=== PATIENT | female | born 1940 | race Two or more races ===

== ENCOUNTER 2018-04-25 16:19 | Inpatient (IN) | payer MEDICARE, MEDICAID ==
[~2018-04-25] VITALS: Ht 157.5 cm; Wt 65.8 kg
[2018-04-25] MEDS ORDERED: METHYL SALICYLATE/MENTHOL TOPICAL OINTMENT 29GM TUBE. TP PRN (17:45)
[2018-04-25] MEDS ORDERED: ACETAMINOPHEN 325 MG TABLET PO PRN (17:45)
[2018-04-25] MEDS ORDERED: MAG HYDROX/AL HYDROX/SIMETH 30 ML ORAL.SUSP PO PRN (17:45)
[2018-04-25] MEDS ORDERED: MAGNESIUM HYDROXIDE 2,400 MG/30 ML ORAL.SUSP. PO PRN (17:45)
[2018-04-25 17:48] VITALS: BP 146/64
[2018-04-25] MEDS ORDERED: FURO20TA3 PO (19:11)
[2018-04-25] MEDS ORDERED: ESCI10TA2 PO (19:11)
[2018-04-25] MEDS ORDERED: PANT40TA3 PO (19:11)
[2018-04-25] MEDS ORDERED: SENN-80 PO (19:11)
[2018-04-25] MEDS ORDERED: SODI44SP NS (19:11)
[2018-04-25] MEDS ORDERED: CALC11776 PO (19:11)
[2018-04-25] MEDS ORDERED: SAXA5TAB PO (19:11)
[2018-04-25] MEDS ORDERED: LORA0.5T PO (19:11)
[2018-04-25] MEDS ORDERED: CARB1TAB22 PO (19:11)
[2018-04-25] MEDS ORDERED: LEVO50TA5 PO (19:11)
[2018-04-25] MEDS ORDERED: RISP0.5T3 PO (19:11)
[2018-04-25] MEDS ORDERED: LEVO5TAB29 PO (19:11)
[2018-04-25] MEDS ORDERED: MEMA10TA PO (19:11)
[2018-04-25] MEDS ORDERED: LOSA50TA86 PO (19:11)
[2018-04-25] MEDS ORDERED: POTA10TA10 PO (19:11)
[2018-04-25] MEDS ORDERED: METF10007 PO (19:11)
[2018-04-25] MEDS ORDERED: DONE5TAB7 PO (19:11)
[2018-04-25] MEDS ORDERED: OXYB5TAB7 PO (19:11)
[2018-04-25] MEDS ORDERED: HYDR-3165 PO (19:11)
[2018-04-25] MEDS ORDERED: CHOL5POW PO (19:11)
[2018-04-25] MEDS ORDERED: ATOR10TA60 PO (19:11)
[2018-04-25] MEDS ORDERED: LISI2.5T PO (19:11)
[2018-04-25] MEDS ORDERED: CALCIUM CARBONATE 500 MG TAB.CHEW PO PRN (19:45)
--- NOTE | 2018-04-25 20:20 | HP ---
ADMIT DATE: 04/25/2018 PSYCHIATRIC ADMISSION HISTORY/EVALUATION This note covers elements not covered in my initial note on 04/25/2018. IDENTIFYING DATA: The patient is a 77-year-old female referred to us from [place], [place] by Dr. Yusuf Gruber, her primary care physician. After the patient was referred to the Emergency Room at [facility] from [facility] where she resides, the patient had been refusing medications for the past 4 days. She had been agitated, combative, threatening staff, anxious, fearful, uncooperative. She had been to the ER x 2 and adjustments had been attempted in her psychotropics including Aricept, Ativan p.r.n., Namenda, and Risperdal. She has been at [facility] inpatient psychiatry service in the past. She has failed all of this and then was admitted to [facility] from the ER. She was medically stabilized. The behavior is persisted. Nursing facility were unable to take her back until she was psychiatrically stable and we have been contacted with the request for inpatient psychiatric stabilization. CHIEF COMPLAINT: "I came here today." HISTORY OF PRESENT ILLNESS: The patient has a history of dementia, Alzheimer's vascular type. She has been residing on the memory care unit at [facility]. At times, she seems more oriented than other times. She has had sleep and appetite changes, increasing paranoia. No active suicidal or homicidal ideation. She has been quite paranoid, psychotic, and agitated. PAST PSYCHIATRIC HISTORY: As noted above including inpatient psychiatric hospitalization at [facility] in the past and we will request those records. PAST MEDICAL HISTORY: Positive for diabetes mellitus, peripheral neuropathy, hypertension, dyslipidemia, recurrent falls, anemia. ALLERGIES: PENICILLIN, MEDROL DOSEPAK. DIET: She is 2% transfer on a carb-controlled diet. FAMILY HISTORY: Noncontributory. SOCIAL HISTORY: No history of alcohol or drug abuse, physical, sexual, or elder abuse. Not known to be a perpetrator. 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 REACTION TO HOSPITALIZATION: The patient is accepting of it. ASSETS: Supportive family. MENTAL STATUS EXAMINATION: The patient was seen individually evening of 04/25/2018. The patient is oriented to herself. Insight, judgment, recent and remote memory, attention, concentration, fund of knowledge poor, consistent with her diagnosis. Nevertheless, the patient did know she was administered earlier today. She knew the year was 2018, unsure of the date, thought the president was president Ector, then changed it to President Mata and then finally with some assistance from me, she was able to recognize president Cooper as the president. She was unaware how long he had been president. Unable to do serial 7's. LABORATORY DATA: Reviewed. IMPRESSION: Major neurocognitive disorder, Alzheimer, vascular with delusion, depression, behavioral disturbance; anxiety disorder, unspecified; impulse control disorder, unspecified. Rest as above. PLAN: Admit to Geropsychiatry Unit at [facility]. I will see the patient daily individually from a psychiatric standpoint, medical followup with Dr. Anderson. Continue the patient on her current psychotropics and I have reviewed the EMRAD. Observe the patient's baseline, then adjust as clinically indicated. KYE BOLIVAR MD DR: MARGARITA/tiffanie JOB#: [id number] / [id number]
[2018-04-25] MEDS: SENNOSIDES 8.6 MG TABLET PO SCH (20:53)
[2018-04-25] MEDS: CHOLESTYRAMINE/ASPARTAME 4 GM PACKET PO SCH (20:53)
[2018-04-25] MEDS: risperiDONE 0.25 MG TABLET. PO SCH (20:53)
[2018-04-25] MEDS: MEMANTINE 10 MG TABLET. PO SCH (20:53)
[2018-04-25] MEDS: DONEPEZIL HCL 5 MG TABLET. PO SCH (20:54)
[2018-04-25] MEDS: CETIRIZINE HCL 10 MG TABLET PO SCH (20:54)
[2018-04-25] MEDS: POTASSIUM CHLORIDE 10 MEQ TABLET.ER. PO SCH (20:54)
[2018-04-25] MEDS: ATORVASTATIN CALCIUM 10 MG TABLET. PO SCH (20:54)
[2018-04-25] MEDS: LINAGLIPTIN 5 MG TABLET PO SCH (20:54)
[2018-04-25] MEDS: CARBIDOPA/LEVODOPA 25/100MG TABLET PO SCH (20:54)
[2018-04-25] MEDS: CITALOPRAM 20 MG TABLET. PO SCH (20:54)
[2018-04-25] MEDS: SODIUM CHLORIDE 0.65% NASAL SPRAY 45ML BOTTLE. NS SCH (20:55)
--- NOTE | 2018-04-25 22:57 | PDOC ---
Exam Note: Dileep Note: Please also refer to the separate dictated note~for this date of service dictated separately. Discussed the patient with Nursing staff reviewed the chart.~Reviewed interim history and current functioning. Reviewed vital signs,~ Labs/ Radiology~and current medications noted below. Continue current treatment with the changes noted in the dictated addendum note Assessment: Vital Signs: Vital Signs Date Time Temp Pulse Resp B/P (MAP) Pulse Ox O2 Delivery O2 Flow Rate FiO2 04/25/18 17:48 97.4 73 20 146/64 (91) 96 Labs: Laboratory Tests Test 04/25/18 18:10 Magnesium Level 1.7 mg/dL (1.8-2.4) L Current Medications: Meds: Current Medications Acetaminophen (Tylenol) 650 mg PRN Q6HRS PRN PO PAIN / TEMP; Start 04/25/18 at 17:45 Multi-Ingredient Ointment (Analgesic [place]) 1 anne PRN QID PRN TP MUSCLE PAIN; Start 04/25/18 at 17:45 Al Hydroxide/Mg Hydroxide (Mylanta Plus Xs) 15 ml PRN AFTMEALHC PRN PO DYSPEPSIA; Start 04/25/18 at 17:45 Magnesium Hydroxide (Milk Of Magnesia) 2,400 mg PRN QHS PRN PO CONSTIPATION; Start 04/25/18 at 17:45 Carbidopa/Levodopa (Sinemet 25/100) 1 tab TID PO Last administered on at 20:54; Start 04/25/18 at 21:00 Donepezil HCl (Aricept) 5 mg QHS PO Last administered on 04/25/18at 20:54; Start 04/25/18 at 21:00 Citalopram Hydrobromide (CeleXA) 20 mg QHS PO Last administered on 04/25/18at 20 :54; Start 04/25/18 at 21:00 Lorazepam (Ativan) 0.25 mg PRN Q6HRS PRN PO ANXIETY / AGITATION; Start at 19:30 Memantine (Namenda) 10 mg BID PO Last administered on 04/25/18at 20:53; Start at 21:00 Risperidone (RisperDAL) 0.25 mg QHS PO Last administered on 04/25/18at 20:53; Start 04/25/18 at 21:00 Furosemide (Lasix) 20 mg DAILY PO ; Start 04/26/18 at 09:00 Losartan Potassium (Cozaar) 100 mg DAILY PO ; Start 04/26/18 at 09:00 Oxybutynin Chloride (Ditropan) 5 mg DAILYBFRSUP PO ; Start 04/26/18 at 17:00 Atorvastatin Calcium (Lipitor) 10 mg QHS PO Last administered on 04/25/18at 20: 54; Start 04/25/18 at 21:00 Calcium Carbonate/ Glycine (Tums) 1,000 mg PRN BID PRN PO DYSPEPSIA; Start at 19:45 Cholestyramine Resin (Questran Light) 4 gm BID PO Last administered on at 20:53; Start 04/25/18 at 21:00 Acetaminophen/ Hydrocodone Bitart (Lortab 5/325) 1 tab PRN Q6HRS PRN PO PAIN; Start 04/25/18 at 19:45 Cetirizine HCl (ZyrTEC) 10 mg QHS PO Last administered on 04/25/18at 20:54; Start 04/25/18 at 21:00 Levothyroxine Sodium (Synthroid) 50 mcg DAILY06 PO ; Start 04/26/18 at 06:00 Lisinopril (Prinivil) 2.5 mg DAILY PO ; Start 04/26/18 at 09:00 Metformin HCl (Glucophage) 1,000 mg DAILYWBKFT PO ; Start 04/26/18 at 08:00 Pantoprazole Sodium (Protonix) 40 mg DAILY06 PO ; Start 04/26/18 at 06:00 Potassium Chloride (Klor-Con) 10 meq QHS PO Last administered on 04/25/18at 20: 54; Start 04/25/18 at 21:00 Linagliptin (Tradjenta) 5 mg QHS PO Last administered on 04/25/18at 20:54; Start 04/25/18 at 21:00 Sennosides (Senna) 8.6 mg QHS PO Last administered on 04/25/18at 20:53; Start at 21:00 Sodium Chloride (Saline Mist Nasal) 1 anne QID NS Last administered on at 20:55; Start 04/25/18 at 21:00 Active Scripts Active Reported Xyzal (Levocetirizine Dihydrochloride) 5 Mg Tablet 5 Mg PO QHS Tums Ultra Strength (Calcium Carbonate) 1,177 Mg Tab.chew 1,177 Mg PO PRN BID PRN Senna (Sennosides) 8.6 Mg Tablet 8.6 Mg PO QHS Risperidone 0.5 Mg Tablet 0.25 Mg PO QHS Protonix (Pantoprazole Sodium) 40 Mg Tablet.dr 40 Mg PO DAILY06 Potassium Chloride 10 Meq Tablet.er 10 Meq PO QHS Oxybutynin Chloride 5 Mg Tablet 5 Mg PO DAILYBFRSUP Onglyza (Saxagliptin Hcl) 5 Mg Tablet 5 Mg PO QHS Metformin Hcl 1,000 Mg Tablet 1,000 Mg PO DAILYWBKFT Namenda (Memantine Hcl) 10 Mg Tablet 10 Mg PO BID Losartan Potassium (Losartan Potassium) 50 Mg Tablet 100 Mg PO DAILY Lorazepam 0.5 Mg Tablet 0.25 Mg PO PRN Q6HRS PRN Lisinopril 2.5 Mg Tablet 2.5 Mg PO DAILY Levothyroxine Sodium 50 Mcg Tablet 50 Mcg PO DAILY06 Furosemide 20 Mg Tablet 20 Mg PO DAILY Escitalopram Oxalate 10 Mg Tablet 10 Mg PO QHS Donepezil Hcl 5 Mg Tablet 5 Mg PO QHS [place] (Sodium Chloride) 44 Ml [place] 44 Ml NS QID Cholestyramine Resin (Cholestyramine) 5 Gm Powder 4 Gm PO BID Carbidopa-Levodopa 25-100 Tab (Carbidopa/Levodopa) 1 Each Tablet 1 Each PO TID Atorvastatin Calcium 10 Mg Tablet 10 Mg PO QHS [place] 5-325 Tablet (Hydrocodone Bit/Acetaminophen) 1 Each Tablet 1 Tab PO PRN Q6HRS PRN I have reviewed the current psychotropics carefully including drug interactions. Risk benefit ratio favors no change other than as noted in my dictated progress note. Diagnosis: Problems: (1) Anxiety disorder (2) Dementia in Alzheimer's disease with depression (3) Dementia in Alzheimer's disease with delusions (4) Dementia, vascular, with delusions (5) Dementia, vascular, with depression (6) Impulse control disorder (7) Major depressive disorder, recurrent episode KYE BOLIVAR MD Apr 25, 2018 22:57
[2018-04-25 23:39] LABS: BACTERIA,URINE MANY /HPF (0-FEW); BILIRUBIN,URINE NEG (NEG); CLARITY,URINE CLEAR; COLOR,URINE YELLOW; GLUCOSE,URINE NEG (NEG); NITRITE,URINE NEG (NEG); RBC,URINE 0 /HPF (0-2); SQUAMOUS EPITHELIAL CELL,UR OCC /LPF; UROBILINOGEN,URINE 0.2 mg/dL (0.2 mg/dL)
[2018-04-26] MEDS ORDERED: PANTOPRAZOLE 40 MG TABLET. PO SCH (06:00)
[2018-04-26] MEDS: LEVOTHYROXINE 50 MCG TABLET PO SCH (06:06)
[2018-04-26 06:38] VITALS: BP 146/66
[2018-04-26 07:13] LABS: HEMOGLOBIN A1C 7.6 % (4.8-5.6)
[2018-04-26] MEDS ORDERED: metFORMIN 500 MG TABLET PO SCH (08:00)
[2018-04-26] MEDS: CHOLESTYRAMINE/ASPARTAME 4 GM PACKET PO SCH ×2 (08:04→19:27)
[2018-04-26] MEDS: HYDROcodone/APAP 5/325MG 1 TAB TABLET PO PRN ×2 (08:04→18:16)
[2018-04-26] MEDS: LISINOPRIL 2.5 MG TABLET PO SCH (08:05)
[2018-04-26] MEDS: PANTOPRAZOLE 40 MG TABLET. PO SCH (08:05)
[2018-04-26] MEDS: metFORMIN 500 MG TABLET PO SCH ×2 (08:05→17:50)
[2018-04-26] MEDS: CARBIDOPA/LEVODOPA 25/100MG TABLET PO SCH ×3 (08:06→19:30)
[2018-04-26] MEDS: FUROSEMIDE 20 MG TABLET PO SCH (08:06)
[2018-04-26] MEDS: MEMANTINE 10 MG TABLET. PO SCH ×2 (08:06→19:26)
[2018-04-26] MEDS: LOSARTAN 50 MG TABLET. PO SCH (08:06)
[2018-04-26] MEDS: SODIUM CHLORIDE 0.65% NASAL SPRAY 45ML BOTTLE. NS SCH ×4 (08:48→21:00)
--- NOTE | 2018-04-26 10:34 | RAD ---
RS Compliance Statement: One or more of the following individualized dose reduction techniques were utilized for this examination: 1. Automated exposure control 2. Adjustment of the mA and/or kV according to patient size 3. Use of iterative reconstruction technique CT head without contrast 04/26/2018 8:00 AM INDICATION: Altered mental status, multiple falls COMPARISON: None available TECHNIQUE: Multiple axial CT images of the head were obtained from skull base through the vertex without intravenous contrast. FINDINGS: Head: Ventricles, sulci and basal cisterns are within normal limits. Low-attenuation in the periventricular white matter is suggestive of chronic small vessel ischemic changes. There is encephalomalacia in the right temporal pole. There is no hydrocephalus. [place]-white matter differentiation is normal. There is no acute intracranial hemorrhage. There is no mass, mass effect or midline shift. Posterior fossa is normal in appearance. Findings are suggestive of hyperostosis frontalis internal. Visualized portions of the orbits are normal. Moderate mucosal thickening of the left ethmoid air cells. Mastoid air cells are well aerated. Scalp and calvaria are normal. IMPRESSION: No acute intracranial hemorrhage. Low-attenuation in the periventricular white matter is suggestive of chronic small vessel ischemic changes. There is encephalomalacia involving the right temporal pole. Correlate with any prior history of trauma or infarct. Electronically signed by: Nilda Vegas MD (04/26/2018 10:29 AM) [id number]
[2018-04-26] MEDS: LORazepam 0.5 MG TABLET PO PRN ×2 (13:29→18:16)
[2018-04-26] MEDS ORDERED: CHOLECALCIFEROL (VITAMIN D3) 50,000 UNIT CAPSULE PO SCH (16:15)
[2018-04-26 16:16] VITALS: BP 160/85
[2018-04-26] MEDS ORDERED: OXYBUTYNIN CHLORIDE 5 MG TABLET PO SCH (17:00)
[2018-04-26] MEDS: POTASSIUM CHLORIDE 10 MEQ TABLET.ER. PO SCH (19:25)
[2018-04-26] MEDS: DONEPEZIL HCL 5 MG TABLET. PO SCH (19:26)
[2018-04-26] MEDS: CETIRIZINE HCL 10 MG TABLET PO SCH (19:26)
[2018-04-26] MEDS: SENNOSIDES 8.6 MG TABLET PO SCH (19:26)
[2018-04-26] MEDS: LINAGLIPTIN 5 MG TABLET PO SCH (19:26)
[2018-04-26] MEDS: risperiDONE 0.25 MG TABLET. PO SCH (19:26)
[2018-04-26] MEDS: CITALOPRAM 20 MG TABLET. PO SCH (19:26)
[2018-04-26] MEDS: ATORVASTATIN CALCIUM 10 MG TABLET. PO SCH (19:26)
[2018-04-26] MEDS: ASCORBIC ACID 500 MG TABLET PO SCH (21:00)
[2018-04-26] MEDS: FERROUS SULFATE 325 MG TABLET. PO SCH (21:00)
[2018-04-26] MEDS: ENOXAPARIN 40 MG/0.4 ML SYRINGE. SQ SCH (21:00)
[2018-04-26] MEDS: MAGNESIUM OXIDE 400 MG TABLET PO SCH (21:00)
--- NOTE | 2018-04-26 22:48 | PDOC ---
Exam Note: Dileep Note: Please also refer to the separate dictated note~for this date of service dictated separately.~Patient seen individually. Discussed the patient with Nursing staff reviewed the chart.~Reviewed interim history and current functioning. Reviewed vital signs,~Labs/ Radiology~and current medications noted below. Continue current treatment with the changes noted in the dictated addendum note Assessment: Vital Signs: Vital Signs Date Time Temp Pulse Resp B/P (MAP) Pulse Ox O2 Delivery O2 Flow Rate FiO2 04/26/18 18:16 20 99 04/26/18 16:16 97.4 71 160/85 (110) Room Air I&O Intake and Output 04/26/18 07:01 Intake Total 240 ml Output Total 350 ml Balance -110 ml Intake Oral 240 ml Output Urine Total 350 ml Labs: Laboratory Tests Test 04/25/18 23:15 04/26/18 07:42 04/26/18 11:41 04/26/18 17:13 Urine Collection Type U cath Urine Color Yellow Urine Clarity Clear Urine pH 6.5 Urine Specific [place] 1.015 Urine Protein 30 mg/dl (NEG-TRACE) Urine Glucose (UA) Neg mg/dL (NEG) Urine Ketones (Stick) Neg mg/dL (NEG) Urine Blood Neg (NEG) Urine Nitrite Neg (NEG) Urine Bilirubin Neg (NEG) Urine Urobilinogen Dipstick 0.2 mg/dL (0.2 mg/dL) Urine Leukocyte Esterase Neg (NEG) Urine RBC 0 /HPF (0-2) Urine WBC 1-4 /HPF (0-4) Urine Squamous Epithelial Cells Occ /LPF Urine Bacteria Many /HPF (0-FEW) Glucose (Fingerstick) 195 mg/dL (70-99) H 195 mg/dL (70-99) H 160 mg/dL (70-99) H Test 04/26/18 19:20 Glucose (Fingerstick) 177 mg/dL (70-99) H Current Medications: Meds: Current Medications Acetaminophen (Tylenol) 650 mg PRN Q6HRS PRN PO PAIN / TEMP; Start 04/25/18 at 17:45 Multi-Ingredient Ointment (Analgesic [place]) 1 anne PRN QID PRN TP MUSCLE PAIN; Start 04/25/18 at 17:45 Al Hydroxide/Mg Hydroxide (Mylanta Plus Xs) 15 ml PRN AFTMEALHC PRN PO DYSPEPSIA; Start 04/25/18 at 17:45 Magnesium Hydroxide (Milk Of Magnesia) 2,400 mg PRN QHS PRN PO CONSTIPATION; Start 04/25/18 at 17:45 Carbidopa/Levodopa (Sinemet 25/100) 1 tab TID PO Last administered on 19:30; Start 04/25/18 at 21:00 Donepezil HCl (Aricept) 5 mg QHS PO Last administered on 04/26/18 19:26; Start 04/25/18 at 21:00 Citalopram Hydrobromide (CeleXA) 20 mg QHS PO Last administered on 04/26/18 19 :26; Start 04/25/18 at 21:00 Lorazepam (Ativan) 0.25 mg PRN Q6HRS PRN PO ANXIETY / AGITATION Last administered on 04/26/18 18:16; Start 04/25/18 at 19:30 Memantine (Namenda) 10 mg BID PO Last administered on 04/26/18 19:26; Start at 21:00 Risperidone (RisperDAL) 0.25 mg QHS PO Last administered on 04/26/18 19:26; Start 04/25/18 at 21:00 Furosemide (Lasix) 20 mg DAILY PO Last administered on 04/26/18 08:06; Start 04/26/18 at 09:00 Losartan Potassium (Cozaar) 100 mg DAILY PO Last administered on 04/26/18at 08: 06; Start 04/26/18 at 09:00 Oxybutynin Chloride (Ditropan) 5 mg DAILYBFRSUP PO ; Start 04/26/18 at 17:00; Stop 04/26/18 at 17:00; Status DC Atorvastatin Calcium (Lipitor) 10 mg QHS PO Last administered on 04/26/18 19: 26; Start 04/25/18 at 21:00 Calcium Carbonate/ Glycine (Tums) 1,000 mg PRN BID PRN PO DYSPEPSIA; Start at 19:45 Cholestyramine Resin (Questran Light) 4 gm BID PO Last administered on at 19:27; Start 04/25/18 at 21:00 Acetaminophen/ Hydrocodone Bitart (Lortab 5/325) 1 tab PRN Q6HRS PRN PO PAIN Last administered on 04/26/18 18:16; Start 04/25/18 at 19:45 Cetirizine HCl (ZyrTEC) 10 mg QHS PO Last administered on 04/26/18 19:26; Start 04/25/18 at 21:00 Levothyroxine Sodium (Synthroid) 50 mcg DAILY06 PO Last administered on 06:06; Start 04/26/18 at 06:00 Lisinopril (Prinivil) 2.5 mg DAILY PO Last administered on 04/26/18 08:05; Start 04/26/18 at 09:00 Metformin HCl (Glucophage) 1,000 mg DAILYWBKFT PO ; Start 04/26/18 at 08:00; Stop 04/26/18 at 08:00; Status DC Pantoprazole Sodium (Protonix) 40 mg DAILY06 PO ; Start 04/26/18 at 06:00; Stop 04/26/18 at 06:00; Status DC Potassium Chloride (Klor-Con) 10 meq QHS PO Last administered on 04/26/18 19: 25; Start 04/25/18 at 21:00 Linagliptin (Tradjenta) 5 mg QHS PO Last administered on 04/26/18 19:26; Start 04/25/18 at 21:00 Sennosides (Senna) 8.6 mg QHS PO Last administered on 04/26/18 19:26; Start at 21:00 Sodium Chloride (Saline Mist Nasal) 1 anne QID NS Last administered on at 20:55; Start 04/25/18 at 21:00 Metformin HCl (Glucophage) 1,000 mg BIDWMEALS PO Last administered on at 17:50; Start 04/26/18 at 08:00 Pantoprazole Sodium (Protonix) 40 mg DAILYAC PO Last administered on 04/26/18 08:05; Start 04/26/18 at 07:30 Vitamin D (Vitamin D3) 50,000 unit WEEKLY PO Last administered on 04/26/18 17: 50; Start 04/26/18 at 16:15 Ferrous Sulfate (Feosol) 325 mg BID PO ; Start 04/26/18 at 21:00 Ascorbic Acid (Vitamin C) 500 mg BID PO ; Start 04/26/18 at 21:00 Magnesium Oxide (Magnesium Oxide) 400 mg BID PO ; Start 04/26/18 at 21:00 Enoxaparin Sodium (Lovenox 40mg Syringe) 40 mg DAILY SQ ; Start 04/26/18 at 21: 00 Olanzapine (ZyPREXA ZYDIS) 2.5 mg PRN Q2HR PRN PO PSYCHOSIS; Start 04/26/18 at 18:45 Active Scripts Active Reported Xyzal (Levocetirizine Dihydrochloride) 5 Mg Tablet 5 Mg PO QHS Tums Ultra Strength (Calcium Carbonate) 1,177 Mg Tab.chew 1,177 Mg PO PRN BID PRN Senna (Sennosides) 8.6 Mg Tablet 8.6 Mg PO QHS Risperidone 0.5 Mg Tablet 0.25 Mg PO QHS Protonix (Pantoprazole Sodium) 40 Mg Tablet.dr 40 Mg PO DAILY06 Potassium Chloride 10 Meq Tablet.er 10 Meq PO QHS Oxybutynin Chloride 5 Mg Tablet 5 Mg PO DAILYBFRSUP Onglyza (Saxagliptin Hcl) 5 Mg Tablet 5 Mg PO QHS Metformin Hcl 1,000 Mg Tablet 1,000 Mg PO DAILYWBKFT Namenda (Memantine Hcl) 10 Mg Tablet 10 Mg PO BID Losartan Potassium (Losartan Potassium) 50 Mg Tablet 100 Mg PO DAILY Lorazepam 0.5 Mg Tablet 0.25 Mg PO PRN Q6HRS PRN Lisinopril 2.5 Mg Tablet 2.5 Mg PO DAILY Levothyroxine Sodium 50 Mcg Tablet 50 Mcg PO DAILY06 Furosemide 20 Mg Tablet 20 Mg PO DAILY Escitalopram Oxalate 10 Mg Tablet 10 Mg PO QHS Donepezil Hcl 5 Mg Tablet 5 Mg PO QHS [place] (Sodium Chloride) 44 Ml [place] 44 Ml NS QID Cholestyramine Resin (Cholestyramine) 5 Gm Powder 4 Gm PO BID Carbidopa-Levodopa 25-100 Tab (Carbidopa/Levodopa) 1 Each Tablet 1 Each PO TID Atorvastatin Calcium 10 Mg Tablet 10 Mg PO QHS [place] 5-325 Tablet (Hydrocodone Bit/Acetaminophen) 1 Each Tablet 1 Tab PO PRN Q6HRS PRN I have reviewed the current psychotropics carefully including drug interactions. Risk benefit ratio favors no change other than as noted in my dictated progress note. Diagnosis: Problems: (1) Anxiety disorder (2) Dementia in Alzheimer's disease with depression (3) Dementia in Alzheimer's disease with delusions (4) Dementia, vascular, with delusions (5) Dementia, vascular, with depression (6) Impulse control disorder (7) Major depressive disorder, recurrent episode KYE BOLIVAR MD Apr 26, 2018 22:48
[2018-04-27] MEDS: LEVOTHYROXINE 50 MCG TABLET PO SCH (05:50)
[2018-04-27 06:03] VITALS: BP 115/65
--- NOTE | 2018-04-27 06:28 | CONS ---
DATE OF CONSULTATION: 04/26/2018 REASON FOR CONSULTATION: Medical management. HISTORY OF PRESENT ILLNESS: The patient is a 77-year-old female patient, who apparently states that she resides at [facility] in [place] and who apparently has been in and out of hospital, as she apparently has been very agitated. She apparently has been refusing her medication for the last 4 days and therefore has not seen given any of her medication. She has now become agitated and combative. She was in the Emergency Room multiple times and eventually she was admitted with a plan to arrange for her to be transferred to [facility]; however, she eventually was transferred to our Psych Unit for inpatient psychiatric stabilization. PAST MEDICAL HISTORY: Significant for type 2 diabetes, diabetic neuropathy, hypertension, hyperlipidemia, frequent falls and chronic anemia. PAST PSYCHIATRIC HISTORY: Significant for Alzheimer's dementia with behavioral disturbances; anxiety and depression. PAST SURGICAL HISTORY: Significant for tonsillectomy and adenoidectomy under the age of 12 in 1946. She has a tumor removed from her bladder on 03/29/1993, has vaginal hysterectomy in 1993, the cyst removed from left breast. She has also had cystoscopy done on 09/20/2013. FAMILY HISTORY: Positive for a stroke in her sister and brother. SOCIAL HISTORY: She apparently resides at [facility]. She does not smoke, drink alcohol or use any recreational drugs. REVIEW OF SYSTEMS: As per history of present illness. The patient stated that she has problem with urine retention for years now because of her diabetes, but denied any other complaint. PHYSICAL EXAMINATION: GENERAL: When I examined her, she was pale, but no jaundice or cyanosis. No lymphadenopathy, no thyromegaly. No jugular venous distension. No limb edema. VITAL SIGNS: Her heart rate was 76, blood pressure was 146/66, temperature was 97.4, respiratory rate 20, and oxygen saturation was 97%. HEAD, EYES, EARS, NOSE AND THROAT: Showed normocephalic, atraumatic. NECK: Supple. HEART: Showed normal first and second heart sounds. No gallop, rub or murmur. CHEST: Clear to auscultation. No crepitation or rhonchi. ABDOMEN: Distended, soft, nontender. No guarding or rigidity. No organomegaly. All hernial orifice intact. Bowel sounds normal. NEUROLOGIC: She was demented, but without any obvious lateralizing sign. All her cranial nerves intact. EXTREMITIES: She moves extremities without difficulty. She was able to walk with a walker with standby assist. ALLERGIES: She is allergic to PENICILLIN AND METHYLPREDNISOLONE. MEDICATIONS: She is currently on following medications, Xyzal 5 mg at bedtime, Aricept 5 mg at bedtime, cholestyramine 4 grams twice a day, atorvastatin calcium 10 mg at bedtime. She is on lisinopril 2.5 mg daily, losartan potassium 100 mg once a day, hydrocodone/APAP 5/325 one tablet every 6 hours, escitalopram oxalate 10 mg at bedtime, risperidone 0.25 mg at bedtime, lorazepam 0.25 mg every 6 hours, carbidopa/levodopa 25/100 three times a day, Namenda 10 mg twice a day, potassium chloride 10 mEq at bedtime, furosemide 20 mg once a day. Sodium chloride, deep saline nasal spray 1 spray to each nostril 4 times a day, calcium carbonate twice a day for dyspepsia, senna 1 tablet at bedtime, Protonix 40 mg once a day, metformin 1000 mg daily with breakfast. She is on levothyroxine 50 mcg once a day, oxybutynin chloride 5 mg daily with supper. LABORATORY DATA: Showed that her white cell count was 4300, hemoglobin 10, hematocrit 30, MCV 80 and platelet count of 253,000 with normal manual differential. Her urine was yellow, clear with a pH of 7, specific gravity 1.009, 2+ protein, 1+ glucose. The urine was negative for ketones, bilirubin, 1+ blood. Normal urobilinogen, negative for nitrite and leukocyte esterase. There were 0-5 wbc's, 6-20 rbc's, no bacteria. Her chemistry showed that her serum sodium was 132, potassium 4.1, chloride 99, bicarbonate 24, anion gap of 9, total protein was 7.5, albumin 3.5, calcium was 9.2. Total bilirubin 0.5, alkaline phosphatase was 127. AST, ALT were normal. Vitamin B12 was 621 pg/mL. Her total T4 was 11.1 and TSH was 2.7. Her toxic drug screen was negative. IMPRESSION AND PLAN: In summary, this is a 77-year-old female patient, who apparently was living in the dementia unit of the [facility] in [place], who was admitted with decreased agitation and apparently has been refusing her medication and the nursing facilities refusing to take her back this at this point. She has a multitude of medical problems including type 2 diabetes, diabetic neuropathy, hypertension, hyperlipidemia, frequent falls and chronic anemia. She also has problem with urine retention, probably due to diabetic neuropathy and neurogenic bladder that required straight catheterization multiple times. Her lab work is significant for the fact that she has chronic normochromic normocytic anemia. Her urinalysis was unremarkable. Her chemistry showed that she has mild hyponatremia with serum sodium of 132 and otherwise her toxic screen was essentially negative. Her thyroid function of normal. So all in all, the patient seemed to be medically stable. Her hemoglobin A1c is slightly elevated at 7.6 and her 25-hydroxy vitamin D is low at 15.5. She is only on metformin that obviously can be increased given her kidney functions are normal. In fact, her estimated GFR was 59 mL per minute and her creatinine was 0.922 mg/dL. So my plan is going to start her on ergocalciferol. I will increase her metformin to 1000 mg twice a day. Follow her labs closely. Also, check her serum iron, TIBC. Her serum iron actually 43, TIBC is high at 386 and iron saturation was 11 consistent with iron deficiency anemia. We will also start her on oral iron supplement together with ascorbic acid. Thank you, Dr. Vizcaino for allowing me to participate in the care of this patient. AURELIA JONES MD DR: CHELSEY/tiffanie JOB#: [id number] / [id number]
[2018-04-27] MEDS: LOSARTAN 50 MG TABLET. PO SCH (09:00)
[2018-04-27] MEDS: PANTOPRAZOLE 40 MG TABLET. PO SCH (09:42)
[2018-04-27] MEDS: metFORMIN 500 MG TABLET PO SCH ×2 (09:42→17:29)
[2018-04-27] MEDS: FERROUS SULFATE 325 MG TABLET. PO SCH ×2 (09:43→20:11)
[2018-04-27] MEDS: MEMANTINE 10 MG TABLET. PO SCH ×2 (09:43→20:11)
[2018-04-27] MEDS: FUROSEMIDE 20 MG TABLET PO SCH (09:43)
[2018-04-27] MEDS: MAGNESIUM OXIDE 400 MG TABLET PO SCH ×2 (09:43→20:10)
[2018-04-27] MEDS: CARBIDOPA/LEVODOPA 25/100MG TABLET PO SCH ×3 (09:44→20:11)
[2018-04-27] MEDS: CHOLESTYRAMINE/ASPARTAME 4 GM PACKET PO SCH ×2 (09:44→20:09)
[2018-04-27] MEDS: ASCORBIC ACID 500 MG TABLET PO SCH ×2 (09:44→20:10)
[2018-04-27] MEDS: LISINOPRIL 2.5 MG TABLET PO SCH (09:44)
[2018-04-27] MEDS: SODIUM CHLORIDE 0.65% NASAL SPRAY 45ML BOTTLE. NS SCH ×4 (09:46→20:12)
[2018-04-27] MEDS: ENOXAPARIN 40 MG/0.4 ML SYRINGE. SQ SCH (09:46)
[2018-04-27 16:37] VITALS: BP 159/68
[2018-04-27] MEDS: ATORVASTATIN CALCIUM 10 MG TABLET. PO SCH (20:10)
[2018-04-27] MEDS: LINAGLIPTIN 5 MG TABLET PO SCH (20:10)
[2018-04-27] MEDS: SENNOSIDES 8.6 MG TABLET PO SCH (20:10)
[2018-04-27] MEDS: risperiDONE 0.25 MG TABLET. PO SCH (20:10)
[2018-04-27] MEDS: DONEPEZIL HCL 5 MG TABLET. PO SCH (20:10)
[2018-04-27] MEDS: CITALOPRAM 20 MG TABLET. PO SCH (20:11)
[2018-04-27] MEDS: CETIRIZINE HCL 10 MG TABLET PO SCH (20:11)
[2018-04-27] MEDS: POTASSIUM CHLORIDE 10 MEQ TABLET.ER. PO SCH (20:11)
--- NOTE | 2018-04-27 22:45 | PDOC ---
Exam Note: Dileep Note: Please also refer to the separate dictated note~for this date of service dictated separately.~Patient seen individually. Discussed the patient with Nursing staff reviewed the chart.~Reviewed interim history and current functioning. Reviewed vital signs,~Labs/ Radiology~and current medications noted below. Continue current treatment with the changes noted in the dictated addendum note Assessment: Vital Signs: Vital Signs Date Time Temp Pulse Resp B/P (MAP) Pulse Ox O2 Delivery O2 Flow Rate FiO2 04/27/18 16:37 97.3 79 18 159/68 (98) 100 04/26/18 16:16 Room Air I&O Intake and Output 04/27/18 07:01 Intake Total 600 ml Balance 600 ml Intake Oral 600 ml Labs: Laboratory Tests Test 04/27/18 08:04 04/27/18 11:52 04/27/18 16:57 04/27/18 19:22 Glucose (Fingerstick) 138 mg/dL (70-99) H 172 mg/dL (70-99) H 165 mg/dL (70-99) H 174 mg/dL (70-99) H Current Medications: Meds: Current Medications Acetaminophen (Tylenol) 650 mg PRN Q6HRS PRN PO PAIN / TEMP; Start 04/25/18 at 17:45 Multi-Ingredient Ointment (Analgesic [place]) 1 anne PRN QID PRN TP MUSCLE PAIN; Start 04/25/18 at 17:45 Al Hydroxide/Mg Hydroxide (Mylanta Plus Xs) 15 ml PRN AFTMEALHC PRN PO DYSPEPSIA; Start 04/25/18 at 17:45 Magnesium Hydroxide (Milk Of Magnesia) 2,400 mg PRN QHS PRN PO CONSTIPATION; Start 04/25/18 at 17:45 Carbidopa/Levodopa (Sinemet 25/100) 1 tab TID PO Last administered on at 20:11; Start 04/25/18 at 21:00 Donepezil HCl (Aricept) 5 mg QHS PO Last administered on 04/27/18at 20:10; Start 04/25/18 at 21:00 Citalopram Hydrobromide (CeleXA) 20 mg QHS PO Last administered on 04/27/18at 20 :11; Start 04/25/18 at 21:00 Lorazepam (Ativan) 0.25 mg PRN Q6HRS PRN PO ANXIETY / AGITATION Last administered on 04/26/18 18:16; Start 04/25/18 at 19:30 Memantine (Namenda) 10 mg BID PO Last administered on 04/27/18 20:11; Start at 21:00 Risperidone (RisperDAL) 0.25 mg QHS PO Last administered on 04/27/18 20:10; Start 04/25/18 at 21:00 Furosemide (Lasix) 20 mg DAILY PO Last administered on 04/27/18 09:43; Start 04/26/18 at 09:00 Losartan Potassium (Cozaar) 100 mg DAILY PO Last administered on 04/26/18 08: 06; Start 04/26/18 at 09:00 Oxybutynin Chloride (Ditropan) 5 mg DAILYBFRSUP PO ; Start 04/26/18 at 17:00; Stop 04/26/18 at 17:00; Status DC Atorvastatin Calcium (Lipitor) 10 mg QHS PO Last administered on 04/27/18 20: 10; Start 04/25/18 at 21:00 Calcium Carbonate/ Glycine (Tums) 1,000 mg PRN BID PRN PO DYSPEPSIA; Start at 19:45 Cholestyramine Resin (Questran Light) 4 gm BID PO Last administered on 20:09; Start 04/25/18 at 21:00 Acetaminophen/ Hydrocodone Bitart (Lortab 5/325) 1 tab PRN Q6HRS PRN PO PAIN Last administered on 04/26/18 18:16; Start 04/25/18 at 19:45 Cetirizine HCl (ZyrTEC) 10 mg QHS PO Last administered on 04/27/18 20:11; Start 04/25/18 at 21:00 Levothyroxine Sodium (Synthroid) 50 mcg DAILY06 PO Last administered on 05:50; Start 04/26/18 at 06:00 Lisinopril (Prinivil) 2.5 mg DAILY PO Last administered on 04/27/18 09:44; Start 04/26/18 at 09:00 Metformin HCl (Glucophage) 1,000 mg DAILYWBKFT PO ; Start 04/26/18 at 08:00; Stop 04/26/18 at 08:00; Status DC Pantoprazole Sodium (Protonix) 40 mg DAILY06 PO ; Start 04/26/18 at 06:00; Stop 04/26/18 at 06:00; Status DC Potassium Chloride (Klor-Con) 10 meq QHS PO Last administered on 04/27/18 20: 11; Start 04/25/18 at 21:00 Linagliptin (Tradjenta) 5 mg QHS PO Last administered on 04/27/18 20:10; Start 04/25/18 at 21:00 Sennosides (Senna) 8.6 mg QHS PO Last administered on 04/27/18 20:10; Start at 21:00 Sodium Chloride (Saline Mist Nasal) 1 anne QID NS Last administered on 20:12; Start 04/25/18 at 21:00 Metformin HCl (Glucophage) 1,000 mg BIDWMEALS PO Last administered on 17:29; Start 04/26/18 at 08:00 Pantoprazole Sodium (Protonix) 40 mg DAILYAC PO Last administered on 04/27/18 09:42; Start 04/26/18 at 07:30 Vitamin D (Vitamin D3) 50,000 unit WEEKLY PO Last administered on 04/26/18 17: 50; Start 04/26/18 at 16:15 Ferrous Sulfate (Feosol) 325 mg BID PO Last administered on 04/27/18 20:11; Start 04/26/18 at 21:00 Ascorbic Acid (Vitamin C) 500 mg BID PO Last administered on 04/27/18 20:10; Start 04/26/18 at 21:00 Magnesium Oxide (Magnesium Oxide) 400 mg BID PO Last administered on 04/27/18 20:10; Start 04/26/18 at 21:00 Enoxaparin Sodium (Lovenox 40mg Syringe) 40 mg DAILY SQ Last administered on 09:46; Start 04/26/18 at 21:00 Olanzapine (ZyPREXA ZYDIS) 2.5 mg PRN Q2HR PRN PO PSYCHOSIS; Start 04/26/18 at 18:45 Glimepiride (Amaryl) 2 mg DAILY PO ; Start 04/28/18 at 09:00 Buspirone HCl (Buspar) 5 mg BIDWMEALS PO ; Start 04/28/18 at 08:00 Active Scripts Active Reported Xyzal (Levocetirizine Dihydrochloride) 5 Mg Tablet 5 Mg PO QHS Tums Ultra Strength (Calcium Carbonate) 1,177 Mg Tab.chew 1,177 Mg PO PRN BID PRN Senna (Sennosides) 8.6 Mg Tablet 8.6 Mg PO QHS Risperidone 0.5 Mg Tablet 0.25 Mg PO QHS Protonix (Pantoprazole Sodium) 40 Mg Tablet.dr 40 Mg PO DAILY06 Potassium Chloride 10 Meq Tablet.er 10 Meq PO QHS Oxybutynin Chloride 5 Mg Tablet 5 Mg PO DAILYBFRSUP Onglyza (Saxagliptin Hcl) 5 Mg Tablet 5 Mg PO QHS Metformin Hcl 1,000 Mg Tablet 1,000 Mg PO DAILYWBKFT Namenda (Memantine Hcl) 10 Mg Tablet 10 Mg PO BID Losartan Potassium (Losartan Potassium) 50 Mg Tablet 100 Mg PO DAILY Lorazepam 0.5 Mg Tablet 0.25 Mg PO PRN Q6HRS PRN Lisinopril 2.5 Mg Tablet 2.5 Mg PO DAILY Levothyroxine Sodium 50 Mcg Tablet 50 Mcg PO DAILY06 Furosemide 20 Mg Tablet 20 Mg PO DAILY Escitalopram Oxalate 10 Mg Tablet 10 Mg PO QHS Donepezil Hcl 5 Mg Tablet 5 Mg PO QHS [place] (Sodium Chloride) 44 Ml [place] 44 Ml NS QID Cholestyramine Resin (Cholestyramine) 5 Gm Powder 4 Gm PO BID Carbidopa-Levodopa 25-100 Tab (Carbidopa/Levodopa) 1 Each Tablet 1 Each PO TID Atorvastatin Calcium 10 Mg Tablet 10 Mg PO QHS [place] 5-325 Tablet (Hydrocodone Bit/Acetaminophen) 1 Each Tablet 1 Tab PO PRN Q6HRS PRN I have reviewed the current psychotropics carefully including drug interactions. Risk benefit ratio favors no change other than as noted in my dictated progress note. Diagnosis: Problems: (1) Anxiety disorder (2) Dementia in Alzheimer's disease with depression (3) Dementia in Alzheimer's disease with delusions (4) Dementia, vascular, with delusions (5) Dementia, vascular, with depression (6) Impulse control disorder (7) Major depressive disorder, recurrent episode KYE BOLIVAR MD Apr 27, 2018 22:45
--- NOTE | 2018-04-28 03:20 | PN ---
DATE: 04/26/2018 This is a late entry for 04/26/2018 covers elements not covered in my initial note. SUBJECTIVE: I met with the patient in the evening. 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 Around lunchtime, family came to visit her and then she was wanting to be discharged with them. When this did not happen, she was yelling, cursing, agitated, extremely unmanageable, slept 5-1/2 hours previous evening. Received Ativan p.r.n. after the family left, seemed to help a little, but had to be placed in the [place]. REVIEW OF SYSTEMS: Ambulation impaired, in wheelchair. No CV, , pulmonary, eye, ENT system symptoms on review. Reliability varies. MENTAL STATUS EXAM: Oriented to herself, situation. Insight limited, judgment marginal, language function intact, attention span short. Mood and affect remains somewhat anxious, labile. LABORATORY DATA: Reviewed. IMPRESSION: Major neurocognitive disorder, Alzheimer, vascular with delusion, depression, behavioral disturbance. Rest unchanged. PLAN: No change from initial note. May add BuSpar for anxiety. MAN Justin BOLIVAR MD DR: MARGARITA/tiffanie JOB#: [id number] / [id number]
[2018-04-28] MEDS: LEVOTHYROXINE 50 MCG TABLET PO SCH (06:28)
[2018-04-28 06:57] VITALS: BP 133/71
[2018-04-28 07:35] LABS: BASO % 1 % (0-3); EOS # 0.1 x10^3/uL (0.0-0.7); EOS % 4 % (0-3); HEMATOCRIT 29.1 % (36.0-47.0); HEMOGLOBIN 9.8 g/dL (12.0-15.5); LYMPH % 25 % (24-48); MEAN CORPUSCULAR HEMOGLOBIN 27 pg (25-35); MEAN CORPUSCULAR HGB CONC 34 g/dL (31-37); MEAN CORPUSCULAR VOLUME 81 fL (79-100); MONO # 0.3 x10^3/uL (0.0-1.1); MONO % 9 % (0-9); NEUT # 2.3 x10^3uL (1.8-7.7); NEUT % 61 % (31-73); PLATELET COUNT 223 x10^3/uL (140-400); RED BLOOD COUNT 3.62 x10^6/uL (3.50-5.40); RED CELL DISTRIBUTION WIDTH 16.1 % (11.5-14.5); WHITE BLOOD COUNT 3.8 x10^3/uL (4.0-11.0)
[2018-04-28 07:56] LABS: ALBUMIN 3.2 g/dL (3.4-5.0); ALBUMIN/GLOBULIN RATIO 0.9 (1.0-1.7); CALCIUM 8.8 mg/dL (8.5-10.1); CREATININE 1.1 mg/dL (0.6-1.0); GFR 48.2; POTASSIUM 4.5 mmol/L (3.5-5.1); TOTAL BILIRUBIN 0.7 mg/dL (0.2-1.0); TOTAL PROTEIN 6.8 g/dL (6.4-8.2)
[2018-04-28] MEDS: SODIUM CHLORIDE 0.65% NASAL SPRAY 45ML BOTTLE. NS SCH ×4 (09:00→20:23)
[2018-04-28] MEDS: FUROSEMIDE 20 MG TABLET PO SCH (11:53)
[2018-04-28] MEDS: ASCORBIC ACID 500 MG TABLET PO SCH ×2 (11:53→20:13)
[2018-04-28] MEDS: MAGNESIUM OXIDE 400 MG TABLET PO SCH ×2 (11:53→20:13)
[2018-04-28] MEDS: PANTOPRAZOLE 40 MG TABLET. PO SCH (11:53)
[2018-04-28] MEDS: metFORMIN 500 MG TABLET PO SCH ×2 (11:53→17:19)
[2018-04-28] MEDS: CARBIDOPA/LEVODOPA 25/100MG TABLET PO SCH ×3 (11:53→20:13)
[2018-04-28] MEDS: MEMANTINE 10 MG TABLET. PO SCH ×2 (11:54→20:13)
[2018-04-28] MEDS: CHOLESTYRAMINE/ASPARTAME 4 GM PACKET PO SCH ×2 (11:54→20:14)
[2018-04-28] MEDS: FERROUS SULFATE 325 MG TABLET. PO SCH ×2 (11:54→20:13)
[2018-04-28] MEDS: LOSARTAN 50 MG TABLET. PO SCH (11:54)
[2018-04-28] MEDS: LISINOPRIL 2.5 MG TABLET PO SCH (11:54)
[2018-04-28] MEDS: ENOXAPARIN 40 MG/0.4 ML SYRINGE. SQ SCH (11:55)
[2018-04-28] MEDS: busPIRone 5 MG TABLET. PO SCH ×2 (11:56→17:19)
[2018-04-28] MEDS: GLIMEPIRIDE 2 MG TABLET PO SCH (11:56)
[2018-04-28 16:24] VITALS: BP 119/69
[2018-04-28] MEDS: DONEPEZIL HCL 5 MG TABLET. PO SCH (20:12)
[2018-04-28] MEDS: CITALOPRAM 20 MG TABLET. PO SCH (20:12)
[2018-04-28] MEDS: CETIRIZINE HCL 10 MG TABLET PO SCH (20:12)
[2018-04-28] MEDS: risperiDONE 0.25 MG TABLET. PO SCH (20:12)
[2018-04-28] MEDS: SENNOSIDES 8.6 MG TABLET PO SCH (20:13)
[2018-04-28] MEDS: ATORVASTATIN CALCIUM 10 MG TABLET. PO SCH (20:13)
[2018-04-28] MEDS: LINAGLIPTIN 5 MG TABLET PO SCH (20:13)
[2018-04-28] MEDS: POTASSIUM CHLORIDE 10 MEQ TABLET.ER. PO SCH (20:13)
--- NOTE | 2018-04-28 22:41 | PDOC ---
Exam Note: Dileep Note: Please also refer to the separate dictated note~for this date of service dictated separately.~Patient seen individually. Discussed the patient with Nursing staff reviewed the chart.~Reviewed interim history and current functioning. Reviewed vital signs,~Labs/ Radiology~and current medications noted below. Continue current treatment with the changes noted in the dictated addendum note Assessment: Vital Signs: Vital Signs Date Time Temp Pulse Resp B/P (MAP) Pulse Ox O2 Delivery O2 Flow Rate FiO2 04/28/18 16:24 97.4 85 18 119/69 (86) 96 04/26/18 16:16 Room Air I&O Intake and Output 04/28/18 07:01 Intake Total 565 ml Output Total 525 ml Balance 40 ml Intake Oral 565 ml Output Urine Total 525 ml Labs: Laboratory Tests Test 04/28/18 07:18 04/28/18 07:41 04/28/18 12:23 04/28/18 16:51 White Blood Count 3.8 x10^3/uL (4.0-11.0) L Red Blood Count 3.62 x10^6/uL (3.50-5.40) Hemoglobin 9.8 g/dL (12.0-15.5) L Hematocrit 29.1 % (36.0-47.0) L Mean Corpuscular Volume 81 fL (79-100) Mean Corpuscular Hemoglobin 27 pg (25-35) Mean Corpuscular Hemoglobin Concent 34 g/dL (31-37) Red Cell Distribution Width 16.1 % (11.5-14.5) H Platelet Count 223 x10^3/uL (140-400) Neutrophils (%) (Auto) 61 % (31-73) Lymphocytes (%) (Auto) 25 % (24-48) Monocytes (%) (Auto) 9 % (0-9) Eosinophils (%) (Auto) 4 % (0-3) H Basophils (%) (Auto) 1 % (0-3) Neutrophils # (Auto) 2.3 x10^3uL (1.8-7.7) Lymphocytes # (Auto) 1.0 x10^3/uL (1.0-4.8) Monocytes # (Auto) 0.3 x10^3/uL (0.0-1.1) Eosinophils # (Auto) 0.1 x10^3/uL (0.0-0.7) Basophils # (Auto) 0.0 x10^3/uL (0.0-0.2) Sodium Level 129 mmol/L (136-145) L Potassium Level 4.5 mmol/L (3.5-5.1) Chloride Level 95 mmol/L (98-107) L Carbon Dioxide Level 24 mmol/L (21-32) Anion Gap 10 (6-14) Blood Urea Nitrogen 14 mg/dL (7-20) Creatinine 1.1 mg/dL (0.6-1.0) H Estimated GFR (Cockcroft-Gault) 48.2 BUN/Creatinine Ratio 13 (6-20) Glucose Level 140 mg/dL (70-99) H Calcium Level 8.8 mg/dL (8.5-10.1) Total Bilirubin 0.7 mg/dL (0.2-1.0) Aspartate Amino Transferase (AST) 13 U/L (15-37) L Alanine Aminotransferase (ALT) 14 U/L (14-59) Alkaline Phosphatase 103 U/L (46-116) Total Protein 6.8 g/dL (6.4-8.2) Albumin 3.2 g/dL (3.4-5.0) L Albumin/Globulin Ratio 0.9 (1.0-1.7) L Glucose (Fingerstick) 141 mg/dL (70-99) H 155 mg/dL (70-99) H 104 mg/dL (70-99) H Test 04/28/18 19:16 Glucose (Fingerstick) 101 mg/dL (70-99) H Current Medications: Meds: Current Medications Acetaminophen (Tylenol) 650 mg PRN Q6HRS PRN PO PAIN / TEMP; Start 04/25/18 at 17:45 Multi-Ingredient Ointment (Analgesic [place]) 1 anne PRN QID PRN TP MUSCLE PAIN; Start 04/25/18 at 17:45 Al Hydroxide/Mg Hydroxide (Mylanta Plus Xs) 15 ml PRN AFTMEALHC PRN PO DYSPEPSIA; Start 04/25/18 at 17:45 Magnesium Hydroxide (Milk Of Magnesia) 2,400 mg PRN QHS PRN PO CONSTIPATION; Start 04/25/18 at 17:45 Carbidopa/Levodopa (Sinemet 25/100) 1 tab TID PO Last administered on 20:13; Start 04/25/18 at 21:00 Donepezil HCl (Aricept) 5 mg QHS PO Last administered on 04/28/18 20:12; Start 04/25/18 at 21:00 Citalopram Hydrobromide (CeleXA) 20 mg QHS PO Last administered on 04/28/18 20 :12; Start 04/25/18 at 21:00 Lorazepam (Ativan) 0.25 mg PRN Q6HRS PRN PO ANXIETY / AGITATION Last administered on 04/26/18 18:16; Start 04/25/18 at 19:30 Memantine (Namenda) 10 mg BID PO Last administered on 04/28/18 20:13; Start at 21:00 Risperidone (RisperDAL) 0.25 mg QHS PO Last administered on 04/28/18 20:12; Start 04/25/18 at 21:00 Furosemide (Lasix) 20 mg DAILY PO Last administered on 04/28/18 11:53; Start 04/26/18 at 09:00; Stop 04/28/18 at 15:56; Status DC Losartan Potassium (Cozaar) 100 mg DAILY PO Last administered on 04/28/18 11: 54; Start 04/26/18 at 09:00 Oxybutynin Chloride (Ditropan) 5 mg DAILYBFRSUP PO ; Start 04/26/18 at 17:00; Stop 04/26/18 at 17:00; Status DC Atorvastatin Calcium (Lipitor) 10 mg QHS PO Last administered on 04/28/18 20: 13; Start 04/25/18 at 21:00 Calcium Carbonate/ Glycine (Tums) 1,000 mg PRN BID PRN PO DYSPEPSIA; Start at 19:45 Cholestyramine Resin (Questran Light) 4 gm BID PO Last administered on 20:14; Start 04/25/18 at 21:00 Acetaminophen/ Hydrocodone Bitart (Lortab 5/325) 1 tab PRN Q6HRS PRN PO PAIN Last administered on 04/26/18 18:16; Start 04/25/18 at 19:45 Cetirizine HCl (ZyrTEC) 10 mg QHS PO Last administered on 04/28/18 20:12; Start 04/25/18 at 21:00 Levothyroxine Sodium (Synthroid) 50 mcg DAILY06 PO Last administered on 06:28; Start 04/26/18 at 06:00 Lisinopril (Prinivil) 2.5 mg DAILY PO Last administered on 04/28/18 11:54; Start 04/26/18 at 09:00; Stop 04/28/18 at 15:56; Status DC Metformin HCl (Glucophage) 1,000 mg DAILYWBKFT PO ; Start 04/26/18 at 08:00; Stop 04/26/18 at 08:00; Status DC Pantoprazole Sodium (Protonix) 40 mg DAILY06 PO ; Start 04/26/18 at 06:00; Stop 04/26/18 at 06:00; Status DC Potassium Chloride (Klor-Con) 10 meq QHS PO Last administered on 04/28/18 20: 13; Start 04/25/18 at 21:00 Linagliptin (Tradjenta) 5 mg QHS PO Last administered on 04/28/18 20:13; Start 04/25/18 at 21:00 Sennosides (Senna) 8.6 mg QHS PO Last administered on 04/28/18 20:13; Start at 21:00 Sodium Chloride (Saline Mist Nasal) 1 anne QID NS Last administered on 20:23; Start 04/25/18 at 21:00 Metformin HCl (Glucophage) 1,000 mg BIDWMEALS PO Last administered on 17:19; Start 04/26/18 at 08:00 Pantoprazole Sodium (Protonix) 40 mg DAILYAC PO Last administered on 04/28/18 11:53; Start 04/26/18 at 07:30 Vitamin D (Vitamin D3) 50,000 unit WEEKLY PO Last administered on 04/26/18 17: 50; Start 04/26/18 at 16:15 Ferrous Sulfate (Feosol) 325 mg BID PO Last administered on 04/28/18 20:13; Start 04/26/18 at 21:00 Ascorbic Acid (Vitamin C) 500 mg BID PO Last administered on 04/28/18 20:13; Start 04/26/18 at 21:00 Magnesium Oxide (Magnesium Oxide) 400 mg BID PO Last administered on 04/28/18at 20:13; Start 04/26/18 at 21:00 Enoxaparin Sodium (Lovenox 40mg Syringe) 40 mg DAILY SQ Last administered on at 11:55; Start 04/26/18 at 21:00 Olanzapine (ZyPREXA ZYDIS) 2.5 mg PRN Q2HR PRN PO PSYCHOSIS; Start 04/26/18 at 18:45 Glimepiride (Amaryl) 2 mg DAILY PO Last administered on 04/28/18at 11:56; Start 04/28/18 at 09:00 Buspirone HCl (Buspar) 5 mg BIDWMEALS PO Last administered on 04/28/18at 17:19; Start 04/28/18 at 08:00 Nystatin (Nystop) 1 anne BID TP ; Start 04/29/18 at 09:00 Active Scripts Active Reported Xyzal (Levocetirizine Dihydrochloride) 5 Mg Tablet 5 Mg PO QHS Tums Ultra Strength (Calcium Carbonate) 1,177 Mg Tab.chew 1,177 Mg PO PRN BID PRN Senna (Sennosides) 8.6 Mg Tablet 8.6 Mg PO QHS Risperidone 0.5 Mg Tablet 0.25 Mg PO QHS Protonix (Pantoprazole Sodium) 40 Mg Tablet.dr 40 Mg PO DAILY06 Potassium Chloride 10 Meq Tablet.er 10 Meq PO QHS Oxybutynin Chloride 5 Mg Tablet 5 Mg PO DAILYBFRSUP Onglyza (Saxagliptin Hcl) 5 Mg Tablet 5 Mg PO QHS Metformin Hcl 1,000 Mg Tablet 1,000 Mg PO DAILYWBKFT Namenda (Memantine Hcl) 10 Mg Tablet 10 Mg PO BID Losartan Potassium (Losartan Potassium) 50 Mg Tablet 100 Mg PO DAILY Lorazepam 0.5 Mg Tablet 0.25 Mg PO PRN Q6HRS PRN Lisinopril 2.5 Mg Tablet 2.5 Mg PO DAILY Levothyroxine Sodium 50 Mcg Tablet 50 Mcg PO DAILY06 Furosemide 20 Mg Tablet 20 Mg PO DAILY Escitalopram Oxalate 10 Mg Tablet 10 Mg PO QHS Donepezil Hcl 5 Mg Tablet 5 Mg PO QHS [place] (Sodium Chloride) 44 Ml [place] 44 Ml NS QID Cholestyramine Resin (Cholestyramine) 5 Gm Powder 4 Gm PO BID Carbidopa-Levodopa 25-100 Tab (Carbidopa/Levodopa) 1 Each Tablet 1 Each PO TID Atorvastatin Calcium 10 Mg Tablet 10 Mg PO QHS [place] 5-325 Tablet (Hydrocodone Bit/Acetaminophen) 1 Each Tablet 1 Tab PO PRN Q6HRS PRN I have reviewed the current psychotropics carefully including drug interactions. Risk benefit ratio favors no change other than as noted in my dictated progress note. Diagnosis: Problems: (1) Anxiety disorder (2) Dementia in Alzheimer's disease with depression (3) Dementia in Alzheimer's disease with delusions (4) Dementia, vascular, with delusions (5) Dementia, vascular, with depression (6) Impulse control disorder (7) Major depressive disorder, recurrent episode KYE BOLIVAR MD Apr 28, 2018 22:41
[2018-04-29] MEDS: LEVOTHYROXINE 50 MCG TABLET PO SCH (05:51)
[2018-04-29 06:32] VITALS: BP 155/69
[2018-04-29] MEDS: MAGNESIUM OXIDE 400 MG TABLET PO SCH ×2 (09:27→20:06)
[2018-04-29] MEDS: ASCORBIC ACID 500 MG TABLET PO SCH ×2 (09:27→20:06)
[2018-04-29] MEDS: CHOLESTYRAMINE/ASPARTAME 4 GM PACKET PO SCH ×2 (09:27→20:05)
[2018-04-29] MEDS: metFORMIN 500 MG TABLET PO SCH ×2 (09:27→17:14)
[2018-04-29] MEDS: PANTOPRAZOLE 40 MG TABLET. PO SCH (09:28)
[2018-04-29] MEDS: busPIRone 5 MG TABLET. PO SCH ×2 (09:28→17:13)
[2018-04-29] MEDS: LOSARTAN 50 MG TABLET. PO SCH (09:28)
[2018-04-29] MEDS: NYSTATIN TOPICAL POWDER 15GM BOTTLE. TP SCH ×2 (09:29→20:07)
[2018-04-29] MEDS: CARBIDOPA/LEVODOPA 25/100MG TABLET PO SCH ×3 (09:29→20:06)
[2018-04-29] MEDS: ENOXAPARIN 40 MG/0.4 ML SYRINGE. SQ SCH (09:29)
[2018-04-29] MEDS: GLIMEPIRIDE 2 MG TABLET PO SCH (09:29)
[2018-04-29] MEDS: MEMANTINE 10 MG TABLET. PO SCH ×2 (09:29→20:06)
[2018-04-29] MEDS: FERROUS SULFATE 325 MG TABLET. PO SCH ×2 (09:29→20:06)
[2018-04-29] MEDS: SODIUM CHLORIDE 0.65% NASAL SPRAY 45ML BOTTLE. NS SCH ×4 (09:30→20:05)
[2018-04-29 16:11] VITALS: BP 150/64
[2018-04-29] MEDS: POTASSIUM CHLORIDE 10 MEQ TABLET.ER. PO SCH (20:05)
[2018-04-29] MEDS: DONEPEZIL HCL 5 MG TABLET. PO SCH (20:05)
[2018-04-29] MEDS: SENNOSIDES 8.6 MG TABLET PO SCH (20:06)
[2018-04-29] MEDS: ATORVASTATIN CALCIUM 10 MG TABLET. PO SCH (20:06)
[2018-04-29] MEDS: CITALOPRAM 20 MG TABLET. PO SCH (20:06)
[2018-04-29] MEDS: risperiDONE 0.25 MG TABLET. PO SCH (20:06)
[2018-04-29] MEDS: LINAGLIPTIN 5 MG TABLET PO SCH (20:06)
[2018-04-29] MEDS: CETIRIZINE HCL 10 MG TABLET PO SCH (20:06)
--- NOTE | 2018-04-29 23:02 | PDOC ---
Exam Note: Dileep Note: Please also refer to the separate dictated note~for this date of service dictated separately.~Patient seen individually. Discussed the patient with Nursing staff reviewed the chart.~Reviewed interim history and current functioning. Reviewed vital signs,~Labs/ Radiology~and current medications noted below. Continue current treatment with the changes noted in the dictated addendum note Assessment: Vital Signs: Vital Signs Date Time Temp Pulse Resp B/P (MAP) Pulse Ox O2 Delivery O2 Flow Rate FiO2 04/29/18 16:11 97.8 76 18 150/64 (92) 97 Room Air I&O Intake and Output 04/29/18 07:01 Intake Total 725 ml Output Total 1075 ml Balance -350 ml Intake Oral 725 ml Output Urine Total 1075 ml # Bowel Movements 1 Labs: Laboratory Tests Test 04/29/18 07:24 04/29/18 11:34 04/29/18 17:15 04/29/18 19:21 Glucose (Fingerstick) 126 mg/dL (70-99) H 139 mg/dL (70-99) H 115 mg/dL (70-99) H 123 mg/dL (70-99) H Current Medications: Meds: Current Medications Acetaminophen (Tylenol) 650 mg PRN Q6HRS PRN PO PAIN / TEMP; Start 04/25/18 at 17:45 Multi-Ingredient Ointment (Analgesic [place]) 1 anne PRN QID PRN TP MUSCLE PAIN; Start 04/25/18 at 17:45 Al Hydroxide/Mg Hydroxide (Mylanta Plus Xs) 15 ml PRN AFTMEALHC PRN PO DYSPEPSIA; Start 04/25/18 at 17:45 Magnesium Hydroxide (Milk Of Magnesia) 2,400 mg PRN QHS PRN PO CONSTIPATION; Start 04/25/18 at 17:45 Carbidopa/Levodopa (Sinemet 25/100) 1 tab TID PO Last administered on 04/29/18at 20:06; Start 04/25/18 at 21:00 Donepezil HCl (Aricept) 5 mg QHS PO Last administered on 04/29/18at 20:05; Start 04/25/18 at 21:00 Citalopram Hydrobromide (CeleXA) 20 mg QHS PO Last administered on 04/29/18at 20: 06; Start 04/25/18 at 21:00 Lorazepam (Ativan) 0.25 mg PRN Q6HRS PRN PO ANXIETY / AGITATION Last administered on 04/26/18 18:16; Start 04/25/18 at 19:30 Memantine (Namenda) 10 mg BID PO Last administered on 04/29/18 20:06; Start at 21:00 Risperidone (RisperDAL) 0.25 mg QHS PO Last administered on 04/29/18 20:06; Start 04/25/18 at 21:00 Furosemide (Lasix) 20 mg DAILY PO Last administered on 04/28/18 11:53; Start 04/26/18 at 09:00; Stop 04/28/18 at 15:56; Status DC Losartan Potassium (Cozaar) 100 mg DAILY PO Last administered on 04/29/18 09:28 ; Start 04/26/18 at 09:00 Oxybutynin Chloride (Ditropan) 5 mg DAILYBFRSUP PO ; Start 04/26/18 at 17:00; Stop 04/26/18 at 17:00; Status DC Atorvastatin Calcium (Lipitor) 10 mg QHS PO Last administered on 04/29/18 20:06 ; Start 04/25/18 at 21:00 Calcium Carbonate/ Glycine (Tums) 1,000 mg PRN BID PRN PO DYSPEPSIA; Start at 19:45 Cholestyramine Resin (Questran Light) 4 gm BID PO Last administered on 20:05; Start 04/25/18 at 21:00 Acetaminophen/ Hydrocodone Bitart (Lortab 5/325) 1 tab PRN Q6HRS PRN PO PAIN Last administered on 04/26/18 18:16; Start 04/25/18 at 19:45 Cetirizine HCl (ZyrTEC) 10 mg QHS PO Last administered on 04/29/18 20:06; Start 04/25/18 at 21:00 Levothyroxine Sodium (Synthroid) 50 mcg DAILY06 PO Last administered on 05:51; Start 04/26/18 at 06:00 Lisinopril (Prinivil) 2.5 mg DAILY PO Last administered on 04/28/18 11:54; Start 04/26/18 at 09:00; Stop 04/28/18 at 15:56; Status DC Metformin HCl (Glucophage) 1,000 mg DAILYWBKFT PO ; Start 04/26/18 at 08:00; Stop 04/26/18 at 08:00; Status DC Pantoprazole Sodium (Protonix) 40 mg DAILY06 PO ; Start 04/26/18 at 06:00; Stop 04/26/18 at 06:00; Status DC Potassium Chloride (Klor-Con) 10 meq QHS PO Last administered on 04/29/18 20:05 ; Start 04/25/18 at 21:00 Linagliptin (Tradjenta) 5 mg QHS PO Last administered on 04/29/18 20:06; Start 04/25/18 at 21:00 Sennosides (Senna) 8.6 mg QHS PO Last administered on 04/29/18 20:06; Start at 21:00 Sodium Chloride (Saline Mist Nasal) 1 anne QID NS Last administered on 20:23; Start 04/25/18 at 21:00 Metformin HCl (Glucophage) 1,000 mg BIDWMEALS PO Last administered on 04/29/18 09:27; Start 04/26/18 at 08:00 Pantoprazole Sodium (Protonix) 40 mg DAILYAC PO Last administered on 04/29/18 09:28; Start 04/26/18 at 07:30 Vitamin D (Vitamin D3) 50,000 unit WEEKLY PO Last administered on 04/26/18at 17: 50; Start 04/26/18 at 16:15 Ferrous Sulfate (Feosol) 325 mg BID PO Last administered on 04/29/18 20:06; Start 04/26/18 at 21:00 Ascorbic Acid (Vitamin C) 500 mg BID PO Last administered on 04/29/18 20:06; Start 04/26/18 at 21:00 Magnesium Oxide (Magnesium Oxide) 400 mg BID PO Last administered on 04/29/18 20:06; Start 04/26/18 at 21:00 Enoxaparin Sodium (Lovenox 40mg Syringe) 40 mg DAILY SQ Last administered on 09:29; Start 04/26/18 at 21:00 Olanzapine (ZyPREXA ZYDIS) 2.5 mg PRN Q2HR PRN PO PSYCHOSIS; Start 04/26/18 at 18:45 Glimepiride (Amaryl) 2 mg DAILY PO Last administered on 04/29/18at 09:29; Start 04/28/18 at 09:00 Buspirone HCl (Buspar) 5 mg BIDWMEALS PO Last administered on 04/29/18at 09:28; Start 04/28/18 at 08:00; Stop 04/30/18 at 21:00 Nystatin (Nystop) 1 anne BID TP Last administered on 04/29/18at 20:07; Start at 09:00 Buspirone HCl (Buspar) 10 mg BIDWMEALS PO ; Start 04/30/18 at 08:00 Active Scripts Active Reported Xyzal (Levocetirizine Dihydrochloride) 5 Mg Tablet 5 Mg PO QHS Tums Ultra Strength (Calcium Carbonate) 1,177 Mg Tab.chew 1,177 Mg PO PRN BID PRN Senna (Sennosides) 8.6 Mg Tablet 8.6 Mg PO QHS Risperidone 0.5 Mg Tablet 0.25 Mg PO QHS Protonix (Pantoprazole Sodium) 40 Mg Tablet.dr 40 Mg PO DAILY06 Potassium Chloride 10 Meq Tablet.er 10 Meq PO QHS Oxybutynin Chloride 5 Mg Tablet 5 Mg PO DAILYBFRSUP Onglyza (Saxagliptin Hcl) 5 Mg Tablet 5 Mg PO QHS Metformin Hcl 1,000 Mg Tablet 1,000 Mg PO DAILYWBKFT Namenda (Memantine Hcl) 10 Mg Tablet 10 Mg PO BID Losartan Potassium (Losartan Potassium) 50 Mg Tablet 100 Mg PO DAILY Lorazepam 0.5 Mg Tablet 0.25 Mg PO PRN Q6HRS PRN Lisinopril 2.5 Mg Tablet 2.5 Mg PO DAILY Levothyroxine Sodium 50 Mcg Tablet 50 Mcg PO DAILY06 Furosemide 20 Mg Tablet 20 Mg PO DAILY Escitalopram Oxalate 10 Mg Tablet 10 Mg PO QHS Donepezil Hcl 5 Mg Tablet 5 Mg PO QHS [place] (Sodium Chloride) 44 Ml [place] 44 Ml NS QID Cholestyramine Resin (Cholestyramine) 5 Gm Powder 4 Gm PO BID Carbidopa-Levodopa 25-100 Tab (Carbidopa/Levodopa) 1 Each Tablet 1 Each PO TID Atorvastatin Calcium 10 Mg Tablet 10 Mg PO QHS [place] 5-325 Tablet (Hydrocodone Bit/Acetaminophen) 1 Each Tablet 1 Tab PO PRN Q6HRS PRN I have reviewed the current psychotropics carefully including drug interactions. Risk benefit ratio favors no change other than as noted in my dictated progress note. Diagnosis: Problems: (1) Anxiety disorder (2) Dementia in Alzheimer's disease with depression (3) Dementia in Alzheimer's disease with delusions (4) Dementia, vascular, with delusions (5) Dementia, vascular, with depression (6) Impulse control disorder (7) Major depressive disorder, recurrent episode KYE BOLIVAR MD Apr 29, 2018 23:02
--- NOTE | 2018-04-29 23:06 | PN ---
DATE: 04/27/2018 PSYCHIATRIC PROGRESS NOTE This late entry 04/27/2018 covers elements, not covered in my initial note. SUBJECTIVE: I met with the patient in the evening. The patient slept 7-3/4 hours previous night. She has been tearful at night, wants to be discharged, anxious, restless. She did attend groups on 04/27/2018, was cooperative, compliant briefly. REVIEW OF SYSTEMS: Ambulation impaired, in wheelchair. No CV, , pulmonary, eye system symptoms on review. MENTAL STATUS EXAM: Oriented to herself and situation. Speech coherent, has some latency. Abstraction fair, computation impaired, language function intact, attention span short. Mood and affect somewhat withdrawn, anxious, labile. LABORATORY DATA: Reviewed. IMPRESSION: Major neurocognitive disorder, Alzheimer, vascular with delusion, depression, major depressive disorder with psychotic features; anxiety disorder, unspecified. PLAN: Continue psychotropics from initial note, start BuSpar 5 mg twice a day. Adjust as indicated. MAN Justin BOLIVAR MD DR: MARGARITA/tiffanie JOB#: [id number] / [id number]
--- NOTE | 2018-04-29 23:15 | PN ---
DATE: 04/28/2018 PSYCHIATRIC PROGRESS NOTE This late entry 04/28/2018 covers elements not covered in my initial note. SUBJECTIVE: I met with the patient in the evening and staffed treatment team meeting with the entire team in the morning. The patient slept 7-3/4 hours previous night. Appetite is fair. She has been cursing at times, compliant with medications, irritable previous night, but not refusing meds which is an improvement. Urine has reflex to culture. REVIEW OF SYSTEMS: Ambulation impaired, in wheelchair. No CV, , pulmonary, eye system symptoms on review. She is fixated on discharge plans, addressed this with her at great length. MENTAL STATUS EXAM: Oriented to herself and situation. Speech coherent, has some latency. Abstraction fair, computation impaired, language function intact, attention span short. Mood and affect somewhat labile, anxious. LABORATORY DATA: Reviewed. IMPRESSION: Unchanged from initial note. PLAN: No change from initial note. Treat the UTI once culture returns. KYE BOLIVAR MD DR: MARGARITA/tiffanie JOB#: [id number] / [id number]
[2018-04-30] MEDS: LEVOTHYROXINE 50 MCG TABLET PO SCH (06:10)
[2018-04-30 06:25] VITALS: BP 133/72
[2018-04-30] MEDS: MAGNESIUM OXIDE 400 MG TABLET PO SCH ×2 (07:46→19:17)
[2018-04-30] MEDS: busPIRone 5 MG TABLET. PO SCH ×4 (07:46→16:47)
[2018-04-30] MEDS: metFORMIN 500 MG TABLET PO SCH ×2 (07:46→16:47)
[2018-04-30] MEDS: GLIMEPIRIDE 2 MG TABLET PO SCH (07:46)
[2018-04-30] MEDS: CARBIDOPA/LEVODOPA 25/100MG TABLET PO SCH ×3 (07:46→19:17)
[2018-04-30] MEDS: FERROUS SULFATE 325 MG TABLET. PO SCH ×2 (07:46→19:18)
[2018-04-30] MEDS: ASCORBIC ACID 500 MG TABLET PO SCH ×2 (07:46→19:17)
[2018-04-30] MEDS: MEMANTINE 10 MG TABLET. PO SCH ×2 (07:47→19:17)
[2018-04-30] MEDS: LOSARTAN 50 MG TABLET. PO SCH (07:47)
[2018-04-30] MEDS: ENOXAPARIN 40 MG/0.4 ML SYRINGE. SQ SCH (07:52)
[2018-04-30] MEDS: PANTOPRAZOLE 40 MG TABLET. PO SCH (07:54)
[2018-04-30] MEDS: SODIUM CHLORIDE 0.65% NASAL SPRAY 45ML BOTTLE. NS SCH ×5 (07:54→19:18)
[2018-04-30] MEDS: CHOLESTYRAMINE/ASPARTAME 4 GM PACKET PO SCH ×2 (07:55→19:17)
[2018-04-30 09:50] LABS: CALCIUM 9.6 mg/dL (8.5-10.1); GFR 53.8; POTASSIUM 3.7 mmol/L (3.5-5.1)
[2018-04-30] MEDS: NYSTATIN TOPICAL POWDER 15GM BOTTLE. TP SCH ×2 (09:51→19:18)
[2018-04-30] MEDS: AZITHROMYCIN 250 MG TABLET. PO SCH (14:41)
[2018-04-30 16:14] VITALS: BP 141/63
[2018-04-30] MEDS: SENNOSIDES 8.6 MG TABLET PO SCH (19:17)
[2018-04-30] MEDS: ATORVASTATIN CALCIUM 10 MG TABLET. PO SCH (19:17)
[2018-04-30] MEDS: LINAGLIPTIN 5 MG TABLET PO SCH (19:17)
[2018-04-30] MEDS: risperiDONE 0.25 MG TABLET. PO SCH (19:17)
[2018-04-30] MEDS: POTASSIUM CHLORIDE 10 MEQ TABLET.ER. PO SCH (19:18)
[2018-04-30] MEDS: CETIRIZINE HCL 10 MG TABLET PO SCH (19:18)
[2018-04-30] MEDS: DONEPEZIL HCL 5 MG TABLET. PO SCH (19:18)
--- NOTE | 2018-04-30 22:29 | PDOC ---
Exam Note: Dileep Note: Please also refer to the separate dictated note~for this date of service dictated separately.~Patient seen individually. Discussed the patient with Nursing staff reviewed the chart.~Reviewed interim history and current functioning. Reviewed vital signs,~Labs/ Radiology~and current medications noted below. Continue current treatment with the changes noted in the dictated addendum note Assessment: Vital Signs: Vital Signs Date Time Temp Pulse Resp B/P (MAP) Pulse Ox O2 Delivery O2 Flow Rate FiO2 04/30/18 16:14 97.4 18 18 141/63 (89) 96 Room Air I&O Intake and Output 04/30/18 07:01 Intake Total 240 ml Output Total 300 ml Balance -60 ml Intake Oral 240 ml Output Urine Total 300 ml Labs: Laboratory Tests Test 04/30/18 07:02 04/30/18 08:58 04/30/18 11:50 04/30/18 16:53 Glucose (Fingerstick) 120 mg/dL (70-99) H 143 mg/dL (70-99) H 109 mg/dL (70-99) H Sodium Level 128 mmol/L (136-145) L Potassium Level 3.7 mmol/L (3.5-5.1) Chloride Level 92 mmol/L (98-107) L Carbon Dioxide Level 23 mmol/L (21-32) Anion Gap 13 (6-14) Blood Urea Nitrogen 8 mg/dL (7-20) Creatinine 1.0 mg/dL (0.6-1.0) Estimated GFR (Cockcroft-Gault) 53.8 Glucose Level 182 mg/dL (70-99) H Calcium Level 9.6 mg/dL (8.5-10.1) Test 04/30/18 19:14 Glucose (Fingerstick) 140 mg/dL (70-99) H Current Medications: Meds: Current Medications Acetaminophen (Tylenol) 650 mg PRN Q6HRS PRN PO PAIN / TEMP; Start 04/25/18 at 17:45 Multi-Ingredient Ointment (Analgesic [place]) 1 anne PRN QID PRN TP MUSCLE PAIN; Start 04/25/18 at 17:45 Al Hydroxide/Mg Hydroxide (Mylanta Plus Xs) 15 ml PRN AFTMEALHC PRN PO DYSPEPSIA; Start 04/25/18 at 17:45 Magnesium Hydroxide (Milk Of Magnesia) 2,400 mg PRN QHS PRN PO CONSTIPATION; Start 04/25/18 at 17:45 Carbidopa/Levodopa (Sinemet 25/100) 1 tab TID PO Last administered on 04/30/18 19:17; Start 04/25/18 at 21:00 Donepezil HCl (Aricept) 5 mg QHS PO Last administered on 04/30/18 19:18; Start 04/25/18 at 21:00 Citalopram Hydrobromide (CeleXA) 20 mg QHS PO Last administered on 04/29/18 20: 06; Start 04/25/18 at 21:00; Stop 04/30/18 at 20:32; Status DC Lorazepam (Ativan) 0.25 mg PRN Q6HRS PRN PO ANXIETY / AGITATION Last administered on 04/26/18 18:16; Start 04/25/18 at 19:30 Memantine (Namenda) 10 mg BID PO Last administered on 04/30/18 19:17; Start at 21:00 Risperidone (RisperDAL) 0.25 mg QHS PO Last administered on 04/30/18 19:17; Start 04/25/18 at 21:00 Furosemide (Lasix) 20 mg DAILY PO Last administered on 04/28/18 11:53; Start 04/26/18 at 09:00; Stop 04/28/18 at 15:56; Status DC Losartan Potassium (Cozaar) 100 mg DAILY PO Last administered on 04/30/18 07:47 ; Start 04/26/18 at 09:00 Oxybutynin Chloride (Ditropan) 5 mg DAILYBFRSUP PO ; Start 04/26/18 at 17:00; Stop 04/26/18 at 17:00; Status DC Atorvastatin Calcium (Lipitor) 10 mg QHS PO Last administered on 04/30/18 19:17 ; Start 04/25/18 at 21:00 Calcium Carbonate/ Glycine (Tums) 1,000 mg PRN BID PRN PO DYSPEPSIA; Start at 19:45 Cholestyramine Resin (Questran Light) 4 gm BID PO Last administered on 19:17; Start 04/25/18 at 21:00 Acetaminophen/ Hydrocodone Bitart (Lortab 5/325) 1 tab PRN Q6HRS PRN PO PAIN Last administered on 04/26/18 18:16; Start 04/25/18 at 19:45 Cetirizine HCl (ZyrTEC) 10 mg QHS PO Last administered on 04/30/18 19:18; Start 04/25/18 at 21:00 Levothyroxine Sodium (Synthroid) 50 mcg DAILY06 PO Last administered on 06:10; Start 04/26/18 at 06:00 Lisinopril (Prinivil) 2.5 mg DAILY PO Last administered on 04/28/18 11:54; Start 04/26/18 at 09:00; Stop 04/28/18 at 15:56; Status DC Metformin HCl (Glucophage) 1,000 mg DAILYWBKFT PO ; Start 04/26/18 at 08:00; Stop 04/26/18 at 08:00; Status DC Pantoprazole Sodium (Protonix) 40 mg DAILY06 PO ; Start 04/26/18 at 06:00; Stop 04/26/18 at 06:00; Status DC Potassium Chloride (Klor-Con) 10 meq QHS PO Last administered on 04/30/18 19:18 ; Start 04/25/18 at 21:00 Linagliptin (Tradjenta) 5 mg QHS PO Last administered on 04/30/18 19:17; Start 04/25/18 at 21:00 Sennosides (Senna) 8.6 mg QHS PO Last administered on 04/30/18 19:17; Start at 21:00 Sodium Chloride (Saline Mist Nasal) 1 anen QID NS Last administered on 20:23; Start 04/25/18 at 21:00 Metformin HCl (Glucophage) 1,000 mg BIDWMEALS PO Last administered on 04/30/18 16:47; Start 04/26/18 at 08:00 Pantoprazole Sodium (Protonix) 40 mg DAILYAC PO Last administered on 04/30/18 07:54; Start 04/26/18 at 07:30 Vitamin D (Vitamin D3) 50,000 unit WEEKLY PO Last administered on 04/26/18 17: 50; Start 04/26/18 at 16:15 Ferrous Sulfate (Feosol) 325 mg BID PO Last administered on 04/30/18 19:18; Start 04/26/18 at 21:00 Ascorbic Acid (Vitamin C) 500 mg BID PO Last administered on 04/30/18 19:17; Start 04/26/18 at 21:00 Magnesium Oxide (Magnesium Oxide) 400 mg BID PO Last administered on 04/30/18 19:17; Start 04/26/18 at 21:00 Enoxaparin Sodium (Lovenox 40mg Syringe) 40 mg DAILY SQ Last administered on 07:52; Start 04/26/18 at 21:00 Olanzapine (ZyPREXA ZYDIS) 2.5 mg PRN Q2HR PRN PO PSYCHOSIS; Start 04/26/18 at 18:45 Glimepiride (Amaryl) 2 mg DAILY PO Last administered on 04/30/18 07:46; Start 04/28/18 at 09:00 Buspirone HCl (Buspar) 5 mg BIDWMEALS PO Last administered on 04/30/18at 16:47; Start 04/28/18 at 08:00; Stop 04/30/18 at 21:00; Status DC Nystatin (Nystop) 1 anne BID TP Last administered on 04/30/18 19:18; Start at 09:00 Buspirone HCl (Buspar) 10 mg BIDWMEALS PO ; Start 04/30/18 at 08:00 Azithromycin (Zithromax) 500 mg DAILY PO Last administered on 04/30/18at 14:41; Start 04/30/18 at 14:00 Active Scripts Active Reported Xyzal (Levocetirizine Dihydrochloride) 5 Mg Tablet 5 Mg PO QHS Tums Ultra Strength (Calcium Carbonate) 1,177 Mg Tab.chew 1,177 Mg PO PRN BID PRN Senna (Sennosides) 8.6 Mg Tablet 8.6 Mg PO QHS Risperidone 0.5 Mg Tablet 0.25 Mg PO QHS Protonix (Pantoprazole Sodium) 40 Mg Tablet.dr 40 Mg PO DAILY06 Potassium Chloride 10 Meq Tablet.er 10 Meq PO QHS Oxybutynin Chloride 5 Mg Tablet 5 Mg PO DAILYBFRSUP Onglyza (Saxagliptin Hcl) 5 Mg Tablet 5 Mg PO QHS Metformin Hcl 1,000 Mg Tablet 1,000 Mg PO DAILYWBKFT Namenda (Memantine Hcl) 10 Mg Tablet 10 Mg PO BID Losartan Potassium (Losartan Potassium) 50 Mg Tablet 100 Mg PO DAILY Lorazepam 0.5 Mg Tablet 0.25 Mg PO PRN Q6HRS PRN Lisinopril 2.5 Mg Tablet 2.5 Mg PO DAILY Levothyroxine Sodium 50 Mcg Tablet 50 Mcg PO DAILY06 Furosemide 20 Mg Tablet 20 Mg PO DAILY Escitalopram Oxalate 10 Mg Tablet 10 Mg PO QHS Donepezil Hcl 5 Mg Tablet 5 Mg PO QHS [place] (Sodium Chloride) 44 Ml [place] 44 Ml NS QID Cholestyramine Resin (Cholestyramine) 5 Gm Powder 4 Gm PO BID Carbidopa-Levodopa 25-100 Tab (Carbidopa/Levodopa) 1 Each Tablet 1 Each PO TID Atorvastatin Calcium 10 Mg Tablet 10 Mg PO QHS [place] 5-325 Tablet (Hydrocodone Bit/Acetaminophen) 1 Each Tablet 1 Tab PO PRN Q6HRS PRN I have reviewed the current psychotropics carefully including drug interactions. Risk benefit ratio favors no change other than as noted in my dictated progress note. Diagnosis: Problems: (1) Anxiety disorder (2) Dementia in Alzheimer's disease with depression (3) Dementia in Alzheimer's disease with delusions (4) Dementia, vascular, with delusions (5) Dementia, vascular, with depression (6) Impulse control disorder (7) Major depressive disorder, recurrent episode KYE BOLIVAR MD Apr 30, 2018 22:29
[2018-05-01] MEDS: LEVOTHYROXINE 50 MCG TABLET PO SCH (06:00)
[2018-05-01 06:10] VITALS: BP 181/81
[2018-05-01] MEDS ORDERED: ONDANSETRON ODT 4 MG TAB.RAPDIS PO PRN (06:30)
[2018-05-01] MEDS: PANTOPRAZOLE 40 MG TABLET. PO SCH (07:30)
--- NOTE | 2018-05-01 07:48 | RAD ---
Abdominal radiograph 05/01/2018 INDICATION: Abdominal pain with nausea and vomiting. COMPARISON: None available. TECHNIQUE: Single supine view of the abdomen is provided. FINDINGS: There are no dilated loops of small and large bowel. Supine technique limits evaluation for free intraperitoneal air. Lung bases are not included on this examination. Phleboliths are identified within the pelvis. No suspicious osseous abnormality is identified. IMPRESSION: Nonobstructive bowel gas pattern. Moderate amount of stool is noted throughout the colon. Electronically signed by: Nilda Vegas MD (05/01/2018 7:44 AM) [facility]
[2018-05-01] MEDS: busPIRone 5 MG TABLET. PO SCH (08:00)
[2018-05-01] MEDS: metFORMIN 500 MG TABLET PO SCH (08:00)
[2018-05-01 08:23] LABS: BASO # 0.1 x10^3/uL (0.0-0.2); BASO % 1 % (0-3); EOS # 0.1 x10^3/uL (0.0-0.7); EOS % 1 % (0-3); HEMATOCRIT 31.1 % (36.0-47.0); HEMOGLOBIN 10.3 g/dL (12.0-15.5); LYMPH # 0.5 x10^3/uL (1.0-4.8); LYMPH % 8 % (24-48); MEAN CORPUSCULAR HEMOGLOBIN 27 pg (25-35); MEAN CORPUSCULAR HGB CONC 33 g/dL (31-37); MEAN CORPUSCULAR VOLUME 81 fL (79-100); MONO # 0.5 x10^3/uL (0.0-1.1); MONO % 8 % (0-9); NEUT # 4.7 x10^3uL (1.8-7.7); NEUT % 82 % (31-73); PLATELET COUNT 243 x10^3/uL (140-400); RED BLOOD COUNT 3.86 x10^6/uL (3.50-5.40); RED CELL DISTRIBUTION WIDTH 16.4 % (11.5-14.5); WHITE BLOOD COUNT 5.8 x10^3/uL (4.0-11.0)
[2018-05-01 08:39] LABS: ALBUMIN 3.4 g/dL (3.4-5.0); ALBUMIN/GLOBULIN RATIO 0.9 (1.0-1.7); CALCIUM 9.1 mg/dL (8.5-10.1); CREATININE 0.9 mg/dL (0.6-1.0); GFR 60.7; POTASSIUM 4.6 mmol/L (3.5-5.1); TOTAL BILIRUBIN 0.6 mg/dL (0.2-1.0); TOTAL PROTEIN 7.1 g/dL (6.4-8.2)
[2018-05-01 09:00] VITALS: BP 138/40
[2018-05-01] MEDS: GLIMEPIRIDE 2 MG TABLET PO SCH (09:00)
[2018-05-01] MEDS: CHOLESTYRAMINE/ASPARTAME 4 GM PACKET PO SCH (09:00)
[2018-05-01] MEDS: FERROUS SULFATE 325 MG TABLET. PO SCH (09:00)
[2018-05-01] MEDS: LOSARTAN 50 MG TABLET. PO SCH (09:00)
[2018-05-01] MEDS: MEMANTINE 10 MG TABLET. PO SCH (09:00)
[2018-05-01] MEDS: AZITHROMYCIN 250 MG TABLET. PO SCH (09:00)
[2018-05-01] MEDS: MAGNESIUM OXIDE 400 MG TABLET PO SCH (09:00)
[2018-05-01] MEDS: CARBIDOPA/LEVODOPA 25/100MG TABLET PO SCH (09:00)
[2018-05-01] MEDS: ENOXAPARIN 40 MG/0.4 ML SYRINGE. SQ SCH (09:00)
[2018-05-01] MEDS: NYSTATIN TOPICAL POWDER 15GM BOTTLE. TP SCH (09:00)
[2018-05-01] MEDS: SODIUM CHLORIDE 0.65% NASAL SPRAY 45ML BOTTLE. NS SCH ×2 (09:00→13:00)
[2018-05-01] MEDS: ASCORBIC ACID 500 MG TABLET PO SCH (09:00)
[2018-05-01] MEDS ORDERED: ASCO500T3 PO (13:19)
[2018-05-01] MEDS ORDERED: CETI10TA22 PO (13:19)
[2018-05-01] MEDS ORDERED: CHOL500021 PO (13:21)
[2018-05-01] MEDS ORDERED: ENOX40DI SQ (13:26)
[2018-05-01] MEDS ORDERED: FERR325T14 PO (13:27)
[2018-05-01] MEDS ORDERED: GLIM1TAB PO (13:28)
[2018-05-01] MEDS ORDERED: LINA5TAB4 PO (13:32)
[2018-05-01] MEDS ORDERED: NYST15PO9 TP (13:34)
[2018-05-01] MEDS ORDERED: ONDA4TAB7 PO (13:35)
[2018-05-01] MEDS ORDERED: OLAN5TAB5 PO (13:39)
[2018-05-01] MEDS ORDERED: BUSP10TA PO (13:41)
--- NOTE | 2018-05-01 23:09 | PDOC ---
Exam Note: Dileep Note: Please also refer to the separate dictated note~for this date of service dictated separately.~Patient seen individually. Discussed the patient with Nursing staff reviewed the chart.~Reviewed interim history and current functioning. Reviewed vital signs,~Labs/ Radiology~and current medications noted below. Continue current treatment with the changes noted in the dictated addendum note Assessment: Vital Signs: Vital Signs Date Time Temp Pulse Resp B/P (MAP) Pulse Ox O2 Delivery O2 Flow Rate FiO2 05/01/18 09:00 98.5 74 18 138/40 (72) 96 Room Air I&O Intake and Output 05/01/18 07:01 Intake Total 965 ml Output Total 400 ml Balance 565 ml Intake Oral 965 ml Output Urine Total 400 ml Labs: Laboratory Tests Test 05/01/18 07:30 05/01/18 07:52 05/01/18 11:43 Glucose (Fingerstick) 135 mg/dL (70-99) H 119 mg/dL (70-99) H White Blood Count 5.8 x10^3/uL (4.0-11.0) # Red Blood Count 3.86 x10^6/uL (3.50-5.40) Hemoglobin 10.3 g/dL (12.0-15.5) L Hematocrit 31.1 % (36.0-47.0) L Mean Corpuscular Volume 81 fL (79-100) Mean Corpuscular Hemoglobin 27 pg (25-35) Mean Corpuscular Hemoglobin Concent 33 g/dL (31-37) Red Cell Distribution Width 16.4 % (11.5-14.5) H Platelet Count 243 x10^3/uL (140-400) Neutrophils (%) (Auto) 82 % (31-73) H Lymphocytes (%) (Auto) 8 % (24-48) L Monocytes (%) (Auto) 8 % (0-9) Eosinophils (%) (Auto) 1 % (0-3) Basophils (%) (Auto) 1 % (0-3) Neutrophils # (Auto) 4.7 x10^3uL (1.8-7.7) Lymphocytes # (Auto) 0.5 x10^3/uL (1.0-4.8) L Monocytes # (Auto) 0.5 x10^3/uL (0.0-1.1) Eosinophils # (Auto) 0.1 x10^3/uL (0.0-0.7) Basophils # (Auto) 0.1 x10^3/uL (0.0-0.2) Sodium Level 127 mmol/L (136-145) L Potassium Level 4.6 mmol/L (3.5-5.1) Chloride Level 92 mmol/L (98-107) L Carbon Dioxide Level 23 mmol/L (21-32) Anion Gap 12 (6-14) Blood Urea Nitrogen 7 mg/dL (7-20) Creatinine 0.9 mg/dL (0.6-1.0) Estimated GFR (Cockcroft-Gault) 60.7 BUN/Creatinine Ratio 8 (6-20) Glucose Level 121 mg/dL (70-99) H Calcium Level 9.1 mg/dL (8.5-10.1) Total Bilirubin 0.6 mg/dL (0.2-1.0) Aspartate Amino Transferase (AST) 14 U/L (15-37) L Alanine Aminotransferase (ALT) 14 U/L (14-59) Alkaline Phosphatase 103 U/L (46-116) Lactate Dehydrogenase 299 U/L (81-234) H Total Protein 7.1 g/dL (6.4-8.2) Albumin 3.4 g/dL (3.4-5.0) Albumin/Globulin Ratio 0.9 (1.0-1.7) L Current Medications: Meds: Current Medications Acetaminophen (Tylenol) 650 mg PRN Q6HRS PRN PO PAIN / TEMP; Start 04/25/18 at 17:45; Stop 05/01/18 at 14:16; Status DC Multi-Ingredient Ointment (Analgesic [place]) 1 felice PRN QID PRN TP MUSCLE PAIN; Start 04/25/18 at 17:45; Stop 05/01/18 at 14:16; Status DC Al Hydroxide/Mg Hydroxide (Mylanta Plus Xs) 15 ml PRN AFTMEALHC PRN PO DYSPEPSIA; Start 04/25/18 at 17:45; Stop 05/01/18 at 14:16; Status DC Magnesium Hydroxide (Milk Of Magnesia) 2,400 mg PRN QHS PRN PO CONSTIPATION; Start 04/25/18 at 17:45; Stop 05/01/18 at 14:16; Status DC Carbidopa/Levodopa (Sinemet 25/100) 1 tab TID PO Last administered on 04/30/18 19:17; Start 04/25/18 at 21:00; Stop 05/01/18 at 14:16; Status DC Donepezil HCl (Aricept) 5 mg QHS PO Last administered on 04/30/18 19:18; Start 04/25/18 at 21:00; Stop 05/01/18 at 14:16; Status DC Citalopram Hydrobromide (CeleXA) 20 mg QHS PO Last administered on 04/29/18 20: 06; Start 04/25/18 at 21:00; Stop 04/30/18 at 20:32; Status DC Lorazepam (Ativan) 0.25 mg PRN Q6HRS PRN PO ANXIETY / AGITATION Last administered on 04/26/18at 18:16; Start 04/25/18 at 19:30; Stop 05/01/18 at 14:16 ; Status DC Memantine (Namenda) 10 mg BID PO Last administered on 04/30/18 19:17; Start at 21:00; Stop 05/01/18 at 14:16; Status DC Risperidone (RisperDAL) 0.25 mg QHS PO Last administered on 04/30/18 19:17; Start 04/25/18 at 21:00; Stop 05/01/18 at 14:16; Status DC Furosemide (Lasix) 20 mg DAILY PO Last administered on 04/28/18at 11:53; Start 04/26/18 at 09:00; Stop 04/28/18 at 15:56; Status DC Losartan Potassium (Cozaar) 100 mg DAILY PO Last administered on 04/30/18 07:47 ; Start 04/26/18 at 09:00; Stop 05/01/18 at 14:16; Status DC Oxybutynin Chloride (Ditropan) 5 mg DAILYBFRSUP PO ; Start 04/26/18 at 17:00; Stop 04/26/18 at 17:00; Status DC Atorvastatin Calcium (Lipitor) 10 mg QHS PO Last administered on 04/30/18 19:17 ; Start 04/25/18 at 21:00; Stop 05/01/18 at 14:16; Status DC Calcium Carbonate/ Glycine (Tums) 1,000 mg PRN BID PRN PO DYSPEPSIA; Start at 19:45; Stop 05/01/18 at 14:16; Status DC Cholestyramine Resin (Questran Light) 4 gm BID PO Last administered on 19:17; Start 04/25/18 at 21:00; Stop 05/01/18 at 14:16; Status DC Acetaminophen/ Hydrocodone Bitart (Lortab 5/325) 1 tab PRN Q6HRS PRN PO PAIN Last administered on 04/26/18at 18:16; Start 04/25/18 at 19:45; Stop 05/01/18 at 14:16; Status DC Cetirizine HCl (ZyrTEC) 10 mg QHS PO Last administered on 04/30/18 19:18; Start 04/25/18 at 21:00; Stop 05/01/18 at 14:16; Status DC Levothyroxine Sodium (Synthroid) 50 mcg DAILY06 PO Last administered on 06:10; Start 04/26/18 at 06:00; Stop 05/01/18 at 14:16; Status DC Lisinopril (Prinivil) 2.5 mg DAILY PO Last administered on 04/28/18at 11:54; Start 04/26/18 at 09:00; Stop 04/28/18 at 15:56; Status DC Metformin HCl (Glucophage) 1,000 mg DAILYWBKFT PO ; Start 04/26/18 at 08:00; Stop 04/26/18 at 08:00; Status DC Pantoprazole Sodium (Protonix) 40 mg DAILY06 PO ; Start 04/26/18 at 06:00; Stop 04/26/18 at 06:00; Status DC Potassium Chloride (Klor-Con) 10 meq QHS PO Last administered on 04/30/18 19:18 ; Start 04/25/18 at 21:00; Stop 05/01/18 at 14:16; Status DC Linagliptin (Tradjenta) 5 mg QHS PO Last administered on 04/30/18 19:17; Start 04/25/18 at 21:00; Stop 05/01/18 at 14:16; Status DC Sennosides (Senna) 8.6 mg QHS PO Last administered on 04/30/18 19:17; Start at 21:00; Stop 05/01/18 at 14:16; Status DC Sodium Chloride (Saline Mist Nasal) 1 felice QID NS Last administered on 20:23; Start 04/25/18 at 21:00; Stop 05/01/18 at 14:16; Status DC Metformin HCl (Glucophage) 1,000 mg BIDWMEALS PO Last administered on 04/30/18 16:47; Start 04/26/18 at 08:00; Stop 05/01/18 at 14:16; Status DC Pantoprazole Sodium (Protonix) 40 mg DAILYAC PO Last administered on 04/30/18 07:54; Start 04/26/18 at 07:30; Stop 05/01/18 at 14:16; Status DC Vitamin D (Vitamin D3) 50,000 unit WEEKLY PO Last administered on 04/26/18 17: 50; Start 04/26/18 at 16:15; Stop 05/01/18 at 14:16; Status DC Ferrous Sulfate (Feosol) 325 mg BID PO Last administered on 04/30/18 19:18; Start 04/26/18 at 21:00; Stop 05/01/18 at 14:16; Status DC Ascorbic Acid (Vitamin C) 500 mg BID PO Last administered on 04/30/18 19:17; Start 04/26/18 at 21:00; Stop 05/01/18 at 14:16; Status DC Magnesium Oxide (Magnesium Oxide) 400 mg BID PO Last administered on 04/30/18 19:17; Start 04/26/18 at 21:00; Stop 05/01/18 at 14:16; Status DC Enoxaparin Sodium (Lovenox 40mg Syringe) 40 mg DAILY SQ Last administered on 07:52; Start 04/26/18 at 21:00; Stop 05/01/18 at 14:16; Status DC Olanzapine (ZyPREXA ZYDIS) 2.5 mg PRN Q2HR PRN PO PSYCHOSIS; Start 04/26/18 at 18:45; Stop 05/01/18 at 14:16; Status DC Glimepiride (Amaryl) 2 mg DAILY PO Last administered on 04/30/18at 07:46; Start 04/28/18 at 09:00; Stop 05/01/18 at 14:16; Status DC Buspirone HCl (Buspar) 5 mg BIDWMEALS PO Last administered on 04/30/18at 16:47; Start 04/28/18 at 08:00; Stop 04/30/18 at 21:00; Status DC Nystatin (Nystop) 1 felice BID TP Last administered on 04/30/18at 19:18; Start at 09:00; Stop 05/01/18 at 14:16; Status DC Buspirone HCl (Buspar) 10 mg BIDWMEALS PO ; Start 04/30/18 at 08:00; Stop at 14:16; Status DC Azithromycin (Zithromax) 500 mg DAILY PO Last administered on 04/30/18at 14:41; Start 04/30/18 at 14:00; Stop 05/01/18 at 14:16; Status DC Ondansetron HCl (Zofran Odt) 4 mg PRN Q8HRS PRN PO NAUSEA/VOMITING Last administered on 05/01/18at 06:30; Start 05/01/18 at 06:30; Stop 05/01/18 at 14:16; Status DC Active Scripts Active Reported Buspirone Hcl 10 Mg Tablet 1 Tab PO BIDWMEALS Zyprexa Zydis (Olanzapine) 5 Mg Tab.rapdis 2.5 Mg PO PRN Q2HR PRN Zofran (Ondansetron Hcl) 4 Mg Tablet 1 Tab PO Q8HRS Nystatin 15 Gm Powder 1 Felice TP BID Tradjenta (Linagliptin) 5 Mg Tablet 1 Tab PO HS Amaryl (Glimepiride) 1 Mg Tablet 2 Mg PO DAILY Ferrous Sulfate 325 Mg Tablet 1 Tab PO BID Lovenox (Enoxaparin Sodium) 40 Mg/0.4 Ml Disp.syrin 0.4 Ml SQ DAILY D3-50 (Cholecalciferol (Vitamin D3)) 50,000 Unit Capsule 1 Cap PO WEEKLY Zyrtec (Cetirizine Hcl) 10 Mg Tablet 1 Tab PO HS Ascorbic Acid 500 Mg Tablet 500 Mg PO BID Tums Ultra Strength (Calcium Carbonate) 1,177 Mg Tab.chew 1,177 Mg PO PRN BID PRN Senna (Sennosides) 8.6 Mg Tablet 8.6 Mg PO QHS Risperidone 0.5 Mg Tablet 0.25 Mg PO QHS Protonix (Pantoprazole Sodium) 40 Mg Tablet.dr 40 Mg PO DAILY06 Potassium Chloride 10 Meq Tablet.er 10 Meq PO QHS Metformin Hcl 1,000 Mg Tablet 1,000 Mg PO BIDWMEALS Namenda (Memantine Hcl) 10 Mg Tablet 10 Mg PO BID Losartan Potassium (Losartan Potassium) 50 Mg Tablet 100 Mg PO DAILY Lorazepam 0.5 Mg Tablet 0.25 Mg PO PRN Q6HRS PRN Levothyroxine Sodium 50 Mcg Tablet 50 Mcg PO DAILY06 Donepezil Hcl 5 Mg Tablet 5 Mg PO QHS [place] (Sodium Chloride) 44 Ml [place] 44 Ml NS QID Cholestyramine Resin (Cholestyramine) 5 Gm Powder 4 Gm PO BID Carbidopa-Levodopa 25-100 Tab (Carbidopa/Levodopa) 1 Each Tablet 1 Each PO TID Atorvastatin Calcium 10 Mg Tablet 10 Mg PO QHS [place] 5-325 Tablet (Hydrocodone Bit/Acetaminophen) 1 Each Tablet 1 Tab PO PRN Q6HRS PRN I have reviewed the current psychotropics carefully including drug interactions. Risk benefit ratio favors no change other than as noted in my dictated progress note. Diagnosis: Problems: (1) Anxiety disorder (2) Dementia in Alzheimer's disease with depression (3) Dementia in Alzheimer's disease with delusions (4) Dementia, vascular, with delusions (5) Dementia, vascular, with depression (6) Impulse control disorder (7) Major depressive disorder, recurrent episode KYE BOLIVAR MD May 01, 2018 23:09
--- NOTE | 2018-05-01 23:31 | PN ---
DATE: 04/29/2018 PSYCHIATRIC PROGRESS NOTE This is a late entry 04/29/2018 covers elements not covered in my initial note. SUBJECTIVE: I met with the patient in the evening. The patient slept 5-1/2 hours previous night. She has been cooperative with physical therapy, did choke around breakfast time. Diet is being changed to dysphagia 2. Eats well. Will be completed. REVIEW OF SYSTEMS: Positive for impaired ambulation, difficulty swallowing at times. No CV, , eye, ENT system symptoms on review. MENTAL STATUS EXAM: Oriented to herself and situation. Speech coherent, abstraction fair, computation impaired, language function intact, attention span short. Mood and affect somewhat anxious, labile at times. LABORATORY DATA: Reviewed. IMPRESSION: Unchanged from initial note. PLAN: BuSpar is currently 5 mg twice a day after she had been on that for 3 days, we will increase it to 10 mg twice a day and Celexa 20 mg a day, maintain. Rest unchanged from initial note. MAN Justin BOLIVAR MD DR: MARGARITA/tiffanie JOB#: [id number] / [id number]
--- NOTE | 2018-05-02 00:58 | DS ---
DATE OF DISCHARGE: 05/01/2018 DISCHARGE SUMMARY AND PSYCHIATRIC PROGRESS NOTE This late entry date of service 05/01/2018 covers elements not covered in my initial note. HISTORY OF PRESENT ILLNESS: Briefly, the patient is a 77-year-old female referred to us from [facility] where she presented from [place], [place] after that she was refusing all her medications for the prior 4 days. She was agitated, combative, psychotic with mood lability, worsening confusion, was referred to the Emergency Room, medically stabilized and then referred to us for inpatient psychiatric stabilization because of her dangerous, unmanageable behaviors at the long term. SIGNIFICANT FINDINGS AND CLINICAL COURSE: Following admission, the patient was seen daily individually by myself from a psychiatric standpoint, medical followup with Dr. Anderson. She remains anxious, labile, somewhat forgetful, confused. Adjustments were made in her psychotropics. She seemed to be responding to a combination of Risperdal 0.25 mg at bedtime for significant psychotic symptoms, Aricept 5 mg a day, Celexa 20 mg a day, Ativan p.r.n., Namenda 10 mg b.i.d., Zyprexa p.r.n., BuSpar 5 mg twice a day with a plan to increase it to 10 mg twice a day. However, on 04/30/2017, she was hyponatremic and had a UTI. She was transferred to [facility] floor per Dr. Anderson for medical stabilization. Prior to discharge on 05/01/2018, I met with her individually. REVIEW OF SYSTEMS: Ambulation impaired in wheelchair. No CV, , pulmonary, eye system symptoms on review. MENTAL STATUS EXAM: Oriented to herself and situation. Speech coherent, has some latency, abstraction fair, computation impaired, language function intact. Short term memory is impaired. LABORATORY DATA: Reviewed. IMPRESSION: Major depressive disorder with psychotic features; major neurocognitive disorder, Alzheimer, vascular with delusion, depression, urinary tract infection, hyponatremia. Rest unchanged from admission, initial note. DISCHARGE MEDICATIONS: Please refer to [facility]AD. DISCHARGE INSTRUCTIONS: Psychiatric and medical followup on [facility] per Dr. Anderson. We may consider readmitting [facility] after she is medically stabilized in case it is clinically indicated. Otherwise, she may transition back to the long term. Time for discharge day management greater than 30 minutes. MAN Justin BOLIVAR MD DR: MARGARITA/tiffanie JOB#: [id number] / [id number]
--- NOTE | 2018-05-02 15:41 | DS ---
DATE OF DISCHARGE: 05/01/2018 This is a late entry 05/01/2018 covers elements not covered in my initial note. REASON FOR ADMISSION: Please refer to the admission history for details. Briefly, the patient is a 77-year-old female referred to us from [facility] where she presented from [place], [place]. Reportedly, she had been refusing her medications for the past 3-4 days. She was increasingly agitated, combative and unmanageable at the facility. She had failed outpatient psychiatric interventions. Behaviors were deemed dangerous as noted in my initial evaluation and then referred from the Emergency Room to us for psychiatric stabilization. SIGNIFICANT FINDINGS AND CLINICAL COURSE: Following admission, the patient was seen daily individually by myself from a psychiatric standpoint, medical followup with Dr. Anderson. She was noted to have short-term memory deficits appeared depressed, anxious, somewhat paranoid at times. Adjustments were made in her psychotropics and from a psychiatric standpoint, she seemed to be doing better on a combination of Aricept 5 mg a day, Celexa 20 mg a day, Ativan p.r.n., Namenda 10 b.i.d., Risperdal 0.25 mg at bedtime, BuSpar 10 mg twice a day. She did have a UTI and was treated on Zithromax then developed hyponatremia. We did discontinue the Celexa consequent to the hyponatremia and then on 05/01/2018 she was transferred to the medical/surgical floor by Dr. Anderson for further medical management. We will consider having her back on our unit if clinically indicated after she is medically stable. REVIEW OF SYSTEMS: Prior to discharge on 05/01/2018 ambulation impaired, in wheelchair. No CV, , pulmonary, eye system symptoms on review. MENTAL STATUS EXAM: Oriented to herself and situation. Speech has some latency, coherent. Abstraction fair, computation impaired, language function intact, attention span short. Mood and affect remain somewhat withdrawn, anxious at times. LABORATORY DATA: Reviewed. FINAL DIAGNOSES: Major depressive disorder with psychotic features; major neurocognitive disorder, early Alzheimer, vascular with delusion, depression, behavioral disturbance; anxiety disorder, unspecified; impulse control disorder, unspecified.; urinary tract infection: Hyponatremia. Rest unchanged from admission note. DISCHARGE MEDICATIONS: Please refer to [facility]. DISCHARGE INSTRUCTIONS: Psychiatric medical followup on [facility] per Dr. Anderson. MAN Justin BOLIVAR MD DR: MARGARITA/tiffanie JOB#: [id number] / [id number]
--- NOTE | 2018-05-03 03:14 | PN ---
DATE: 04/30/2018 PSYCHIATRIC PROGRESS NOTE This late entry of 04/30/2018, covers elements not covered in my initial note. SUBJECTIVE: I met with the patient in the evening. Overall, the patient has been pleasant, more interactive, and compliant with medications. She is on Zithromax for her UTIs and has some hyponatremia. Dr. Anderson is managing this. From a psychiatric standpoint, she has been more cooperative. REVIEW OF SYSTEMS: Ambulation impaired, in wheelchair. No CV, , pulmonary, eye system symptoms on review. MENTAL STATUS EXAM: Oriented to herself and situation. Speech has some latency, coherent. She is still obsessed about wanting to be discharged and I addressed this with her. Abstraction fair, computation impaired, language function intact, attention span short. Mood and affect somewhat anxious, labile at times. LABORATORY DATA: Reviewed. IMPRESSION: Unchanged from initial note. PLAN: No change from initial note. Defer medical management to Dr. Anderson. KYE BOLIVAR MD DR: MARGARITA/tiffanie JOB#: [id number] / [id number]
== END 2018-05-01 14:15 | disposition short-term general hospital (02) | DRG 57 ==
LOC: GEROPSY 17:17
PROVIDERS: ADMIT Psychiatry & Neurology Psychiatry; ATTEND Psychiatry & Neurology Psychiatry
DX: G30.9 Alzheimer's disease, unspecified (principal); E87.1 Hypo-osmolality and hyponatremia; F02.81 Dementia in other diseases classified elsewhere, unspecified severity, with behavioral disturbance; F33.3 Major depressive disorder, recurrent, severe with psychotic symptoms; N39.0 Urinary tract infection, site not specified; D50.9 Iron deficiency anemia, unspecified; E11.42 Type 2 diabetes mellitus with diabetic polyneuropathy; E78.5 Hyperlipidemia, unspecified; F01.50 Vascular dementia, unspecified severity, without behavioral disturbance, psychotic disturbance, mood disturbance, and anxiety; F41.9 Anxiety disorder, unspecified; F63.9 Impulse disorder, unspecified; I10 Essential (primary) hypertension; R13.10 Dysphagia, unspecified; Z79.899 Other long term (current) drug therapy; Z82.3 Family history of stroke; Z90.710 Acquired absence of both cervix and uterus
CPT/HCPCS: 36415; 70450; 74018; 80048; 80053; 80061; 81001; 82306; 82947; 83036; 83540; 83550; 83615; 83735; 85025; 86592; 87086; 87186; J0456; J1650; Q0162; 92610; 97110; 97116; 97530; 97535

== ENCOUNTER 2018-05-01 14:27 | Inpatient (IN) | payer MEDICARE, MEDICAID ==
[~2018-05-01] VITALS: Ht 157.5 cm; Wt 68.2 kg
[~2018-05-01 14:27] MED LIST: ASCO500T3 PO; ATOR10TA60 PO; BUSP10TA PO; CALC11776 PO; CARB1TAB22 PO; CETI10TA22 PO; CHOL500021 PO; CHOL5POW PO; DONE5TAB7 PO; ENOX40DI SQ; ESCI10TA2 PO; FERR325T14 PO; FURO20TA3 PO; GLIM1TAB PO; HYDR-3165 PO; LEVO50TA5 PO; LEVO5TAB29 PO; LINA5TAB4 PO; LISI2.5T PO; LORA0.5T PO; LOSA50TA86 PO; MEMA10TA PO; METF10007 PO; NYST15PO9 TP; OLAN5TAB5 PO; ONDA4TAB7 PO; OXYB5TAB7 PO; PANT40TA3 PO; POTA10TA10 PO; RISP0.5T3 PO; SAXA5TAB PO; SENN-80 PO; SODI44SP NS
[2018-05-01 14:44] VITALS: BP 133/67
[2018-05-01] MEDS ORDERED: LORazepam 0.5 MG TABLET PO PRN (14:45)
[2018-05-01] MEDS ORDERED: CALCIUM CARBONATE 500 MG TAB.CHEW PO PRN (16:30)
[2018-05-01] MEDS: VANCOMYCIN PER PHARMACY MC PRN (17:24)
[2018-05-01] MEDS: SODIUM CHLORIDE 0.65% NASAL SPRAY 45ML BOTTLE. NS SCH ×2 (17:45→20:13)
[2018-05-01] MEDS: busPIRone 10 MG TABLET. PO SCH (17:46)
[2018-05-01] MEDS: metFORMIN 500 MG TABLET PO SCH (17:46)
[2018-05-01] MEDS: IV NORMAL SALINE 1,000ML 1,000 ML IV SCH (17:56)
[2018-05-01] MEDS ORDERED: VANCOMYCIN 1.75 GM in IV NORMAL SALINE 500ML 500 ML IV ONE (18:00)
[2018-05-01 19:40] VITALS: BP 158/60
[2018-05-01] MEDS: CETIRIZINE HCL 10 MG TABLET PO SCH (20:14)
[2018-05-01] MEDS: CARBIDOPA/LEVODOPA 25/100MG TABLET PO SCH (20:14)
[2018-05-01] MEDS: SENNOSIDES 8.6 MG TABLET PO SCH (20:14)
[2018-05-01] MEDS: POTASSIUM CHLORIDE 10 MEQ TABLET.ER. PO SCH (20:14)
[2018-05-01] MEDS: LACTOBACILLUS RHAMNOSUS GG 1 CAPSULE. PO SCH (20:14)
[2018-05-01] MEDS: DONEPEZIL HCL 5 MG TABLET. PO SCH (20:14)
[2018-05-01] MEDS: MEMANTINE 10 MG TABLET. PO SCH (20:15)
[2018-05-01] MEDS: ASCORBIC ACID 500 MG TABLET PO SCH (20:15)
[2018-05-01] MEDS: ATORVASTATIN CALCIUM 10 MG TABLET. PO SCH (20:15)
[2018-05-01] MEDS: CHOLESTYRAMINE/ASPARTAME 4 GM PACKET PO SCH (20:15)
[2018-05-01] MEDS: FERROUS SULFATE 325 MG TABLET. PO SCH (20:15)
[2018-05-01] MEDS: LINAGLIPTIN 5 MG TABLET PO SCH (20:15)
[2018-05-01] MEDS: risperiDONE 0.25 MG TABLET. PO SCH (20:15)
[2018-05-01] MEDS: NYSTATIN TOPICAL POWDER 15GM BOTTLE. TP SCH (20:15)
[2018-05-01] MEDS: ONDANSETRON ODT 4 MG TAB.RAPDIS PO SCH (21:27)
[2018-05-01] MEDS ORDERED: ONDANSETRON PF 4 MG/2 ML VIAL. IV PRN (22:00)
[2018-05-01 23:10] VITALS: BP 159/70
[2018-05-02 05:32] VITALS: BP 133/69
[2018-05-02] MEDS: LEVOTHYROXINE 50 MCG TABLET PO SCH (06:11)
[2018-05-02] MEDS: ONDANSETRON ODT 4 MG TAB.RAPDIS PO SCH ×3 (06:11→21:16)
[2018-05-02 06:30] LABS: BASO % 1 % (0-3); EOS # 0.1 x10^3/uL (0.0-0.7); EOS % 3 % (0-3); HEMATOCRIT 27.2 % (36.0-47.0); HEMOGLOBIN 9.2 g/dL (12.0-15.5); LYMPH # 0.7 x10^3/uL (1.0-4.8); LYMPH % 18 % (24-48); MEAN CORPUSCULAR HEMOGLOBIN 27 pg (25-35); MEAN CORPUSCULAR HGB CONC 34 g/dL (31-37); MEAN CORPUSCULAR VOLUME 80 fL (79-100); MONO # 0.5 x10^3/uL (0.0-1.1); MONO % 13 % (0-9); NEUT # 2.6 x10^3uL (1.8-7.7); NEUT % 66 % (31-73); PLATELET COUNT 220 x10^3/uL (140-400); RED BLOOD COUNT 3.39 x10^6/uL (3.50-5.40); RED CELL DISTRIBUTION WIDTH 16.8 % (11.5-14.5); WHITE BLOOD COUNT 3.9 x10^3/uL (4.0-11.0)
[2018-05-02 06:47] LABS: ALBUMIN/GLOBULIN RATIO 0.9 (1.0-1.7); CALCIUM 8.8 mg/dL (8.5-10.1); CREATININE 0.9 mg/dL (0.6-1.0); GFR 60.7; TOTAL BILIRUBIN 0.5 mg/dL (0.2-1.0); TOTAL PROTEIN 6.4 g/dL (6.4-8.2)
[2018-05-02] MEDS: NYSTATIN TOPICAL POWDER 15GM BOTTLE. TP SCH ×2 (09:00→21:17)
[2018-05-02] MEDS: GLIMEPIRIDE 2 MG TABLET PO SCH (09:56)
[2018-05-02] MEDS: ASCORBIC ACID 500 MG TABLET PO SCH ×2 (09:56→21:15)
[2018-05-02] MEDS: LOSARTAN 50 MG TABLET. PO SCH (09:56)
[2018-05-02] MEDS: PANTOPRAZOLE 40 MG TABLET. PO SCH (09:57)
[2018-05-02] MEDS: MEMANTINE 10 MG TABLET. PO SCH ×2 (09:57→21:15)
[2018-05-02] MEDS: FERROUS SULFATE 325 MG TABLET. PO SCH ×2 (09:57→21:16)
[2018-05-02] MEDS: metFORMIN 500 MG TABLET PO SCH ×2 (09:58→18:35)
[2018-05-02] MEDS: busPIRone 10 MG TABLET. PO SCH ×2 (09:58→18:35)
[2018-05-02] MEDS: LACTOBACILLUS RHAMNOSUS GG 1 CAPSULE. PO SCH ×2 (09:58→21:15)
[2018-05-02] MEDS: SODIUM CHLORIDE 0.65% NASAL SPRAY 45ML BOTTLE. NS SCH ×4 (09:59→21:28)
[2018-05-02] MEDS: CHOLESTYRAMINE/ASPARTAME 4 GM PACKET PO SCH ×2 (09:59→21:15)
[2018-05-02] MEDS: ENOXAPARIN 40 MG/0.4 ML SYRINGE. SQ SCH (10:00)
[2018-05-02] MEDS: CARBIDOPA/LEVODOPA 25/100MG TABLET PO SCH ×3 (10:05→21:16)
[2018-05-02] MEDS: HYDROcodone/APAP 5/325MG 1 TAB TABLET PO PRN ×2 (10:05→15:08)
[2018-05-02] MEDS: IV NORMAL SALINE 1,000ML 1,000 ML IV SCH ×2 (10:09→21:14)
--- NOTE | 2018-05-02 10:29 | RAD ---
Indication:SOA, COUGH TECHNIQUE:Portable AP chest X-ray COMPARISON:None FINDINGS: Heart is normal in size. Mild prominence of bronchial markings without focal consolidation. No pneumothorax or pleural effusion. Visualized bony thorax is within normal limits. IMPRESSION: Mild prominence of bronchovascular markings may be secondary to bronchitis.. Electronically signed by: Abelino Lobo DO (05/02/2018 10:24 AM) [id number]
--- NOTE | 2018-05-02 10:31 | HP ---
ADMIT DATE: 05/01/2018 HISTORY OF PRESENT ILLNESS: The patient is a 77-year-old female patient, whom I have seen yesterday at [facility]. Her sodium continued to trend downwards progressively from 130 to 127 despite discontinuing her Celexa and her urine culture initially showed growth of Streptococcus species, eventually turned out to be Enterococcus faecalis, greater than 100,000 colony forming units per milliliter that is sensitive to nitrofurantoin, penicillin and vancomycin. Unfortunately, she is allergic to penicillin and her estimated GFR was less than 60. Nitrofurantoin will not be effective and therefore, a decision was made to transfer her to [address] [place] [address] to treat her with IV vancomycin as well as start her on IV fluid and to check her thyroid function as well as morning cortisol to rule out other possible causes of hyponatremia, although I have already discontinued her Celexa. The patient herself did not offer any complaint. PAST MEDICAL HISTORY: Significant for type 2 diabetes, diabetic neuropathy, hypertension, hyperlipidemia, frequent falls and chronic anemia. PAST PSYCHIATRIC HISTORY: Significant for Alzheimer's dementia with behavioral disturbances; anxiety and depression. PAST SURGICAL HISTORY: Significant for tonsillectomy, adenoidectomy under the age of 12 in 1946. 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 Did have vaginal hysterectomy in 1989 for cyst removed from the left breast. She has also had cystoscopy done on 09/20/2013. FAMILY HISTORY: Positive for stroke in her sister and brother. SOCIAL HISTORY: She apparently resides at [facility] at [place], [place]. She does not smoke, drink alcohol or use recreational drugs. REVIEW OF SYSTEMS: The patient stated that she does have a problem with urinary retention for years but denied any other complaint. PHYSICAL EXAMINATION: GENERAL: When I examined her, she looked well and was clearly in no apparent respiratory distress. No pallor, jaundice, cyanosis or thyromegaly. No jugular venous distention. No limb edema. VITAL SIGNS: Her heart rate was 74, blood pressure was 138/40, temperature was 98.5, respiratory rate was 18 and oxygen saturation was 96% on room air. HEAD, EYES, EARS, NOSE, and THROAT: Showed normocephalic, atraumatic. NECK: Supple. HEART: Showed normal first and second heart sounds with no gallop, rub or murmur. CHEST: Clear to auscultation. No crepitation or rhonchi. ABDOMEN: Distended, soft, nontender. No guarding or rigidity. No organomegaly. Hernial orifice intact. Bowel sounds normal. NEUROLOGIC: She was awake, alert, responding at times appropriately. All cranial nerves intact. EXTREMITIES: She moves extremities without difficulty, although she is mostly bedbound, chair bound. LABORATORY DATA: Her lab work as of yesterday showed a white cell count of 5800, hemoglobin 10, hematocrit 31, MCV 81 and platelet count 243,000. Her chemistry showed a serum sodium of 127, potassium 4.6, chloride 92, bicarbonate 23, anion gap of 12, BUN 7, creatinine 0.9, estimated GFR was 60 mL per minute, her glucose was 121, calcium was 9.1. Total bilirubin, AST, ALT, alkaline phosphatase were normal. Her LDH was 299. Total protein was 7.1, albumin was 3.4. ASSESSMENT AND PLAN: The patient was admitted to [address] [place] [address] with diagnosis of worsening hyponatremia and urinary tract ____, vancomycin sensitive Enterococcus faecalis, sensitive to vancomycin and penicillin. Unfortunately, she is allergic to penicillin. She has multiple other medical problems including: A. Hypertension. B. Type 2 diabetes. C. Diabetic peripheral neuropathy. D. Hyperlipidemia. E. Chronic anemia. AURELIA JONES MD DR: CHELSEY/tiffanie JOB#: [id number] / [id number]
[2018-05-02 11:00] VITALS: BP 133/53
--- NOTE | 2018-05-02 12:44 | PN ---
DATE: 05/02/2018 SUBJECTIVE: The patient is resting slightly propped up in bed, in no apparent distress. She is sleepy, but arousable. On questioning her, she denied any complaint. Nursing staff did not voice any concerns that she had an uneventful night. PHYSICAL EXAMINATION: GENERAL: When I examined her, she looked pale, no jaundice, cyanosis, or thyromegaly. No jugular venous distension. No limb edema. VITAL SIGNS: Her heart rate was 72, blood pressure 133/69, temperature was 98.3, respiratory rate was 20, and oxygen saturation was 93%. HEAD, EYES, EARS, NOSE AND THROAT: Showed normocephalic, atraumatic. NECK: Supple. HEART: Showed normal first and second heart sounds. No gallop, rub or murmur. CHEST: Clear to auscultation. No crepitation or rhonchi. ABDOMEN: Distended, soft, nontender. No guarding or rigidity. No organomegaly. All hernial orifices are intact. Bowel sounds normal. NEUROLOGIC: She is sleepy, but arousable. All cranial nerves intact. She moves extremities without difficulty, though she is mostly bedbound, chair bound. LABORATORY DATA: Her lab work this morning showed a white cell count 3900, hemoglobin 9, hematocrit 27, MCV 80 and platelet count 220,000. Her chemistry showed her sodium is up to 130, potassium 4, chloride 97, bicarbonate 23, anion gap of 10, BUN 7, creatinine 0.9, estimated GFR was 60 mL per minute. Her glucose was 99. Calcium was 8.8. Total bilirubin, AST, ALT, alkaline phosphatase were normal. Total protein was 6.4, albumin 3. ASSESSMENT: Hyponatremia, improving slowly. Her sodium has risen from 127 to 130. Vancomycin-sensitive Enterococcus faecalis for which he is now on IV vancomycin as per pharmacy recommendation, adjustment of the dose, type 2 diabetes, well controlled hypertension, well controlled. Hyperlipidemia, on atorvastatin. Hypothyroidism for which she is on Synthroid. PLAN: My plan is to continue with all this medication and we will monitor her labs daily and once her sodium normalized as well as her GFR improved, perhaps where we can use nitrofurantoin, she can be discharged back to [facility] on oral nitrofurantoin. AURELIA JONES MD DR: CHELSEY/tiffanie JOB#: [id number] / [id number]
[2018-05-02 15:00] VITALS: BP 149/72
[2018-05-02] MEDS: VANCOMYCIN 1 GM in IV NORMAL SALINE 250ML 250 ML IV SCH (18:34)
--- NOTE | 2018-05-02 18:34 | PDOC ---
Exam Note: Dileep Note: Please also refer to the separate dictated note~for this date of service dictated separately.~Patient seen individually. Discussed the patient with Nursing staff reviewed the chart.~Reviewed interim history and current functioning. Reviewed vital signs,~Labs/ Radiology~and current medications noted below. Continue current treatment with the changes noted in the dictated addendum note Assessment: Vital Signs: Vital Signs Date Time Temp Pulse Resp B/P (MAP) Pulse Ox O2 Delivery O2 Flow Rate FiO2 05/02/18 16:15 95 Room Air 05/02/18 15:00 98.4 71 18 149/72 (97) I&O Intake and Output 05/02/18 07:01 Intake Total 1567 ml Output Total 1050 ml Balance 517 ml Intake Oral 720 ml IV Total 847 ml Output Urine Total 1050 ml # Bowel Movements 2 Labs: Laboratory Tests Test 05/01/18 21:26 05/02/18 05:50 05/02/18 07:49 05/02/18 11:57 Glucose (Fingerstick) 92 mg/dL (70-99) 100 mg/dL (70-99) H 101 mg/dL (70-99) H White Blood Count 3.9 x10^3/uL (4.0-11.0) L Red Blood Count 3.39 x10^6/uL (3.50-5.40) L Hemoglobin 9.2 g/dL (12.0-15.5) L Hematocrit 27.2 % (36.0-47.0) L Mean Corpuscular Volume 80 fL (79-100) Mean Corpuscular Hemoglobin 27 pg (25-35) Mean Corpuscular Hemoglobin Concent 34 g/dL (31-37) Red Cell Distribution Width 16.8 % (11.5-14.5) H Platelet Count 220 x10^3/uL (140-400) Neutrophils (%) (Auto) 66 % (31-73) Lymphocytes (%) (Auto) 18 % (24-48) L Monocytes (%) (Auto) 13 % (0-9) H Eosinophils (%) (Auto) 3 % (0-3) Basophils (%) (Auto) 1 % (0-3) Neutrophils # (Auto) 2.6 x10^3uL (1.8-7.7) Lymphocytes # (Auto) 0.7 x10^3/uL (1.0-4.8) L Monocytes # (Auto) 0.5 x10^3/uL (0.0-1.1) Eosinophils # (Auto) 0.1 x10^3/uL (0.0-0.7) Basophils # (Auto) 0.0 x10^3/uL (0.0-0.2) Sodium Level 130 mmol/L (136-145) L Potassium Level 4.0 mmol/L (3.5-5.1) Chloride Level 97 mmol/L (98-107) L Carbon Dioxide Level 23 mmol/L (21-32) Anion Gap 10 (6-14) Blood Urea Nitrogen 7 mg/dL (7-20) Creatinine 0.9 mg/dL (0.6-1.0) Estimated GFR (Cockcroft-Gault) 60.7 BUN/Creatinine Ratio 8 (6-20) Glucose Level 99 mg/dL (70-99) Calcium Level 8.8 mg/dL (8.5-10.1) Total Bilirubin 0.5 mg/dL (0.2-1.0) Aspartate Amino Transferase (AST) 16 U/L (15-37) Alanine Aminotransferase (ALT) 13 U/L (14-59) L Alkaline Phosphatase 93 U/L (46-116) Total Protein 6.4 g/dL (6.4-8.2) Albumin 3.0 g/dL (3.4-5.0) L Albumin/Globulin Ratio 0.9 (1.0-1.7) L Thyroid Stimulating Hormone (TSH) 1.521 uIU/mL (0.358-3.740) Cortisol AM Sample 19.67 ug/dL (4.3-22.4) Test 05/02/18 17:12 Glucose (Fingerstick) 79 mg/dL (70-99) Current Medications: Meds: Current Medications Ascorbic Acid (Vitamin C) 500 mg BID PO Last administered on 05/02/18at 09:56; Start 05/01/18 at 21:00 Carbidopa/Levodopa (Sinemet 25/100) 1 tab TID PO Last administered on 05/02/18at 15:08; Start 05/01/18 at 21:00 Vitamin D (Vitamin D3) 50,000 unit WEEKLY PO ; Start 05/08/18 at 09:00 Ferrous Sulfate (Feosol) 325 mg BID PO Last administered on 05/02/18 09:57; Start 05/01/18 at 21:00 Losartan Potassium (Cozaar) 100 mg DAILY PO Last administered on 05/02/18 09:56 ; Start 05/02/18 at 09:00 Nystatin (Nystop) 1 felice BID TP Last administered on 05/02/18 09:00; Start at 21:00 Olanzapine (ZyPREXA ZYDIS) 2.5 mg PRN Q2HR PRN PO ANXIETY / AGITATION; Start at 14:45 Atorvastatin Calcium (Lipitor) 10 mg QHS PO Last administered on 05/01/18 20:15 ; Start 05/01/18 at 21:00 Buspirone HCl (Buspar) 10 mg BIDWMEALS PO Last administered on 05/02/18 09:58; Start 05/01/18 at 17:00 Calcium Carbonate/ Glycine (Tums) 750 mg PRN BID PRN PO INDIGESTION; Start 05/01 at 16:30 Cetirizine HCl (ZyrTEC) 10 mg QHS PO Last administered on 05/01/18 20:14; Start 05/01/18 at 21:00 Cholestyramine Resin (Questran Light) 4 gm BID PO Last administered on 09:59; Start 05/01/18 at 21:00 Donepezil HCl (Aricept) 5 mg QHS PO Last administered on 05/01/18 20:14; Start 05/01/18 at 21:00 Enoxaparin Sodium (Lovenox 40mg Syringe) 40 mg DAILY SQ Last administered on 10:00; Start 05/02/18 at 09:00 Glimepiride (Amaryl) 2 mg DAILY PO Last administered on 05/02/18 09:56; Start 05/02/18 at 09:00 Acetaminophen/ Hydrocodone Bitart (Lortab 5/325) 1 tab PRN Q6HRS PRN PO PAIN Last administered on 05/02/18 15:08; Start 05/01/18 at 16:00 Levothyroxine Sodium (Synthroid) 50 mcg DAILY06 PO Last administered on 06:11; Start 05/02/18 at 06:00 Linagliptin (Tradjenta) 5 mg QHS PO Last administered on 05/01/18 20:15; Start 05/01/18 at 21:00 Lorazepam (Ativan) 0.25 mg PRN Q6HRS PRN PO ANXIETY / AGITATION; Start 05/01/18 at 14:45 Memantine (Namenda) 10 mg BID PO Last administered on 05/02/18 09:57; Start 05/01/18 at 21:00 Metformin HCl (Glucophage) 1,000 mg BIDWMEALS PO Last administered on 05/02/18 09:58; Start 05/01/18 at 17:00 Ondansetron HCl (Zofran Odt) 4 mg Q8HRS PO Last administered on 05/02/18 15:08 ; Start 05/01/18 at 22:00 Pantoprazole Sodium (Protonix) 40 mg DAILYAC PO Last administered on 05/02/18 09:57; Start 05/02/18 at 07:30 Potassium Chloride (Klor-Con) 10 meq QHS PO Last administered on 05/01/18 20:14 ; Start 05/01/18 at 21:00 Risperidone (RisperDAL) 0.25 mg QHS PO Last administered on 05/01/18 20:15; Start 05/01/18 at 21:00 Sennosides (Senna) 8.6 mg QHS PO Last administered on 05/01/18 20:14; Start 05/01/18 at 21:00 Sodium Chloride (Saline Mist Nasal) 1 felice QID NS Last administered on 05/02/18 12:49; Start 05/01/18 at 17:00 Vancomycin HCl (Vanco Per Pharmacy) 1 each PRN DAILY PRN MC SEE COMMENTS Last administered on 05/01/18 17:24; Start 05/01/18 at 17:15 Sodium Chloride 1,000 ml @ 75 mls/hr [id number] IV Last administered on 05/02/18 10:09; Start 05/01/18 at 17:15 Vancomycin HCl 1.75 gm/Sodium Chloride 500 ml @ 250 mls/hr 1X ONCE IV Last administered on 05/01/18 17:56; Start 05/01/18 at 18:00; Stop 05/01/18 at 19:59; Status DC Vancomycin HCl 1 gm/Sodium Chloride 250 ml @ 250 mls/hr Q24H IV ; Start at 18:00 Vancomycin HCl (Vancomycin Trough Level) 1 each 1X ONCE MC ; Start 05/03/18 at 17:30; Stop 05/03/18 at 17:31 Lactobacillus Rhamnosus (Culturelle) 1 cap BID PO Last administered on at 09:58; Start 05/01/18 at 21:00 Ondansetron HCl (Zofran) 4 mg PRN Q4HRS PRN IV NAUSEA/VOMITING; Start 05/01/18 at 22:00 Active Scripts Active Reported Buspirone Hcl 10 Mg Tablet 1 Tab PO BIDWMEALS Zyprexa Zydis (Olanzapine) 5 Mg Tab.rapdis 2.5 Mg PO PRN Q2HR PRN Zofran (Ondansetron Hcl) 4 Mg Tablet 1 Tab PO Q8HRS Nystatin 15 Gm Powder 1 Felice TP BID Tradjenta (Linagliptin) 5 Mg Tablet 1 Tab PO HS Amaryl (Glimepiride) 1 Mg Tablet 2 Mg PO DAILY Ferrous Sulfate 325 Mg Tablet 1 Tab PO BID Lovenox (Enoxaparin Sodium) 40 Mg/0.4 Ml Disp.syrin 0.4 Ml SQ DAILY D3-50 (Cholecalciferol (Vitamin D3)) 50,000 Unit Capsule 1 Cap PO WEEKLY Zyrtec (Cetirizine Hcl) 10 Mg Tablet 1 Tab PO HS Ascorbic Acid 500 Mg Tablet 500 Mg PO BID Tums Ultra Strength (Calcium Carbonate) 1,177 Mg Tab.chew 1,177 Mg PO PRN BID PRN Senna (Sennosides) 8.6 Mg Tablet 8.6 Mg PO QHS Risperidone 0.5 Mg Tablet 0.25 Mg PO QHS Protonix (Pantoprazole Sodium) 40 Mg Tablet.dr 40 Mg PO DAILY06 Potassium Chloride 10 Meq Tablet.er 10 Meq PO QHS Metformin Hcl 1,000 Mg Tablet 1,000 Mg PO BIDWMEALS Namenda (Memantine Hcl) 10 Mg Tablet 10 Mg PO BID Losartan Potassium (Losartan Potassium) 50 Mg Tablet 100 Mg PO DAILY Lorazepam 0.5 Mg Tablet 0.25 Mg PO PRN Q6HRS PRN Levothyroxine Sodium 50 Mcg Tablet 50 Mcg PO DAILY06 Donepezil Hcl 5 Mg Tablet 5 Mg PO QHS [place] (Sodium Chloride) 44 Ml [place] 44 Ml NS QID Cholestyramine Resin (Cholestyramine) 5 Gm Powder 4 Gm PO BID Carbidopa-Levodopa 25-100 Tab (Carbidopa/Levodopa) 1 Each Tablet 1 Each PO TID Atorvastatin Calcium 10 Mg Tablet 10 Mg PO QHS [place] 5-325 Tablet (Hydrocodone Bit/Acetaminophen) 1 Each Tablet 1 Tab PO PRN Q6HRS PRN I have reviewed the current psychotropics carefully including drug interactions. Risk benefit ratio favors no change other than as noted in my dictated progress note. Diagnosis: Problems: (1) Major depressive disorder, recurrent episode (2) Impulse control disorder (3) Dementia, vascular, with depression (4) Dementia, vascular, with delusions (5) Dementia in Alzheimer's disease with delusions (6) Dementia in Alzheimer's disease with depression (7) Anxiety disorder KYE BOLIVAR MD May 02, 2018 18:34
[2018-05-02 19:13] VITALS: BP 155/72
[2018-05-02] MEDS: LINAGLIPTIN 5 MG TABLET PO SCH (21:15)
[2018-05-02] MEDS: ATORVASTATIN CALCIUM 10 MG TABLET. PO SCH (21:15)
[2018-05-02] MEDS: POTASSIUM CHLORIDE 10 MEQ TABLET.ER. PO SCH (21:15)
[2018-05-02] MEDS: SENNOSIDES 8.6 MG TABLET PO SCH (21:16)
[2018-05-02] MEDS: CETIRIZINE HCL 10 MG TABLET PO SCH (21:16)
[2018-05-02] MEDS: DONEPEZIL HCL 5 MG TABLET. PO SCH (21:16)
[2018-05-02] MEDS: risperiDONE 0.25 MG TABLET. PO SCH (21:16)
[2018-05-02 23:01] VITALS: BP 147/60
[2018-05-03] MEDS: LEVOTHYROXINE 50 MCG TABLET PO SCH (05:55)
[2018-05-03] MEDS: ONDANSETRON ODT 4 MG TAB.RAPDIS PO SCH ×3 (05:55→21:28)
[2018-05-03 06:06] VITALS: BP 145/65
[2018-05-03 06:34] LABS: CALCIUM 8.2 mg/dL (8.5-10.1); CREATININE 0.9 mg/dL (0.6-1.0); GFR 60.7; POTASSIUM 4.1 mmol/L (3.5-5.1)
[2018-05-03] MEDS: CHOLESTYRAMINE/ASPARTAME 4 GM PACKET PO SCH ×2 (08:25→21:26)
[2018-05-03] MEDS: HYDROcodone/APAP 5/325MG 1 TAB TABLET PO PRN ×2 (08:25→14:42)
[2018-05-03] MEDS: SODIUM CHLORIDE 0.65% NASAL SPRAY 45ML BOTTLE. NS SCH ×4 (08:25→21:27)
[2018-05-03] MEDS: LACTOBACILLUS RHAMNOSUS GG 1 CAPSULE. PO SCH ×2 (08:25→21:27)
[2018-05-03] MEDS: FERROUS SULFATE 325 MG TABLET. PO SCH ×2 (08:25→21:27)
[2018-05-03] MEDS: GLIMEPIRIDE 2 MG TABLET PO SCH (08:25)
[2018-05-03] MEDS: CARBIDOPA/LEVODOPA 25/100MG TABLET PO SCH ×3 (08:25→21:26)
[2018-05-03] MEDS: LOSARTAN 50 MG TABLET. PO SCH (08:26)
[2018-05-03] MEDS: ASCORBIC ACID 500 MG TABLET PO SCH ×2 (08:26→21:26)
[2018-05-03] MEDS: metFORMIN 500 MG TABLET PO SCH ×2 (08:27→17:03)
[2018-05-03] MEDS: PANTOPRAZOLE 40 MG TABLET. PO SCH (08:28)
[2018-05-03] MEDS: MEMANTINE 10 MG TABLET. PO SCH ×2 (08:28→21:26)
[2018-05-03] MEDS: busPIRone 10 MG TABLET. PO SCH ×2 (08:28→17:03)
[2018-05-03] MEDS: ENOXAPARIN 40 MG/0.4 ML SYRINGE. SQ SCH (08:28)
[2018-05-03] MEDS: NYSTATIN TOPICAL POWDER 15GM BOTTLE. TP SCH ×2 (08:29→21:27)
[2018-05-03 10:24] VITALS: BP 147/74
[2018-05-03 15:01] VITALS: BP 161/71
[2018-05-03] MEDS: VANCOMYCIN 1 GM in IV NORMAL SALINE 250ML 250 ML IV SCH (17:02)
[2018-05-03 18:09] LABS: VANC TR 9.4 mcg/mL (10.0-20.0)
--- NOTE | 2018-05-03 18:41 | PDOC ---
Exam Note: Dileep Note: Please also refer to the separate dictated note~for this date of service dictated separately.~Patient seen individually. Discussed the patient with Nursing staff reviewed the chart.~Reviewed interim history and current functioning. Reviewed vital signs,~Labs/ Radiology~and current medications noted below. Continue current treatment with the changes noted in the dictated addendum note Assessment: Vital Signs: Vital Signs Date Time Temp Pulse Resp B/P (MAP) Pulse Ox O2 Delivery O2 Flow Rate FiO2 05/03/18 15:42 97 Room Air 05/03/18 15:01 98.1 73 20 161/71 (101) I&O Intake and Output 05/03/18 07:01 Intake Total 780 ml Output Total 600 ml Balance 180 ml Intake Oral 780 ml Output Urine Total 600 ml Labs: Laboratory Tests Test 05/02/18 19:48 05/03/18 05:59 05/03/18 07:27 05/03/18 11:23 Glucose (Fingerstick) 87 mg/dL (70-99) 88 mg/dL (70-99) 115 mg/dL (70-99) H Sodium Level 126 mmol/L (136-145) L Potassium Level 4.1 mmol/L (3.5-5.1) Chloride Level 98 mmol/L (98-107) Carbon Dioxide Level 22 mmol/L (21-32) Anion Gap 6 (6-14) Blood Urea Nitrogen 6 mg/dL (7-20) L Creatinine 0.9 mg/dL (0.6-1.0) Estimated GFR (Cockcroft-Gault) 60.7 Glucose Level 88 mg/dL (70-99) Calcium Level 8.2 mg/dL (8.5-10.1) L Test 05/03/18 16:25 05/03/18 17:44 Glucose (Fingerstick) 112 mg/dL (70-99) H Vancomycin Level Trough 9.4 mcg/mL (10.0-20.0) L Vancomycin Last Dose Date 05/02/18 Vancomycin Last Dose Time 1800 Current Medications: Meds: Current Medications Ascorbic Acid (Vitamin C) 500 mg BID PO Last administered on 05/03/18at 08:26; Start 05/01/18 at 21:00 Carbidopa/Levodopa (Sinemet 25/100) 1 tab TID PO Last administered on 05/03/18at 14:42; Start 05/01/18 at 21:00 Vitamin D (Vitamin D3) 50,000 unit WEEKLY PO ; Start 05/08/18 at 09:00 Ferrous Sulfate (Feosol) 325 mg BID PO Last administered on 05/03/18 08:25; Start 05/01/18 at 21:00 Losartan Potassium (Cozaar) 100 mg DAILY PO Last administered on 05/03/18 08:26 ; Start 05/02/18 at 09:00 Nystatin (Nystop) 1 felice BID TP Last administered on 05/02/18 21:17; Start at 21:00 Olanzapine (ZyPREXA ZYDIS) 2.5 mg PRN Q2HR PRN PO ANXIETY / AGITATION; Start at 14:45 Atorvastatin Calcium (Lipitor) 10 mg QHS PO Last administered on 05/02/18 21:15 ; Start 05/01/18 at 21:00 Buspirone HCl (Buspar) 10 mg BIDWMEALS PO Last administered on 05/03/18 17:03; Start 05/01/18 at 17:00 Calcium Carbonate/ Glycine (Tums) 750 mg PRN BID PRN PO INDIGESTION; Start 05/01 at 16:30 Cetirizine HCl (ZyrTEC) 10 mg QHS PO Last administered on 05/02/18 21:16; Start 05/01/18 at 21:00 Cholestyramine Resin (Questran Light) 4 gm BID PO Last administered on 08:25; Start 05/01/18 at 21:00 Donepezil HCl (Aricept) 5 mg QHS PO Last administered on 05/02/18 21:16; Start 05/01/18 at 21:00 Enoxaparin Sodium (Lovenox 40mg Syringe) 40 mg DAILY SQ Last administered on 10:00; Start 05/02/18 at 09:00 Glimepiride (Amaryl) 2 mg DAILY PO Last administered on 05/03/18 08:25; Start 05/02/18 at 09:00 Acetaminophen/ Hydrocodone Bitart (Lortab 5/325) 1 tab PRN Q6HRS PRN PO PAIN Last administered on 05/03/18 14:42; Start 05/01/18 at 16:00 Levothyroxine Sodium (Synthroid) 50 mcg DAILY06 PO Last administered on 05:55; Start 05/02/18 at 06:00 Linagliptin (Tradjenta) 5 mg QHS PO Last administered on 05/02/18 21:15; Start 05/01/18 at 21:00 Lorazepam (Ativan) 0.25 mg PRN Q6HRS PRN PO ANXIETY / AGITATION Last administered on 05/03/18 17:03; Start 05/01/18 at 14:45 Memantine (Namenda) 10 mg BID PO Last administered on 05/03/18 08:28; Start 05/01/18 at 21:00 Metformin HCl (Glucophage) 1,000 mg BIDWMEALS PO Last administered on 05/03/18 17:03; Start 05/01/18 at 17:00 Ondansetron HCl (Zofran Odt) 4 mg Q8HRS PO Last administered on 05/03/18 05:55 ; Start 05/01/18 at 22:00 Pantoprazole Sodium (Protonix) 40 mg DAILYAC PO Last administered on 05/03/18 08:28; Start 05/02/18 at 07:30 Potassium Chloride (Klor-Con) 10 meq QHS PO Last administered on 05/02/18 21:15 ; Start 05/01/18 at 21:00 Risperidone (RisperDAL) 0.25 mg QHS PO Last administered on 05/02/18 21:16; Start 05/01/18 at 21:00 Sennosides (Senna) 8.6 mg QHS PO Last administered on 05/02/18 21:16; Start 05/01/18 at 21:00 Sodium Chloride (Saline Mist Nasal) 1 felice QID NS Last administered on 05/03/18 08:25; Start 05/01/18 at 17:00 Vancomycin HCl (Vanco Per Pharmacy) 1 each PRN DAILY PRN MC SEE COMMENTS Last administered on 05/01/18 17:24; Start 05/01/18 at 17:15 Sodium Chloride 1,000 ml @ 75 mls/hr [id number] IV Last administered on 05/02/18 21:14; Start 05/01/18 at 17:15; Stop 05/03/18 at 10:52; Status DC Vancomycin HCl 1.75 gm/Sodium Chloride 500 ml @ 250 mls/hr 1X ONCE IV Last administered on 05/01/18at 17:56; Start 05/01/18 at 18:00; Stop 05/01/18 at 19:59; Status DC Vancomycin HCl 1 gm/Sodium Chloride 250 ml @ 250 mls/hr Q24H IV Last administered on 05/03/18at 17:02; Start 05/02/18 at 18:00 Vancomycin HCl (Vancomycin Trough Level) 1 each 1X ONCE MC ; Start 05/03/18 at 17:30; Stop 05/03/18 at 17:31; Status DC Lactobacillus Rhamnosus (Culturelle) 1 cap BID PO Last administered on at 08:25; Start 05/01/18 at 21:00 Ondansetron HCl (Zofran) 4 mg PRN Q4HRS PRN IV NAUSEA/VOMITING Last administered on 05/03/18at 14:42; Start 05/01/18 at 22:00 Active Scripts Active Reported Buspirone Hcl 10 Mg Tablet 1 Tab PO BIDWMEALS Zyprexa Zydis (Olanzapine) 5 Mg Tab.rapdis 2.5 Mg PO PRN Q2HR PRN Zofran (Ondansetron Hcl) 4 Mg Tablet 1 Tab PO Q8HRS Nystatin 15 Gm Powder 1 Felice TP BID Tradjenta (Linagliptin) 5 Mg Tablet 1 Tab PO HS Amaryl (Glimepiride) 1 Mg Tablet 2 Mg PO DAILY Ferrous Sulfate 325 Mg Tablet 1 Tab PO BID Lovenox (Enoxaparin Sodium) 40 Mg/0.4 Ml Disp.syrin 0.4 Ml SQ DAILY D3-50 (Cholecalciferol (Vitamin D3)) 50,000 Unit Capsule 1 Cap PO WEEKLY Zyrtec (Cetirizine Hcl) 10 Mg Tablet 1 Tab PO HS Ascorbic Acid 500 Mg Tablet 500 Mg PO BID Tums Ultra Strength (Calcium Carbonate) 1,177 Mg Tab.chew 1,177 Mg PO PRN BID PRN Senna (Sennosides) 8.6 Mg Tablet 8.6 Mg PO QHS Risperidone 0.5 Mg Tablet 0.25 Mg PO QHS Protonix (Pantoprazole Sodium) 40 Mg Tablet.dr 40 Mg PO DAILY06 Potassium Chloride 10 Meq Tablet.er 10 Meq PO QHS Metformin Hcl 1,000 Mg Tablet 1,000 Mg PO BIDWMEALS Namenda (Memantine Hcl) 10 Mg Tablet 10 Mg PO BID Losartan Potassium (Losartan Potassium) 50 Mg Tablet 100 Mg PO DAILY Lorazepam 0.5 Mg Tablet 0.25 Mg PO PRN Q6HRS PRN Levothyroxine Sodium 50 Mcg Tablet 50 Mcg PO DAILY06 Donepezil Hcl 5 Mg Tablet 5 Mg PO QHS [place] (Sodium Chloride) 44 Ml [place] 44 Ml NS QID Cholestyramine Resin (Cholestyramine) 5 Gm Powder 4 Gm PO BID Carbidopa-Levodopa 25-100 Tab (Carbidopa/Levodopa) 1 Each Tablet 1 Each PO TID Atorvastatin Calcium 10 Mg Tablet 10 Mg PO QHS [place] 5-325 Tablet (Hydrocodone Bit/Acetaminophen) 1 Each Tablet 1 Tab PO PRN Q6HRS PRN I have reviewed the current psychotropics carefully including drug interactions. Risk benefit ratio favors no change other than as noted in my dictated progress note. Diagnosis: Problems: (1) Major depressive disorder, recurrent episode (2) Impulse control disorder (3) Dementia, vascular, with depression (4) Dementia, vascular, with delusions (5) Dementia in Alzheimer's disease with delusions (6) Dementia in Alzheimer's disease with depression (7) Anxiety disorder KYE BOLIVAR MD May 03, 2018 18:41
[2018-05-03] MEDS: VANCOMYCIN PER PHARMACY MC PRN (19:48)
[2018-05-03 20:35] VITALS: BP 146/70
[2018-05-03] MEDS: POTASSIUM CHLORIDE 10 MEQ TABLET.ER. PO SCH (21:26)
[2018-05-03] MEDS: ATORVASTATIN CALCIUM 10 MG TABLET. PO SCH (21:26)
[2018-05-03] MEDS: risperiDONE 0.25 MG TABLET. PO SCH (21:26)
[2018-05-03] MEDS: CETIRIZINE HCL 10 MG TABLET PO SCH (21:26)
[2018-05-03] MEDS: DONEPEZIL HCL 5 MG TABLET. PO SCH (21:26)
[2018-05-03] MEDS: SENNOSIDES 8.6 MG TABLET PO SCH (21:27)
[2018-05-03] MEDS: LINAGLIPTIN 5 MG TABLET PO SCH (21:28)
[2018-05-03 23:07] VITALS: BP 185/76
--- NOTE | 2018-05-03 23:27 | PN ---
DATE: 05/03/2018 SUBJECTIVE: The patient is resting, slightly propped up in bed, no apparent distress. She is awake, alert. On questioning her, denied any complaint. Nursing staff did not voice any concern. Unfortunately, her serum sodium has dropped down from 130-126 despite the fact her thyroid function test and her morning cortisol are normal. We did discontinue her Celexa. PHYSICAL EXAMINATION: GENERAL: When I saw her, she looked pale, but no jaundice, cyanosis, or thyromegaly. No jugular venous distension. No limb edema. VITAL SIGNS: Her heart rate was 67, blood pressure 147/74, temperature was 98.2, respiratory rate was 18 and her oxygen saturation was 96% on room air. HEAD, EYES, EARS, NOSE AND THROAT: Showed normocephalic, atraumatic. NECK: Supple. HEART: Showed normal first and second heart sounds with no gallop, rub or murmur. CHEST: Clear to auscultation. No crepitation or rhonchi. ABDOMEN: Distended, soft, nontender. NEUROLOGIC: She was awake, alert, responding appropriately. All cranial nerves intact. She moves extremities without difficulty. She is mostly chair bound. Her intake was 1567, output was 1050. LABORATORY DATA: As of this morning, her serum sodium was 126, potassium 4.1, chloride 98, bicarbonate 22, anion gap of 6, BUN 6, creatinine 0.9, estimated GFR was 60 mL per minute. Her glucose was 88, calcium was 8.2. Her nasal screen for MRSA PCR was negative. ASSESSMENT: 1. Hyponatremia, improving slowly. Unfortunately, sodium dropped down from 130-126. 2. Vancomycin-sensitive Enterococcus faecalis for which she is now on IV vancomycin. 3. Hyperlipidemia. 4. Hypertension. 5. Hypothyroidism. PLAN: My plan is to discontinue IV fluid. [place] fluid restriction about 1000 mL in 24 hours. AURELIA JONES MD DR: CHELSEY/tiffanie JOB#: [id number] / [id number]
--- NOTE | 2018-05-03 23:27 | PN ---
DATE: 05/02/2018 PSYCHIATRIC PROGRESS NOTE This late entry for 05/02/2017 and covers elements not covered in my initial note. SUBJECTIVE: I met with the patient in the evening. The patient was transferred to [address] [place] [address] Anderson from [facility] where she was admitted for stabilization of her worsening confusion and agitation. She developed a UTI and hyponatremia as she was being psychiatrically stabilized and then was transferred to [address] [place] [address]. I have been asked to consult to follow her on [address] [place] [address] from a psychiatric standpoint. Per nursing report, the patient has been fairly compliant. She does have short-term memory deficits, but mood appears to show some improvement as the UTI is being treated. I met with her in her room. She is seated in her chair with IV in place. Repeatedly asking me about discharge plans and I addressed this with her. No CV, , pulmonary, eye system symptoms on review. MENTAL STATUS EXAM: Oriented to herself and situation. Speech is coherent, somewhat anxious, repetitive, abstraction fair, computation impaired, language function intact. Mood and affect withdrawn, anxious. LABORATORY DATA: Reviewed. IMPRESSION: Major depressive disorder with psychotic features; major neurocognitive disorder, Alzheimer, vascular with delusion, depression. Rest unchanged. PLAN: No change from a psychiatric standpoint. If she is psychiatrically stable after she is medically stabilized, she could return to the group home. Otherwise, we will have her back on the [facility] if she is psychotic, agitated, unmanageable. KYE BOLIVAR MD DR: MARGARITA/tiffanie JOB#: [id number] / [id number]
[2018-05-04 05:48] VITALS: BP 118/67
[2018-05-04] MEDS: LEVOTHYROXINE 50 MCG TABLET PO SCH (05:51)
[2018-05-04] MEDS: ONDANSETRON ODT 4 MG TAB.RAPDIS PO SCH ×3 (05:51→21:04)
[2018-05-04 06:26] LABS: BASO % 1 % (0-3); EOS # 0.2 x10^3/uL (0.0-0.7); EOS % 5 % (0-3); HEMATOCRIT 27.3 % (36.0-47.0); HEMOGLOBIN 9.3 g/dL (12.0-15.5); LYMPH % 35 % (24-48); MEAN CORPUSCULAR HEMOGLOBIN 28 pg (25-35); MEAN CORPUSCULAR HGB CONC 34 g/dL (31-37); MEAN CORPUSCULAR VOLUME 81 fL (79-100); MONO # 0.3 x10^3/uL (0.0-1.1); MONO % 10 % (0-9); NEUT # 1.4 x10^3uL (1.8-7.7); NEUT % 48 % (31-73); PLATELET COUNT 221 x10^3/uL (140-400); RED BLOOD COUNT 3.36 x10^6/uL (3.50-5.40); RED CELL DISTRIBUTION WIDTH 16.5 % (11.5-14.5); WHITE BLOOD COUNT 2.9 x10^3/uL (4.0-11.0)
[2018-05-04 06:37] LABS: CALCIUM 8.9 mg/dL (8.5-10.1); CREATININE 0.9 mg/dL (0.6-1.0); GFR 60.7
[2018-05-04] MEDS: LACTOBACILLUS RHAMNOSUS GG 1 CAPSULE. PO SCH ×2 (08:47→21:03)
[2018-05-04] MEDS: ASCORBIC ACID 500 MG TABLET PO SCH ×2 (08:47→21:03)
[2018-05-04] MEDS: MEMANTINE 10 MG TABLET. PO SCH ×2 (08:47→21:03)
[2018-05-04] MEDS: busPIRone 10 MG TABLET. PO SCH ×2 (08:47→17:49)
[2018-05-04] MEDS: GLIMEPIRIDE 2 MG TABLET PO SCH (08:47)
[2018-05-04] MEDS: metFORMIN 500 MG TABLET PO SCH ×2 (08:48→17:49)
[2018-05-04] MEDS: LOSARTAN 50 MG TABLET. PO SCH (08:48)
[2018-05-04] MEDS: PANTOPRAZOLE 40 MG TABLET. PO SCH (08:48)
[2018-05-04] MEDS: CHOLESTYRAMINE/ASPARTAME 4 GM PACKET PO SCH ×2 (08:48→21:02)
[2018-05-04] MEDS: FERROUS SULFATE 325 MG TABLET. PO SCH ×2 (08:49→21:03)
[2018-05-04] MEDS: CARBIDOPA/LEVODOPA 25/100MG TABLET PO SCH ×3 (08:49→21:02)
[2018-05-04] MEDS: ENOXAPARIN 40 MG/0.4 ML SYRINGE. SQ SCH (08:49)
[2018-05-04] MEDS: SODIUM CHLORIDE 0.65% NASAL SPRAY 45ML BOTTLE. NS SCH ×4 (09:00→21:00)
[2018-05-04] MEDS: NYSTATIN TOPICAL POWDER 15GM BOTTLE. TP SCH ×2 (09:00→21:10)
[2018-05-04 11:17] VITALS: BP 151/60
[2018-05-04 15:58] VITALS: BP 167/80
--- NOTE | 2018-05-04 16:24 | PDOC ---
Exam Note: Dileep Note: Please also refer to the separate dictated note~for this date of service dictated separately.~Patient seen individually. Discussed the patient with Nursing staff reviewed the chart.~Reviewed interim history and current functioning. Reviewed vital signs,~Labs/ Radiology~and current medications noted below. Continue current treatment with the changes noted in the dictated addendum note Assessment: Vital Signs: Vital Signs Date Time Temp Pulse Resp B/P (MAP) Pulse Ox O2 Delivery O2 Flow Rate FiO2 05/04/18 15:58 66 18 167/80 (109) 97 Room Air 05/04/18 11:17 98.3 I&O Intake and Output 05/04/18 07:01 Intake Total 1860 ml Output Total 3975 ml Balance -2115 ml Intake Oral 1860 ml Output Urine Total 3975 ml # Bowel Movements 1 Labs: Laboratory Tests Test 05/03/18 16:25 05/03/18 17:44 05/03/18 21:25 05/04/18 06:12 Glucose (Fingerstick) 112 mg/dL (70-99) H 93 mg/dL (70-99) Vancomycin Level Trough 9.4 mcg/mL (10.0-20.0) L Vancomycin Last Dose Date 05/02/18 Vancomycin Last Dose Time 1800 White Blood Count 2.9 x10^3/uL (4.0-11.0) L Red Blood Count 3.36 x10^6/uL (3.50-5.40) L Hemoglobin 9.3 g/dL (12.0-15.5) L Hematocrit 27.3 % (36.0-47.0) L Mean Corpuscular Volume 81 fL (79-100) Mean Corpuscular Hemoglobin 28 pg (25-35) Mean Corpuscular Hemoglobin Concent 34 g/dL (31-37) Red Cell Distribution Width 16.5 % (11.5-14.5) H Platelet Count 221 x10^3/uL (140-400) Neutrophils (%) (Auto) 48 % (31-73) Lymphocytes (%) (Auto) 35 % (24-48) Monocytes (%) (Auto) 10 % (0-9) H Eosinophils (%) (Auto) 5 % (0-3) H Basophils (%) (Auto) 1 % (0-3) Neutrophils # (Auto) 1.4 x10^3uL (1.8-7.7) L Lymphocytes # (Auto) 1.0 x10^3/uL (1.0-4.8) Monocytes # (Auto) 0.3 x10^3/uL (0.0-1.1) Eosinophils # (Auto) 0.2 x10^3/uL (0.0-0.7) Basophils # (Auto) 0.0 x10^3/uL (0.0-0.2) Sodium Level 134 mmol/L (136-145) L Potassium Level 4.0 mmol/L (3.5-5.1) Chloride Level 101 mmol/L (98-107) Carbon Dioxide Level 24 mmol/L (21-32) Anion Gap 9 (6-14) Blood Urea Nitrogen 5 mg/dL (7-20) L Creatinine 0.9 mg/dL (0.6-1.0) Estimated GFR (Cockcroft-Gault) 60.7 Glucose Level 91 mg/dL (70-99) Calcium Level 8.9 mg/dL (8.5-10.1) Test 05/04/18 07:19 05/04/18 11:29 Glucose (Fingerstick) 82 mg/dL (70-99) 108 mg/dL (70-99) H Current Medications: Meds: Current Medications Ascorbic Acid (Vitamin C) 500 mg BID PO Last administered on 05/04/18at 08:47; Start 05/01/18 at 21:00 Carbidopa/Levodopa (Sinemet 25/100) 1 tab TID PO Last administered on 05/04/18at 15:57; Start 05/01/18 at 21:00 Vitamin D (Vitamin D3) 50,000 unit WEEKLY PO ; Start 05/08/18 at 09:00 Ferrous Sulfate (Feosol) 325 mg BID PO Last administered on 05/04/18 08:49; Start 05/01/18 at 21:00 Losartan Potassium (Cozaar) 100 mg DAILY PO Last administered on 05/04/18at 08:48 ; Start 05/02/18 at 09:00 Nystatin (Nystop) 1 felice BID TP Last administered on 05/02/18at 21:17; Start at 21:00 Olanzapine (ZyPREXA ZYDIS) 2.5 mg PRN Q2HR PRN PO ANXIETY / AGITATION Last administered on 05/04/18 00:11; Start 05/01/18 at 14:45 Atorvastatin Calcium (Lipitor) 10 mg QHS PO Last administered on 05/03/18 21:26 ; Start 05/01/18 at 21:00 Buspirone HCl (Buspar) 10 mg BIDWMEALS PO Last administered on 05/04/18 08:47; Start 05/01/18 at 17:00 Calcium Carbonate/ Glycine (Tums) 750 mg PRN BID PRN PO INDIGESTION; Start 05/01 at 16:30 Cetirizine HCl (ZyrTEC) 10 mg QHS PO Last administered on 05/03/18 21:26; Start 05/01/18 at 21:00 Cholestyramine Resin (Questran Light) 4 gm BID PO Last administered on 08:48; Start 05/01/18 at 21:00 Donepezil HCl (Aricept) 5 mg QHS PO Last administered on 05/03/18 21:26; Start 05/01/18 at 21:00 Enoxaparin Sodium (Lovenox 40mg Syringe) 40 mg DAILY SQ Last administered on 08:49; Start 05/02/18 at 09:00 Glimepiride (Amaryl) 2 mg DAILY PO Last administered on 05/04/18 08:47; Start 05/02/18 at 09:00 Acetaminophen/ Hydrocodone Bitart (Lortab 5/325) 1 tab PRN Q6HRS PRN PO PAIN Last administered on 05/03/18 14:42; Start 05/01/18 at 16:00 Levothyroxine Sodium (Synthroid) 50 mcg DAILY06 PO Last administered on 05:51; Start 05/02/18 at 06:00 Linagliptin (Tradjenta) 5 mg QHS PO Last administered on 05/03/18 21:28; Start 05/01/18 at 21:00 Lorazepam (Ativan) 0.25 mg PRN Q6HRS PRN PO ANXIETY / AGITATION Last administered on 05/03/18 17:03; Start 05/01/18 at 14:45 Memantine (Namenda) 10 mg BID PO Last administered on 05/04/18 08:47; Start 05/01/18 at 21:00 Metformin HCl (Glucophage) 1,000 mg BIDWMEALS PO Last administered on 05/04/18 08:48; Start 05/01/18 at 17:00 Ondansetron HCl (Zofran Odt) 4 mg Q8HRS PO Last administered on 05/04/18 15:57 ; Start 05/01/18 at 22:00 Pantoprazole Sodium (Protonix) 40 mg DAILYAC PO Last administered on 05/04/18 08:48; Start 05/02/18 at 07:30 Potassium Chloride (Klor-Con) 10 meq QHS PO Last administered on 05/03/18 21:26 ; Start 05/01/18 at 21:00 Risperidone (RisperDAL) 0.25 mg QHS PO Last administered on 05/03/18 21:26; Start 05/01/18 at 21:00 Sennosides (Senna) 8.6 mg QHS PO Last administered on 05/02/18 21:16; Start 05/01/18 at 21:00 Sodium Chloride (Saline Mist Nasal) 1 felice QID NS Last administered on 05/03/18 08:25; Start 05/01/18 at 17:00 Vancomycin HCl (Vanco Per Pharmacy) 1 each PRN DAILY PRN MC SEE COMMENTS Last administered on 05/03/18 19:48; Start 05/01/18 at 17:15 Sodium Chloride 1,000 ml @ 75 mls/hr [id number] IV Last administered on 05/02/18 21:14; Start 05/01/18 at 17:15; Stop 05/03/18 at 10:52; Status DC Vancomycin HCl 1.75 gm/Sodium Chloride 500 ml @ 250 mls/hr 1X ONCE IV Last administered on 05/01/18 17:56; Start 05/01/18 at 18:00; Stop 05/01/18 at 19:59; Status DC Vancomycin HCl 1 gm/Sodium Chloride 250 ml @ 250 mls/hr Q24H IV Last administered on 05/03/18 17:02; Start 05/02/18 at 18:00 Vancomycin HCl (Vancomycin Trough Level) 1 each 1X ONCE MC ; Start 05/03/18 at 17:30; Stop 05/03/18 at 17:31; Status DC Lactobacillus Rhamnosus (Culturelle) 1 cap BID PO Last administered on at 08:47; Start 05/01/18 at 21:00 Ondansetron HCl (Zofran) 4 mg PRN Q4HRS PRN IV NAUSEA/VOMITING Last administered on 05/03/18at 14:42; Start 05/01/18 at 22:00 Vancomycin HCl (Vancomycin Trough Level) 1 each 1X ONCE MC ; Start 05/05/18 at 17:30; Stop 05/05/18 at 17:31 Nitrofurantoin Macrocrystals (Macrobid) 100 mg BID PO ; Start 05/04/18 at 21:00 Active Scripts Active Reported Buspirone Hcl 10 Mg Tablet 1 Tab PO BIDWMEALS Zyprexa Zydis (Olanzapine) 5 Mg Tab.rapdis 2.5 Mg PO PRN Q2HR PRN Zofran (Ondansetron Hcl) 4 Mg Tablet 1 Tab PO Q8HRS Nystatin 15 Gm Powder 1 Felice TP BID Tradjenta (Linagliptin) 5 Mg Tablet 1 Tab PO HS Amaryl (Glimepiride) 1 Mg Tablet 2 Mg PO DAILY Ferrous Sulfate 325 Mg Tablet 1 Tab PO BID Lovenox (Enoxaparin Sodium) 40 Mg/0.4 Ml Disp.syrin 0.4 Ml SQ DAILY D3-50 (Cholecalciferol (Vitamin D3)) 50,000 Unit Capsule 1 Cap PO WEEKLY Zyrtec (Cetirizine Hcl) 10 Mg Tablet 1 Tab PO HS Ascorbic Acid 500 Mg Tablet 500 Mg PO BID Tums Ultra Strength (Calcium Carbonate) 1,177 Mg Tab.chew 1,177 Mg PO PRN BID PRN Senna (Sennosides) 8.6 Mg Tablet 8.6 Mg PO QHS Risperidone 0.5 Mg Tablet 0.25 Mg PO QHS Protonix (Pantoprazole Sodium) 40 Mg Tablet.dr 40 Mg PO DAILY06 Potassium Chloride 10 Meq Tablet.er 10 Meq PO QHS Metformin Hcl 1,000 Mg Tablet 1,000 Mg PO BIDWMEALS Namenda (Memantine Hcl) 10 Mg Tablet 10 Mg PO BID Losartan Potassium (Losartan Potassium) 50 Mg Tablet 100 Mg PO DAILY Lorazepam 0.5 Mg Tablet 0.25 Mg PO PRN Q6HRS PRN Levothyroxine Sodium 50 Mcg Tablet 50 Mcg PO DAILY06 Donepezil Hcl 5 Mg Tablet 5 Mg PO QHS [place] (Sodium Chloride) 44 Ml [place] 44 Ml NS QID Cholestyramine Resin (Cholestyramine) 5 Gm Powder 4 Gm PO BID Carbidopa-Levodopa 25-100 Tab (Carbidopa/Levodopa) 1 Each Tablet 1 Each PO TID Atorvastatin Calcium 10 Mg Tablet 10 Mg PO QHS [place] 5-325 Tablet (Hydrocodone Bit/Acetaminophen) 1 Each Tablet 1 Tab PO PRN Q6HRS PRN I have reviewed the current psychotropics carefully including drug interactions. Risk benefit ratio favors no change other than as noted in my dictated progress note. Diagnosis: Problems: (1) Major depressive disorder, recurrent episode (2) Impulse control disorder (3) Dementia, vascular, with depression (4) Dementia, vascular, with delusions (5) Dementia in Alzheimer's disease with delusions (6) Dementia in Alzheimer's disease with depression (7) Anxiety disorder KYE BOLIVAR MD May 04, 2018 16:24
[2018-05-04] MEDS: VANCOMYCIN 1 GM in IV NORMAL SALINE 250ML 250 ML IV SCH (18:18)
[2018-05-04 19:43] VITALS: BP 159/67
[2018-05-04] MEDS: SENNOSIDES 8.6 MG TABLET PO SCH (21:02)
[2018-05-04] MEDS: CETIRIZINE HCL 10 MG TABLET PO SCH (21:02)
[2018-05-04] MEDS: DONEPEZIL HCL 5 MG TABLET. PO SCH (21:02)
[2018-05-04] MEDS: NITROFURANTOIN MONOHYD/M-CRYST 100 MG CAPSULE. PO SCH (21:02)
[2018-05-04] MEDS: ATORVASTATIN CALCIUM 10 MG TABLET. PO SCH (21:02)
[2018-05-04] MEDS: risperiDONE 0.25 MG TABLET. PO SCH (21:03)
[2018-05-04] MEDS: HYDROcodone/APAP 5/325MG 1 TAB TABLET PO PRN (21:03)
[2018-05-04] MEDS: LINAGLIPTIN 5 MG TABLET PO SCH (21:03)
[2018-05-04] MEDS: POTASSIUM CHLORIDE 10 MEQ TABLET.ER. PO SCH (21:03)
--- NOTE | 2018-05-04 21:37 | PN ---
DATE: 05/03/2018 PSYCHIATRIC PROGRESS NOTE This late entry for 05/03/2018 covers elements not covered in my initial note. SUBJECTIVE: Met with the patient in the evening and discussed with nursing staff. Overall, per nursing report, from a psychiatric standpoint, the patient remains a little anxious, obsessive about wanting to be discharged, but otherwise cooperative. She has not been aggressive or disruptive. No clear psychotic symptoms. She does have some short-term memory deficits. I met with her in her room. She still has an IV going and the first question to me was "when can I go home" and she repeated this several times during our visit. We did address this and she is understanding that she needs to be medically stable before being discharged. MENTAL STATUS EXAM: Oriented to herself and situation. Speech is coherent, abstraction fair, computation impaired, language function intact. Short term memory does have some deficits. No suicidal or homicidal ideation. IMPRESSION: Unchanged from initial note. PLAN: No change from initial note. KYE BOLIVAR MD DR: MARGARITA/tiffanie JOB#: [id number] / [id number]
--- NOTE | 2018-05-05 02:01 | PN ---
DATE: 05/04/2018 SUBJECTIVE: The patient is resting slightly propped up in bed, sleeping comfortably, in no apparent distress. She apparently has been sitting in her chair all this morning. Her lab work showed that her sodium has dramatically risen from 126 to 134. She denied any complaint. The nursing staff did not voice any concern, that she has been very pleasant, compliant and cooperative with care and medication. OBJECTIVE: GENERAL: When I examined her, she was somewhat pale, but no jaundice, cyanosis, or thyromegaly. No jugular venous distension. No lymphedema. VITAL SIGNS: Her heart rate was 64, blood pressure 151/60, temperature was 98.3, respiratory rate was 20, and oxygen saturation was 99%. The rest of the examination is stable. Her intake over the last 24 hours was 780, output was 600. LABORATORY DATA: As of this morning, her serum sodium was 134, potassium 4, chloride 101, bicarbonate 24, anion gap of 9, BUN 5, creatinine 0.9, estimated GFR was 60 mL per minute, her glucose was 91, calcium was 8.9. White cell count was 2900, hemoglobin 9.3, hematocrit 27.3, MCV 81 and platelet count of 221,000. Her urine culture again showed that she grew E. coli, Enterococcus faecalis sensitive to nitrofurantoin, penicillin, and vancomycin. Unfortunately, she is ALLERGIC TO PENICILLIN and her estimated GFR was around 60 by lab calculation and only 42 mL per hour by pharmacy calculation. PLAN: My plan is to continue with IV vancomycin for now and repeat her labs tomorrow. AURELIA JONES MD DR: CHELSEY/tiffanie JOB#: [id number] / [id number]
[2018-05-05] MEDS: LEVOTHYROXINE 50 MCG TABLET PO SCH (05:36)
[2018-05-05] MEDS: ONDANSETRON ODT 4 MG TAB.RAPDIS PO SCH ×3 (05:36→20:09)
[2018-05-05 05:49] VITALS: BP 147/86
[2018-05-05 06:08] LABS: HEMATOCRIT 28.4 % (36.0-47.0); HEMOGLOBIN 9.6 g/dL (12.0-15.5); RED BLOOD COUNT 3.48 x10^6/uL (3.50-5.40); RED CELL DISTRIBUTION WIDTH 16.5 % (11.5-14.5); WHITE BLOOD COUNT 3.1 x10^3/uL (4.0-11.0)
[2018-05-05 06:17] LABS: CALCIUM 8.8 mg/dL (8.5-10.1); GFR 53.8; POTASSIUM 4.4 mmol/L (3.5-5.1)
[2018-05-05] MEDS: SODIUM CHLORIDE 0.65% NASAL SPRAY 45ML BOTTLE. NS SCH ×4 (10:00→20:11)
[2018-05-05] MEDS: NYSTATIN TOPICAL POWDER 15GM BOTTLE. TP SCH ×2 (10:00→20:11)
[2018-05-05] MEDS: ASCORBIC ACID 500 MG TABLET PO SCH ×2 (12:25→20:09)
[2018-05-05] MEDS: CHOLESTYRAMINE/ASPARTAME 4 GM PACKET PO SCH ×2 (12:25→20:07)
[2018-05-05] MEDS: NITROFURANTOIN MONOHYD/M-CRYST 100 MG CAPSULE. PO SCH ×2 (12:25→20:09)
[2018-05-05] MEDS: busPIRone 5 MG TABLET. PO SCH ×2 (12:26→17:19)
[2018-05-05] MEDS: PANTOPRAZOLE 40 MG TABLET. PO SCH (12:26)
[2018-05-05] MEDS: CARBIDOPA/LEVODOPA 25/100MG TABLET PO SCH ×3 (12:26→20:09)
[2018-05-05] MEDS: FERROUS SULFATE 325 MG TABLET. PO SCH ×2 (12:26→20:07)
[2018-05-05] MEDS: LACTOBACILLUS RHAMNOSUS GG 1 CAPSULE. PO SCH ×2 (12:26→20:09)
[2018-05-05] MEDS: GLIMEPIRIDE 2 MG TABLET PO SCH (12:26)
[2018-05-05] MEDS: LOSARTAN 50 MG TABLET. PO SCH (12:26)
[2018-05-05] MEDS: MEMANTINE 10 MG TABLET. PO SCH ×2 (12:26→20:09)
[2018-05-05] MEDS: metFORMIN 500 MG TABLET PO SCH ×2 (12:26→17:19)
[2018-05-05] MEDS: ENOXAPARIN 40 MG/0.4 ML SYRINGE. SQ SCH (12:28)
[2018-05-05] MEDS ORDERED: ACETAMINOPHEN 325 MG TABLET PO PRN (17:45)
--- NOTE | 2018-05-05 17:56 | PDOC ---
Exam Note: Dileep Note: Please also refer to the separate dictated note~for this date of service dictated separately.~Patient seen individually. Discussed the patient with Nursing staff reviewed the chart.~Reviewed interim history and current functioning. Reviewed vital signs,~Labs/ Radiology~and current medications noted below. Continue current treatment with the changes noted in the dictated addendum note Assessment: Vital Signs: Vital Signs Date Time Temp Pulse Resp B/P (MAP) Pulse Ox O2 Delivery O2 Flow Rate FiO2 05/05/18 12:26 61 147/86 05/05/18 11:30 Room Air 05/05/18 05:49 98.0 16 94 I&O Intake and Output 05/05/18 07:01 Intake Total 1243 ml Output Total 1200 ml Balance 43 ml Intake Oral 720 ml IV Total 523 ml Output Urine Total 1200 ml Labs: Laboratory Tests Test 05/04/18 20:13 05/05/18 05:40 05/05/18 07:46 Glucose (Fingerstick) 88 mg/dL (70-99) 89 mg/dL (70-99) White Blood Count 3.1 x10^3/uL (4.0-11.0) L Red Blood Count 3.48 x10^6/uL (3.50-5.40) L Hemoglobin 9.6 g/dL (12.0-15.5) L Hematocrit 28.4 % (36.0-47.0) L Mean Corpuscular Volume 82 fL (79-100) Mean Corpuscular Hemoglobin 28 pg (25-35) Mean Corpuscular Hemoglobin Concent 34 g/dL (31-37) Red Cell Distribution Width 16.5 % (11.5-14.5) H Platelet Count 233 x10^3/uL (140-400) Sodium Level 135 mmol/L (136-145) L Potassium Level 4.4 mmol/L (3.5-5.1) Chloride Level 100 mmol/L (98-107) Carbon Dioxide Level 24 mmol/L (21-32) Anion Gap 11 (6-14) Blood Urea Nitrogen 6 mg/dL (7-20) L Creatinine 1.0 mg/dL (0.6-1.0) Estimated GFR (Cockcroft-Gault) 53.8 Glucose Level 120 mg/dL (70-99) H Calcium Level 8.8 mg/dL (8.5-10.1) Current Medications: Meds: Current Medications Ascorbic Acid (Vitamin C) 500 mg BID PO Last administered on 05/05/18 12:25; Start 05/01/18 at 21:00 Carbidopa/Levodopa (Sinemet 25/100) 1 tab TID PO Last administered on 05/05/18 12:26; Start 05/01/18 at 21:00 Vitamin D (Vitamin D3) 50,000 unit WEEKLY PO ; Start 05/08/18 at 09:00 Ferrous Sulfate (Feosol) 325 mg BID PO Last administered on 05/05/18 12:26; Start 05/01/18 at 21:00 Losartan Potassium (Cozaar) 100 mg DAILY PO Last administered on 05/05/18 12:26 ; Start 05/02/18 at 09:00 Nystatin (Nystop) 1 felice BID TP Last administered on 05/05/18 10:00; Start at 21:00 Olanzapine (ZyPREXA ZYDIS) 2.5 mg PRN Q2HR PRN PO ANXIETY / AGITATION Last administered on 05/04/18 21:02; Start 05/01/18 at 14:45 Atorvastatin Calcium (Lipitor) 10 mg QHS PO Last administered on 05/04/18 21:02 ; Start 05/01/18 at 21:00 Buspirone HCl (Buspar) 10 mg BIDWMEALS PO Last administered on 05/04/18 17:49; Start 05/01/18 at 17:00; Stop 05/05/18 at 07:29; Status DC Calcium Carbonate/ Glycine (Tums) 750 mg PRN BID PRN PO INDIGESTION; Start 05/01 at 16:30 Cetirizine HCl (ZyrTEC) 10 mg QHS PO Last administered on 05/04/18 21:02; Start 05/01/18 at 21:00 Cholestyramine Resin (Questran Light) 4 gm BID PO Last administered on 12:25; Start 05/01/18 at 21:00 Donepezil HCl (Aricept) 5 mg QHS PO Last administered on 05/04/18 21:02; Start 05/01/18 at 21:00 Enoxaparin Sodium (Lovenox 40mg Syringe) 40 mg DAILY SQ Last administered on 12:28; Start 05/02/18 at 09:00 Glimepiride (Amaryl) 2 mg DAILY PO Last administered on 05/05/18 12:26; Start 05/02/18 at 09:00 Acetaminophen/ Hydrocodone Bitart (Lortab 5/325) 1 tab PRN Q6HRS PRN PO PAIN Last administered on 05/04/18 21:03; Start 05/01/18 at 16:00 Levothyroxine Sodium (Synthroid) 50 mcg DAILY06 PO Last administered on 05:36; Start 05/02/18 at 06:00 Linagliptin (Tradjenta) 5 mg QHS PO Last administered on 05/04/18 21:03; Start 05/01/18 at 21:00 Lorazepam (Ativan) 0.25 mg PRN Q6HRS PRN PO ANXIETY / AGITATION Last administered on 05/03/18 17:03; Start 05/01/18 at 14:45 Memantine (Namenda) 10 mg BID PO Last administered on 05/05/18 12:26; Start 05/01/18 at 21:00 Metformin HCl (Glucophage) 1,000 mg BIDWMEALS PO Last administered on 05/05/18 17:19; Start 05/01/18 at 17:00 Ondansetron HCl (Zofran Odt) 4 mg Q8HRS PO Last administered on 05/05/18 05:36 ; Start 05/01/18 at 22:00 Pantoprazole Sodium (Protonix) 40 mg DAILYAC PO Last administered on 05/05/18 12:26; Start 05/02/18 at 07:30 Potassium Chloride (Klor-Con) 10 meq QHS PO Last administered on 05/04/18 21:03 ; Start 05/01/18 at 21:00 Risperidone (RisperDAL) 0.25 mg QHS PO Last administered on 05/04/18 21:03; Start 05/01/18 at 21:00 Sennosides (Senna) 8.6 mg QHS PO Last administered on 05/04/18 21:02; Start 05/01/18 at 21:00 Sodium Chloride (Saline Mist Nasal) 1 felice QID NS Last administered on 05/05/18 17:19; Start 05/01/18 at 17:00 Vancomycin HCl (Vanco Per Pharmacy) 1 each PRN DAILY PRN MC SEE COMMENTS Last administered on 05/03/18 19:48; Start 05/01/18 at 17:15 Sodium Chloride 1,000 ml @ 75 mls/hr [id number] IV Last administered on 05/02/18 21:14; Start 05/01/18 at 17:15; Stop 05/03/18 at 10:52; Status DC Vancomycin HCl 1.75 gm/Sodium Chloride 500 ml @ 250 mls/hr 1X ONCE IV Last administered on 05/01/18 17:56; Start 05/01/18 at 18:00; Stop 05/01/18 at 19:59; Status DC Vancomycin HCl 1 gm/Sodium Chloride 250 ml @ 250 mls/hr Q24H IV Last administered on 05/04/18at 18:18; Start 05/02/18 at 18:00 Vancomycin HCl (Vancomycin Trough Level) 1 each 1X ONCE MC ; Start 05/03/18 at 17:30; Stop 05/03/18 at 17:31; Status DC Lactobacillus Rhamnosus (Culturelle) 1 cap BID PO Last administered on 12:26; Start 05/01/18 at 21:00 Ondansetron HCl (Zofran) 4 mg PRN Q4HRS PRN IV NAUSEA/VOMITING Last administered on 05/03/18 14:42; Start 05/01/18 at 22:00 Vancomycin HCl (Vancomycin Trough Level) 1 each 1X ONCE MC ; Start 05/05/18 at 17:30; Stop 05/05/18 at 17:31; Status DC Nitrofurantoin Macrocrystals (Macrobid) 100 mg BID PO Last administered on 12:25; Start 05/04/18 at 21:00 Buspirone HCl (Buspar) 10 mg BIDWMEALS PO Last administered on 05/05/18 17:19; Start 05/05/18 at 08:00 Acetaminophen (Tylenol) 650 mg PRN Q6HRS PRN PO PAIN / TEMP; Start 05/05/18 at 17:45; Status UNV Active Scripts Active Reported Buspirone Hcl 10 Mg Tablet 1 Tab PO BIDWMEALS Zyprexa Zydis (Olanzapine) 5 Mg Tab.rapdis 2.5 Mg PO PRN Q2HR PRN Zofran (Ondansetron Hcl) 4 Mg Tablet 1 Tab PO Q8HRS Nystatin 15 Gm Powder 1 Felice TP BID Tradjenta (Linagliptin) 5 Mg Tablet 1 Tab PO HS Amaryl (Glimepiride) 1 Mg Tablet 2 Mg PO DAILY Ferrous Sulfate 325 Mg Tablet 1 Tab PO BID Lovenox (Enoxaparin Sodium) 40 Mg/0.4 Ml Disp.syrin 0.4 Ml SQ DAILY D3-50 (Cholecalciferol (Vitamin D3)) 50,000 Unit Capsule 1 Cap PO WEEKLY Zyrtec (Cetirizine Hcl) 10 Mg Tablet 1 Tab PO HS Ascorbic Acid 500 Mg Tablet 500 Mg PO BID Tums Ultra Strength (Calcium Carbonate) 1,177 Mg Tab.chew 1,177 Mg PO PRN BID PRN Senna (Sennosides) 8.6 Mg Tablet 8.6 Mg PO QHS Risperidone 0.5 Mg Tablet 0.25 Mg PO QHS Protonix (Pantoprazole Sodium) 40 Mg Tablet.dr 40 Mg PO DAILY06 Potassium Chloride 10 Meq Tablet.er 10 Meq PO QHS Metformin Hcl 1,000 Mg Tablet 1,000 Mg PO BIDWMEALS Namenda (Memantine Hcl) 10 Mg Tablet 10 Mg PO BID Losartan Potassium (Losartan Potassium) 50 Mg Tablet 100 Mg PO DAILY Lorazepam 0.5 Mg Tablet 0.25 Mg PO PRN Q6HRS PRN Levothyroxine Sodium 50 Mcg Tablet 50 Mcg PO DAILY06 Donepezil Hcl 5 Mg Tablet 5 Mg PO QHS [place] (Sodium Chloride) 44 Ml [place] 44 Ml NS QID Cholestyramine Resin (Cholestyramine) 5 Gm Powder 4 Gm PO BID Carbidopa-Levodopa 25-100 Tab (Carbidopa/Levodopa) 1 Each Tablet 1 Each PO TID Atorvastatin Calcium 10 Mg Tablet 10 Mg PO QHS [place] 5-325 Tablet (Hydrocodone Bit/Acetaminophen) 1 Each Tablet 1 Tab PO PRN Q6HRS PRN I have reviewed the current psychotropics carefully including drug interactions. Risk benefit ratio favors no change other than as noted in my dictated progress note. Diagnosis: Problems: (1) Major depressive disorder, recurrent episode (2) Impulse control disorder (3) Dementia, vascular, with depression (4) Dementia, vascular, with delusions (5) Dementia in Alzheimer's disease with delusions (6) Dementia in Alzheimer's disease with depression (7) Anxiety disorder KYE BOLIVAR MD May 05, 2018 17:56
[2018-05-05] MEDS: VANCOMYCIN PER PHARMACY MC PRN (18:14)
[2018-05-05] MEDS: VANCOMYCIN 1 GM in IV NORMAL SALINE 250ML 250 ML IV SCH (18:16)
[2018-05-05 19:15] VITALS: BP 148/84
--- NOTE | 2018-05-05 19:58 | PN ---
DATE: 05/04/2018 This late entry for 05/04/2018 covers elements not covered in my initial note. SUBJECTIVE: I met with the patient in the evening. Per nursing report, the patient has been fairly stable from a psychiatric standpoint. She gets anxious, repetitively asking about when she can be discharged and this is what was the first thing she talked to me when I met her in the evening. Otherwise, there has been no behavioral dyscontrol, agitation, aggression. REVIEW OF SYSTEMS: Ambulation impaired, complains of some tiredness. No CV, , pulmonary, eye system symptoms on review. MENTAL STATUS EXAM: Oriented to herself and situation. Speech has some latency, coherent. Abstraction fair, computation impaired, language function intact, attention span short. Mood and affect somewhat withdrawn at times, anxious, but otherwise appropriate. She does have short-term memory deficits. LABORATORY DATA: Reviewed. IMPRESSION: Unchanged from initial note. PLAN: No change from initial note. KYE BOLIVAR MD DR: MARGARITA/tiffanie JOB#: [id number] / [id number]
[2018-05-05] MEDS: LINAGLIPTIN 5 MG TABLET PO SCH (20:07)
[2018-05-05] MEDS: POTASSIUM CHLORIDE 10 MEQ TABLET.ER. PO SCH (20:09)
[2018-05-05] MEDS: ATORVASTATIN CALCIUM 10 MG TABLET. PO SCH (20:09)
[2018-05-05] MEDS: risperiDONE 0.25 MG TABLET. PO SCH (20:09)
[2018-05-05] MEDS: SENNOSIDES 8.6 MG TABLET PO SCH (20:09)
[2018-05-05] MEDS: CETIRIZINE HCL 10 MG TABLET PO SCH (20:10)
[2018-05-05] MEDS: DONEPEZIL HCL 5 MG TABLET. PO SCH (20:10)
--- NOTE | 2018-05-05 21:54 | PN ---
DATE: 05/05/2018 SUBJECTIVE: The patient is sitting comfortably in her chair, in no apparent distress, awake, alert. On questioning her, denied any complaint. The nursing staff did not voice any concerns as she had an uneventful night. PHYSICAL EXAMINATION: GENERAL: When I examined her, she was pale, no jaundice, cyanosis, or thyromegaly. No jugular venous distension. No limb edema. VITAL SIGNS: Her heart rate was 61, blood pressure was 147/86, temperature was 98, respiratory rate 16 and oxygen saturation was 94%. HEENT: Examination of the head, eyes, ears, nose and throat showed normocephalic, atraumatic. NECK: Supple. HEART: Showed normal first and second heart sounds. No gallop, rub or murmur. CHEST: Clear to auscultation. No crepitation or rhonchi. ABDOMEN: Distended, soft, nontender. NEUROLOGIC: She is demented; however, she is awake and responding at times appropriately. All her cranial nerves are intact. EXTREMITIES: She moves extremities without difficulty. She is mostly bedbound, chair bound. LABORATORY DATA: Her lab work showed a white cell count 3100, hemoglobin 9.6, hematocrit 28, MCV 82 and platelet count 153,000. Her chemistry showed serum sodium 135, potassium 4.4, chloride 100, bicarbonate 24, anion gap of 11, BUN 6, creatinine 1, estimated GFR was 54 mL per minute. Her glucose was 120, calcium was 8.8. ASSESSMENT: 1. Hyponatremia, improving slowly. Unfortunately, sodium dropped but improving. Her sodium is up now to 135 after we instituted fluid restriction and discontinue ____. 2. Vancomycin, sensitive to Enterococcus faecalis, for which she is now on IV vancomycin. 3. Hyperlipidemia. 4. Hypertension. 5. Hypothyroidism. PLAN: Plan is to discontinue the IV fluid, continue with fluid restriction, continue with the vancomycin. Await placement. AURELIA JONES MD DR: CHELSEY/tiffanie JOB#: [id number] / [id number]
[2018-05-06] MEDS: LEVOTHYROXINE 50 MCG TABLET PO SCH (05:28)
[2018-05-06] MEDS: ONDANSETRON ODT 4 MG TAB.RAPDIS PO SCH (05:28)
[2018-05-06 06:10] VITALS: BP 146/81
[2018-05-06] MEDS ORDERED: NITR100C6 PO (11:39)
[2018-05-06] MEDS: ASCORBIC ACID 500 MG TABLET PO SCH (11:52)
[2018-05-06] MEDS: CARBIDOPA/LEVODOPA 25/100MG TABLET PO SCH (11:53)
[2018-05-06] MEDS: metFORMIN 500 MG TABLET PO SCH (11:53)
[2018-05-06] MEDS: busPIRone 5 MG TABLET. PO SCH (11:53)
[2018-05-06] MEDS: NITROFURANTOIN MONOHYD/M-CRYST 100 MG CAPSULE. PO SCH (11:53)
[2018-05-06] MEDS: LACTOBACILLUS RHAMNOSUS GG 1 CAPSULE. PO SCH (11:53)
[2018-05-06] MEDS: MEMANTINE 10 MG TABLET. PO SCH (11:53)
[2018-05-06] MEDS: GLIMEPIRIDE 2 MG TABLET PO SCH (11:53)
[2018-05-06] MEDS: PANTOPRAZOLE 40 MG TABLET. PO SCH (11:54)
[2018-05-06] MEDS: LOSARTAN 50 MG TABLET. PO SCH (11:54)
[2018-05-06] MEDS: ENOXAPARIN 40 MG/0.4 ML SYRINGE. SQ SCH (11:54)
[2018-05-06] MEDS: FERROUS SULFATE 325 MG TABLET. PO SCH (11:54)
[2018-05-06] MEDS: SODIUM CHLORIDE 0.65% NASAL SPRAY 45ML BOTTLE. NS SCH (11:55)
[2018-05-06] MEDS: NYSTATIN TOPICAL POWDER 15GM BOTTLE. TP SCH (11:55)
[2018-05-06] MEDS: CHOLESTYRAMINE/ASPARTAME 4 GM PACKET PO SCH (11:55)
[2018-05-06 11:57] VITALS: BP 149/68
[2018-05-08] MEDS ORDERED: CHOLECALCIFEROL (VITAMIN D3) 50,000 UNIT CAPSULE PO SCH (09:00)
--- NOTE | 2018-06-02 12:45 | DS ---
DATE OF DISCHARGE: 05/06/2018 HOSPITAL COURSE: The patient is a 77-year-old female patient who was originally seen at [facility] where her sodium was noted to be low and continued to drift further down. In fact, her sodium has drifted down further to 226 mEq per liter. I recommended to discontinue her Celexa and her urine culture has grown Streptococcus species, eventually turned out to be Enterococcus faecalis greater than 100,000 colony forming units per mL, sensitive to nitrofurantoin, penicillin, and vancomycin. Unfortunately, SHE IS ALLERGIC TO PENICILLIN. Her estimated GFR was less than 60. Nitrofurantoin would not be effective and therefore, a decision was made to transfer her to [facility] to treat her with IV vancomycin. I will start her on IV fluids to check her thyroid function as well as morning cortisol to rule out other possibilities that cause hyponatremia. The patient did well. Her sodium has gradually improved up to 135 and her kidney function also has improved such that we were able to discontinue her vancomycin and switch her back to nitrofurantoin and once stabilized, the decision was made to discharge her home to continue on oral antibiotic. PHYSICAL EXAMINATION: GENERAL: She looked well and was clearly in no apparent respiratory distress. No pallor, jaundice, cyanosis, or thyromegaly. No jugular venous distension. No limb edema. VITAL SIGNS: Her heart rate was 61, blood pressure 147/86, temperature was 98, respiratory rate was 16 and oxygen saturation was 94%. HEAD, EYES, EARS, NOSE AND THROAT: Showed normocephalic, atraumatic. NECK: Supple. HEART: Showed normal first and second heart sounds. No gallop, rub or murmur. CHEST: Clear to auscultation. No crepitation or rhonchi. ABDOMEN: Slightly distended, soft, nontender. NEUROLOGIC: She is demented; however, she is awake and responding to respond at times appropriately. All her cranial nerves are intact. She moves extremities without difficulty; however, she is mostly bedbound, chair bound. As of the day of discharge, her serum sodium went up to 135, potassium 4.4, chloride 100, bicarbonate 24, anion gap of 11, BUN 6, creatinine 1, estimated GFR was 54 mL per minute. Her glucose 120 and calcium was 8.8. Her white cell count was 3100, hemoglobin was 9.6, hematocrit 28.4, MCV 82 and platelet count of 133. She was discharged home to continue on nitrofurantoin 100 mg twice a day for 10 more days, ascorbic acid 500 mg twice a day, atorvastatin calcium 10 mg once a day, buspirone 10 mg twice a day, calcium carbonate twice a day, carbidopa/levodopa 25/100 one tablet 3 times a day, Zyrtec 10 mg once a day, ergocalciferol 50,000 international unit once a week, cholestyramine 5 grams powder twice a day, Aricept 5 mg at bedtime, ferrous sulfate 325 mg once a day, glimepiride 1 mg daily, levothyroxine sodium 50 mcg daily, linagliptin 5 mg once a day, lorazepam 0.25 mg every 6 hours, losartan potassium 50 mg once a day, olanzapine for Zyprexa 2.5 mg every 2 hours as needed. FINAL DISCHARGE DIAGNOSES: 1. Hyponatremia, resolved. Her most recent serum sodium is up to 135 mEq per liter. 2. Vancomycin sensitive Enterococcus faecalis for which she is now on oral nitrofurantoin, hyperlipidemia, hypertension and hypothyroidism. AURELIA JONES MD DR: CHELSEY/tiffanie JOB#: [id number] / [id number]
== END 2018-05-06 14:10 | DRG 872 ==
LOC: 1 SOUTH 14:27
PROVIDERS: ADMIT Internal Medicine; ATTEND Internal Medicine
DX: A41.9 Sepsis, unspecified organism (principal); E87.1 Hypo-osmolality and hyponatremia; N39.0 Urinary tract infection, site not specified; F33.3 Major depressive disorder, recurrent, severe with psychotic symptoms; G30.9 Alzheimer's disease, unspecified; D64.9 Anemia, unspecified; E03.9 Hypothyroidism, unspecified; E11.42 Type 2 diabetes mellitus with diabetic polyneuropathy; E78.5 Hyperlipidemia, unspecified; F01.50 Vascular dementia, unspecified severity, without behavioral disturbance, psychotic disturbance, mood disturbance, and anxiety; F63.9 Impulse disorder, unspecified; F41.9 Anxiety disorder, unspecified; I10 Essential (primary) hypertension; Z88.0 Allergy status to penicillin; Z79.899 Other long term (current) drug therapy; Z82.3 Family history of stroke; Z90.710 Acquired absence of both cervix and uterus
CPT/HCPCS: 36415; 71045; 80048; 80053; 80202; 82533; 82947; 84443; 85025; 85027; 87641; J1650; J2405; J3370; J7040; J7050; Q0162; 97116; 97530; 97535; J7030